=== PATIENT | female | born 1965 | race Caucasian/White ===

== ENCOUNTER 2018-04-30 10:11 | Emergency (ER) | payer MEDICAID ==
[2018-04-30] MEDS ORDERED: Sodium Chloride 0.9% 1,000 ML IV ONE (10:21)
[2018-04-30] MEDS ORDERED: HYDROmorphone 1 MG/ML Syringe IVPUSH ONE (10:21)
--- NOTE | 2018-04-30 10:23 | EDM.PDOC ---
ED HPI GENERAL MEDICAL PROBLEM - General Chief Complaint: Abdominal Pain Stated Complaint: AMB ABD PAIN Time Seen by Provider: 04/30/18 10:13 - History of Present Illness INITIAL COMMENTS - FREE TEXT/NARRATIVE: HISTORY AND PHYSICAL: History of present illness: The patient is a 53-year-old female with a known history of colon cancer with liver metastasis who has received chemotherapy 7 times every 2 weeks out in [place] on and is now here in town and has recently been seen in our oncology clinic last week. The patient is scheduled to start chemotherapy tomorrow and presents via EMS with uncontrolled upper abdominal pain. The patient tells me that back in [place] and she was on oral morphine at high doses and it was making her very drowsy and they switched her to OxyContin 30 mg twice a day and oxycodone for breakthrough pain and since she has relocated here her insurance is not covering those meds and she ran out of them a day and a half ago. She also tells me that the pain medicine was not helping her with the pain and the reason why she ran out so early is because she was taking more than 2 a day of the OxyContin because it was not controlling her pain. She did not discuss this with the oncology doctor last week when she was seen. She currently says she has felt very hot but has not documented fever at home and says she is concerned about infections. She has had a slight cough with clear mucus and has had urinary complaints of dysuria and frequency over the last 2 days. She has no flank pain and no lower abdominal or pelvic pain. She describes most of her pain as in the right upper quadrant and she is not having nausea or vomiting. The patient does not have a sore throat runny nose headache or back pain and no flank pain. The patient has a port. The patient says that she was unable to get a flu shot due to her cancer history. The patient had a CT scan of the chest abdomen and pelvis performed on April 24 which I reviewed. Please see below for those findings Review of systems: As per history of present illness and below otherwise all systems reviewed and negative. Past medical history: As per history of present illness and as reviewed below otherwise noncontributory. Surgical history: As per history of present illness and as reviewed below otherwise noncontributory. Social history: No reported history of drug or alcohol abuse. Family history: As per history of present illness and as reviewed below otherwise noncontributory. Physical exam: General: Well-developed well-nourished female who is nontoxic and very tearful and anxious on my evaluation. Vital signs are noted by me HEENT: Atraumatic, normocephalic, negative for conjunctival pallor or scleral icterus, mucous membranes moist, throat clear, neck supple, nontender, trachea midline. No cervical adenopathy or nuchal rigidity Lungs: Clear to auscultation, breath sounds equal bilaterally, chest nontender. Slight dry cough was heard in the ED but there is no wheezing stridor or worker breathing. Port is appreciated in the right upper chest wall Heart: S1S2, regular rate and rhythm no overt murmurs Abdomen: Soft, nondistended, with hypoactive bowel sounds. There is no rebound or guarding throughout the exam and there is only some mild right upper quadrant tenderness on deep palpation. On my exam the patient is less tender with distraction. There is some component of hepatomegaly but no splenomegaly is appreciated. There is also some mild tenderness suprapubically Negative for costovertebral tenderness. Pelvis: Stable nontender. Genitourinary: Deferred. Rectal: Deferred. Extremities: Atraumatic, negative for cords or calf pain. Neurovascular unremarkable. Full range of motion without defects or deficits Neuro: Awake, alert, oriented. Cranial nerves II through XII unremarkable. Cerebellum unremarkable. Motor and sensory unremarkable throughout. Exam nonfocal. Diagnostics: CBC CMP amylase lipase UA lactic acid INR influenza abdominal and chest x-rays CT scan of the chest abdomen and pelvis performed on April 24 as reviewed and it revealed 2 large right hepatic lobe masses the largest was 11 x 7 cm and the smaller was noted in the lower right hepatic lobe. There was not any bulky retroperitoneal adenopathy or ascites. There was mural thickening noted within the sigmoid colon and a few adjacent mildly prominent lymph nodes appreciated. The impression was that the mural wall thickening in the sigmoid was consistent with her primary malignancy and the hepatic masses or metastasis. There were no other acute findings. Therapeutics: Port access, IV fluids, Dilaudid Rocephin Percocet I did contact her oncology clinic should get the physician's notes from the patient's visit last week but they have not been transcribed yet and there is no physician available to access those and inform me of the care plan. financial services counselor was involved curbside on this case and says that the patient has had multiple narcotic prescriptions. According to what the patient is telling me the pain management treatment plan that she is on now is not adequate and she has had take more of her medication then she should be hence she ran out early. As the patient has chemotherapy scheduled tomorrow I told her that I could give her some Percocet to tide her over and then she could have a bigger discussion with Dr. Moser tomorrow about pain management. She is comfortable with this. I will also give her a dose of Rocephin here for her UTI and Levaquin for home. Impression: Abdominal pain with history of metastatic colon cancer, out of pain medication; UTI Definitive disposition and diagnosis as appropriate pending reevaluation and review of above. abdominal Pain Score (Numeric/FACES): 9 - Related Data Allergies Allergy/AdvReac Type Severity Reaction Status Date / Time Penicillins Allergy Hives Verified 04/30/18 10:15 phenobarbital Allergy Other Verified 04/30/18 10:15 phenytoin [From Dilantin] Allergy Hives Verified 04/30/18 10:15 Home Meds: Home Meds Docusate Sodium [Colace] 1 tab PO DAILY 04/30/18 [History] Morphine [Morphine 20 MG/ML Soln] 20 mg PO ASDIRECTED 04/30/18 [History] Ondansetron [Zofran ODT] 4 mg PO ASDIRECTED PRN 04/30/18 [History] Past Medical History HEENT History: Reports: None Cardiovascular History: Reports: None Respiratory History: Reports: None Gastrointestinal History: Reports: None Genitourinary History: Reports: None SOCK LINER History: Reports: None Musculoskeletal History: Reports: None Neurological History: Reports: Seizure Psychiatric History: Reports: None Endocrine/Metabolic History: Reports: None Hematologic History: Reports: None Immunologic History: Reports: None Oncologic (Cancer) History: Reports: Colon, Liver Dermatologic History: Reports: None - Infectious Disease History Infectious Disease History: Reports: Hepatitis C, Other (See Below) Other Infectious Disease History: reports taking interfuron and is cleared - Past Surgical History Head Surgeries/Procedures: Reports: None HEENT Surgical History: Reports: None Cardiovascular Surgical History: Reports: None Respiratory Surgical History: Reports: None GI Surgical History: Reports: None Female Surgical History: Reports: None Endocrine Surgical History: Reports: None Neurological Surgical History: Reports: None Musculoskeletal Surgical History: Reports: None Oncologic Surgical History: Reports: None Dermatological Surgical History: Reports: None Social & Family History - Family History Family Medical History: Noncontributory - Tobacco Use Smoking Status *Q: Former Smoker Used Tobacco, but Quit: Yes Month/Year Tobacco Last Used: 5 months - Caffeine Use Caffeine Use: Reports: None - Recreational Drug Use Recreational Drug Use: No ED ROS GENERAL - Review of Systems Review Of Systems: ROS reveals no pertinent complaints other than HPI. ED EXAM, GENERAL - Physical Exam Exam: See Below (See dictation) Course - Vital Signs Last Recorded V/S: Last Vital Signs Temp 35.7 C 04/30/18 10:16 Pulse 66 04/30/18 11:51 Resp 16 04/30/18 11:51 BP 125/91 H 04/30/18 11:51 Pulse Ox 100 04/30/18 11:51 - Orders/Labs/Meds Orders: Active Orders 24 hr Category Date Time Status CULTURE URINE [RM] Stat Lab 04/30/18 10:30 Received [email or web address] [Rocephin in Dextrose,Iso-Osm 1 GM/50 ML] 1 Med 04/30/18 12:13 Ordered gm Premix Bag 1 bag IV ONETIME Labs: Laboratory Tests 04/30/18 04/30/18 04/30/18 Range/Units 10:30 11:03 11:03 WBC 11.38 H (4.0-11.0) K/uL RBC 3.59 L (4.30-5.90) M/uL Hgb 9.6 L (12.0-16.0) g/dL Hct 30.1 L (36.0-46.0) % MCV 83.8 (80.0-98.0) fL MCH 26.7 L (27.0-32.0) pg MCHC 31.9 (31.0-37.0) g/dL RDW Std Deviation 51.5 (28.0-62.0) fl RDW Coeff of [place] 17 H (11.0-15.0) % Plt Count 499 H (150-400) K/uL MPV 8.70 (7.40-12.00) fL Neut % (Auto) 78.0 (48.0-80.0) % Lymph % (Auto) 13.4 L (16.0-40.0) % [place] % (Auto) 5.9 (0.0-15.0) % Eos % (Auto) 2.4 (0.0-7.0) % Baso % (Auto) 0.3 (0.0-1.5) % Neut # (Auto) 8.9 H (1.4-5.7) K/uL Lymph # (Auto) 1.5 (0.6-2.4) K/uL [place] # (Auto) 0.7 (0.0-0.8) K/uL Eos # (Auto) 0.3 (0.0-0.7) K/uL Baso # (Auto) 0.0 (0.0-0.1) K/uL Nucleated RBC % 0.0 /100WBC Nucleated RBCs # 0 K/uL INR Lactate (0.20-2.00) mmol/L Sodium 139 (136-145) mmol/L Potassium 4.6 (3.5-5.1) mmol/L Chloride 103 (98-107) mmol/L Carbon Dioxide 27.4 (21.0-32.0) mmol/L BUN 9 (7.0-18.0) mg/dL Creatinine 0.7 (0.6-1.0) mg/dL Est Cr Clr Drug Dosing 89.01 mL/min Estimated GFR (MDRD) > 60.0 ml/min Glucose 95 (74-106) mg/dL Calcium 9.4 (8.5-10.1) mg/dL Total Bilirubin 0.2 (0.2-1.0) mg/dL AST 24 (15-37) IU/L ALT 11 L (14-63) IU/L Alkaline Phosphatase 191 H (46-116) U/L Total Protein 7.6 (6.4-8.2) g/dL Albumin 2.6 L (3.4-5.0) g/dL Globulin 5.0 H (2.6-4.0) g/dL Albumin/Globulin Ratio 0.5 L (0.9-1.6) Amylase 23 L (25-115) U/L Lipase 80 (73-393) U/L Urine Color YELLOW Urine Appearance SLT CLOUDY Urine pH 6.0 (5.0-8.0) Ur Specific [place] 1.015 (1.001-1.035) Urine Protein NEGATIVE (NEGATIVE) mg/dL Urine Glucose (UA) NEGATIVE (NEGATIVE) mg/dL Urine Ketones NEGATIVE (NEGATIVE) mg/dL Urine Occult Blood NEGATIVE (NEGATIVE) Urine Nitrite NEGATIVE (NEGATIVE) Urine Bilirubin NEGATIVE (NEGATIVE) Urine Urobilinogen 0.2 (<2.0) EU/dL Ur Leukocyte Esterase MODERATE H (NEGATIVE) Urine RBC 1-2 (0-2/HPF) Urine WBC 20-30 (0-5/HPF) Ur Epithelial Cells MODERATE (NONE-FEW) Amorphous Sediment LIGHT (NEGATIVE) Urine Bacteria 2+ H (NEGATIVE) Urine Mucus LIGHT (NONE-MOD) 04/30/18 04/30/18 Range/Units 11:03 11:03 WBC (4.0-11.0) K/uL RBC (4.30-5.90) M/uL Hgb (12.0-16.0) g/dL Hct (36.0-46.0) % MCV (80.0-98.0) fL MCH (27.0-32.0) pg MCHC (31.0-37.0) g/dL RDW Std Deviation (28.0-62.0) fl RDW Coeff of [place] (11.0-15.0) % Plt Count (150-400) K/uL MPV (7.40-12.00) fL Neut % (Auto) (48.0-80.0) % Lymph % (Auto) (16.0-40.0) % [place] % (Auto) (0.0-15.0) % Eos % (Auto) (0.0-7.0) % Baso % (Auto) (0.0-1.5) % Neut # (Auto) (1.4-5.7) K/uL Lymph # (Auto) (0.6-2.4) K/uL [place] # (Auto) (0.0-0.8) K/uL Eos # (Auto) (0.0-0.7) K/uL Baso # (Auto) (0.0-0.1) K/uL Nucleated RBC % /100WBC Nucleated RBCs # K/uL INR 1.04 Lactate 0.8 (0.20-2.00) mmol/L Sodium (136-145) mmol/L Potassium (3.5-5.1) mmol/L Chloride (98-107) mmol/L Carbon Dioxide (21.0-32.0) mmol/L BUN (7.0-18.0) mg/dL Creatinine (0.6-1.0) mg/dL Est Cr Clr Drug Dosing mL/min Estimated GFR (MDRD) ml/min Glucose (74-106) mg/dL Calcium (8.5-10.1) mg/dL Total Bilirubin (0.2-1.0) mg/dL AST (15-37) IU/L ALT (14-63) IU/L Alkaline Phosphatase (46-116) U/L Total Protein (6.4-8.2) g/dL Albumin (3.4-5.0) g/dL Globulin (2.6-4.0) g/dL Albumin/Globulin Ratio (0.9-1.6) Amylase (25-115) U/L Lipase (73-393) U/L Urine Color Urine Appearance Urine pH (5.0-8.0) Ur Specific [place] (1.001-1.035) Urine Protein (NEGATIVE) mg/dL Urine Glucose (UA) (NEGATIVE) mg/dL Urine Ketones (NEGATIVE) mg/dL Urine Occult Blood (NEGATIVE) Urine Nitrite (NEGATIVE) Urine Bilirubin (NEGATIVE) Urine Urobilinogen (<2.0) EU/dL Ur Leukocyte Esterase (NEGATIVE) Urine RBC (0-2/HPF) Urine WBC (0-5/HPF) Ur Epithelial Cells (NONE-FEW) Amorphous Sediment (NEGATIVE) Urine Bacteria (NEGATIVE) Urine Mucus (NONE-MOD) Meds: Medications Discontinued Medications Generic Name Dose Route Start Last Admin Trade Name Freq PRN Reason Stop Dose Admin Hydromorphone HCl 1 mg 04/30/18 10:21 04/30/18 10:48 Dilaudid IVPUSH 04/30/18 10:22 1 mg ONETIME ONE Administration Sodium Chloride 1,000 mls @ 999 mls/hr 04/30/18 10:21 04/30/18 10:46 Normal Saline IV 04/30/18 11:21 999 mls/hr STAT ONE Administration Lorazepam 1 mg 04/30/18 11:36 04/30/18 11:48 Ativan IVPUSH 04/30/18 11:37 1 mg ONETIME ONE Administration Departure - Departure Time of Disposition: 12:15 Disposition: Home, Self-Care 01 Condition: Good Clinical Impression: Metastatic cancer Abdominal pain Qualifiers: Abdominal location: right upper quadrant Qualified Code(s): R10.11 - Right upper quadrant pain UTI (urinary tract infection) Qualifiers: Urinary tract infection type: site unspecified Hematuria presence: without hematuria Qualified Code(s): N39.0 - Urinary tract infection, site not specified - Discharge Information Forms: ED Department Discharge Additional Instructions: The following information is given to patients seen in the emergency department who are being discharged to home. This information is to outline your options for follow-up care. We provide all patients seen in our emergency department with a follow-up referral. The need for follow-up, as well as the timing and circumstances, are variable depending upon the specifics of your emergency department visit. If you don't have a primary care physician on staff, we will provide you with a referral. We always advise you to contact your personal physician following an emergency department visit to inform them of the circumstance of the visit and for follow-up with them and/or the need for any referrals to a consulting specialist. The emergency department will also refer you to a specialist when appropriate. This referral assures that you have the opportunity for followup care with a specialist. All of these measure are taken in an effort to provide you with optimal care, which includes your followup. Under all circumstances we always encourage you to contact your private physician who remains a resource for coordinating your care. When calling for followup care, please make the office aware that this follow-up is from your recent emergency room visit. If for any reason you are refused follow-up, please contact the emergency department at and ask to speak to the emergency department charge nurse. [facility] Primary care- [place] [address] Please keep your appointment tomorrow in the oncology clinic for your chemotherapy and please discuss with the physician there tomorrow pain management treatment plans for the future. I've given you some Percocet to tide her over for the next 24 hours. Please take antibiotics as directed until they' re finished. Return to ER as needed and as discussed. - My Orders Last 24 Hours: My Active Orders 04/30/18 10:30 CULTURE URINE [RM] Stat 04/30/18 12:13 cefTRIAXone [Rocephin in Dextrose,Iso-Osm 1 GM/50 ML] 1 gm Premix Bag 1 bag IV ONETIME - Assessment/Plan Last 24 Hours: My Active Orders 04/30/18 10:30 CULTURE URINE [RM] Stat 04/30/18 12:13 cefTRIAXone [Rocephin in Dextrose,Iso-Osm 1 GM/50 ML] 1 gm Premix Bag 1 bag IV ONETIME
[2018-04-30] MEDS ORDERED: LORazepam 2 MG/ML SDV IVPUSH ONE (11:36)
[2018-04-30 11:39] LABS: CHLORIDE,CL 103 mmol/L (98-107); SODIUM,NA 139 mmol/L (136-145)
--- NOTE | 2018-04-30 11:55 | CR ---
EXAMINATION: Abdominal series HISTORY: Pain COMPARISON: CT abdomen and pelvis dated 04/24/2017 TECHNIQUE: PA chest and AP and upright views of the abdomen FINDINGS: The lungs are clear, no focal consolidation. No pleural effusion or pneumothorax. Atelectasis is noted within the left lung base. Right-sided portacatheter is noted. Cardiomediastinal silhouette is normal. There is a nonobstructive bowel gas pattern. No organomegaly or abnormal calcifications projecting over the kidneys. Pelvic phleboliths are noted. Mild dextrocurvature of the lumbar spine. No suspicious osseous abnormality is identified. IMPRESSION: 1. Mild left basilar atelectasis. 2. Otherwise no acute findings within the abdomen or pelvis.
[2018-04-30] MEDS ORDERED: cefTRIAXone 1 GM in Premix Bag 1 BAG IV ONE (12:13)
== END 2018-04-30 13:30 | disposition home or self-care (01) ==
LOC: MW.ED 10:11
DX: N39.0 Urinary tract infection, site not specified (principal); C18.9 Malignant neoplasm of colon, unspecified; C78.7 Secondary malignant neoplasm of liver and intrahepatic bile duct; Z88.0 Allergy status to penicillin; Z88.8 Allergy status to other drugs, medicaments and biological substances; Z79.899 Other long term (current) drug therapy; Z87.891 Personal history of nicotine dependence
CPT/HCPCS: 36415; 74022; 80053; 81001; 82150; 83605; 83690; 85025; 85610; 87086; 87088; 87186; 87804; 96361; 96365; 96375; 99284; J0696; J1170; J2060; J7040; 99283

== ENCOUNTER 2018-05-17 08:45 | Emergency (ER) | payer MEDICAID ==
[2018-05-17] MEDS ORDERED: Sodium Chloride 0.9% 1,000 ML IV ONE (08:55)
[2018-05-17] MEDS ORDERED: HYDROmorphone 2 MG/ML SDV IVPUSH ONE (08:55)
--- NOTE | 2018-05-17 08:57 | EDM.PDOC ---
ED HPI GENERAL MEDICAL PROBLEM - General Stated Complaint: CANCER/PAIN Time Seen by Provider: 05/17/18 08:55 Source of Information: Reports: Patient, EMS - History of Present Illness INITIAL COMMENTS - FREE TEXT/NARRATIVE: HISTORY AND PHYSICAL: History of present illness: Patient arrives via EMS She is a cancer patient on chemotherapy last chemotherapy 1 month prior, she is out of pain medication or complaint is pain management Denies fever nausea vomiting chills sweats no chest pain shortness breath headache dizziness palpitation no bowel or urine symptoms [Apparently patient is undergoing some medication changes she has been on OxyContin, she has recent morphine ordered however could not afford this and fentanyl patches have been considered although currently she is out of all medication ] Review of systems: As per history of present illness and below otherwise all systems reviewed and negative. Past medical history: As per history of present illness and as reviewed below otherwise noncontributory. Surgical history: As per history of present illness and as reviewed below otherwise noncontributory. Social history: No reported history of drug or alcohol abuse. Family history: As per history of present illness and as reviewed below otherwise noncontributory. Physical exam: HEENT: Atraumatic, normocephalic, pupils reactive, negative for conjunctival pallor or scleral icterus, mucous membranes moist, throat clear, neck supple, nontender, trachea midline. Lungs: Clear to auscultation, breath sounds equal bilaterally, chest nontender. Heart: S1S2, regular, negative for clicks, rubs, or JVD. Abdomen: Soft, nondistended, nontender. Negative for masses or hepatosplenomegaly. Negative for costovertebral tenderness. Pelvis: Stable nontender. Genitourinary: Deferred. Rectal: Deferred. Extremities: Atraumatic, negative for cords or calf pain. Neurovascular unremarkable. Neuro: Awake, alert, oriented. Cranial nerves II through XII unremarkable. Cerebellum unremarkable. Motor and sensory unremarkable throughout. Exam nonfocal. Diagnostics: Lab on file from May 08 ] Therapeutics: [1 L normal saline bolus Dilaudid 1 mg IV] Ativan 1 mg IV I did discuss hospice care with the patient as she had questions, apparently she has a meeting for palliative care today She is feeling much betterAt current She is now hungry and has asked for a sandwich Patient is now for discharge she will be filling the prescription she has for her medication she has morphine and fentanyl patch prescriptions available to her via primary care Impression: pain Indication noncompliance Chronic history of baseline ] Definitive disposition and diagnosis as appropriate pending reevaluation and review of above. Ribs Pain Score (Numeric/FACES): 9 - Related Data Allergies Allergy/AdvReac Type Severity Reaction Status Date / Time Penicillins Allergy Hives Verified 05/17/18 09:55 phenobarbital Allergy Other Verified 05/17/18 09:55 phenytoin [From Dilantin] Allergy Hives Verified 05/17/18 09:55 Home Meds: Home Meds Docusate Sodium [Colace] 1 tab PO DAILY 04/30/18 [History] Morphine [Morphine 20 MG/ML Soln] 20 mg PO ASDIRECTED 04/30/18 [History] Ondansetron [Zofran ODT] 4 mg PO ASDIRECTED PRN 04/30/18 [History] Past Medical History HEENT History: Reports: None Cardiovascular History: Reports: None Respiratory History: Reports: None Gastrointestinal History: Reports: None Genitourinary History: Reports: None MONEY EXAMINER History: Reports: None Musculoskeletal History: Reports: None Neurological History: Reports: Seizure Psychiatric History: Reports: None Endocrine/Metabolic History: Reports: None Hematologic History: Reports: None Immunologic History: Reports: None Oncologic (Cancer) History: Reports: Colon, Liver Dermatologic History: Reports: None - Infectious Disease History Infectious Disease History: Reports: Hepatitis C, Other (See Below) Other Infectious Disease History: reports taking interfuron and is cleared - Past Surgical History Head Surgeries/Procedures: Reports: None HEENT Surgical History: Reports: None Cardiovascular Surgical History: Reports: None Respiratory Surgical History: Reports: None GI Surgical History: Reports: None Female Surgical History: Reports: None Endocrine Surgical History: Reports: None Neurological Surgical History: Reports: None Musculoskeletal Surgical History: Reports: None Oncologic Surgical History: Reports: None Dermatological Surgical History: Reports: None Social & Family History - Family History Family Medical History: Noncontributory - Caffeine Use Caffeine Use: Reports: None ED ROS GENERAL - Review of Systems Review Of Systems: See Below ED EXAM, GENERAL - Physical Exam Exam: See Below Course - Vital Signs Last Recorded V/S: Last Vital Signs Temp 98.0 F 05/17/18 09:56 Pulse 96 05/17/18 09:56 Resp 16 05/17/18 09:56 BP 140/105 H 05/17/18 09:56 Pulse Ox 98 05/17/18 09:56 - Orders/Labs/Meds Meds: Medications Discontinued Medications Generic Name Dose Route Start Last Admin Trade Name [place] PRN Reason Stop Dose Admin Hydromorphone HCl 1 mg 05/17/18 08:55 05/17/18 09:25 Dilaudid IVPUSH 05/17/18 08:56 Not Given ONETIME ONE Hydromorphone HCl 1 mg 05/17/18 09:03 05/17/18 09:25 Dilaudid IVPUSH 05/17/18 09:04 1 mg ONETIME ONE Administration Sodium Chloride 1,000 mls @ 999 mls/hr 05/17/18 08:55 05/17/18 09:25 Normal Saline IV 05/17/18 09:55 999 mls/hr STAT ONE Administration Lorazepam 1 mg 05/17/18 10:45 05/17/18 11:13 Ativan IVPUSH 05/17/18 10:46 1 mg ONETIME ONE Administration Departure - Departure Time of Disposition: 11:58 Disposition: Home, Self-Care 01 Condition: Good Clinical Impression: Metastatic cancer Abdominal pain Qualifiers: Abdominal location: right upper quadrant Qualified Code(s): R10.11 - Right upper quadrant pain - Discharge Information Additional Instructions: The following information is given to patients seen in the emergency department who are being discharged to home. This information is to outline your options for follow-up care. We provide all patients seen in our emergency department with a follow-up referral. The need for follow-up, as well as the timing and circumstances, are variable depending upon the specifics of your emergency department visit. If you don't have a primary care physician on staff, we will provide you with a referral. We always advise you to contact your personal physician following an emergency department visit to inform them of the circumstance of the visit and for follow-up with them and/or the need for any referrals to a consulting specialist. The emergency department will also refer you to a specialist when appropriate. This referral assures that you have the opportunity for follow-up care with a specialist. All of these measure are taken in an effort to provide you with optimal care, which includes your follow-up. Under all circumstances we always encourage you to contact your private physician who remains a resource for coordinating your care. When calling for follow-up care, please make the office aware that this follow-up is from your recent emergency room visit. If for any reason you are refused follow-up, please contact the [facility] emergency department at and asked to speak to the emergency department charge nurse.
[2018-05-17] MEDS ORDERED: HYDROmorphone 1 MG/ML Syringe IVPUSH ONE (09:03)
[2018-05-17] MEDS ORDERED: LORazepam 2 MG/ML SDV IVPUSH ONE (10:45)
[2018-05-17] MEDS ORDERED: Heparin Sodium 10 Units/ML 5 ML Syringe FLUSH STA (12:03)
[2018-05-17] MEDS ORDERED: HYDROmorphone 2 MG/ML SDV IVPUSH PRN (12:20)
[2018-05-17] MEDS ORDERED: HYDROmorphone 2 MG/ML Syringe IVPUSH ONE (12:33)
== END 2018-05-17 12:59 | disposition home or self-care (01) ==
LOC: MW.ED 08:45
DX: R10.11 Right upper quadrant pain (principal); C79.9 Secondary malignant neoplasm of unspecified site; Z91.19 Patient's noncompliance with other medical treatment and regimen; Z88.0 Allergy status to penicillin; Z88.8 Allergy status to other drugs, medicaments and biological substances; Z79.899 Other long term (current) drug therapy
CPT/HCPCS: 96361; 96374; 96375; 96376; 99284; J1170; J1642; J2060; J7040; 99282

== ENCOUNTER 2018-07-06 14:29 | Emergency (ER) | payer MEDICAID ==
[2018-07-06] MEDS ORDERED: Sodium Chloride 0.9% 1,000 ML IV SCH (14:45)
[2018-07-06] MEDS ORDERED: LORazepam 0.5 MG Tab PO ONE (15:41)
[2018-07-06 15:50] LABS: CHLORIDE,CL 94 mmol/L (98-107); SODIUM,NA 131 mmol/L (136-145)
--- NOTE | 2018-07-06 15:52 | CR ---
INDICATION: Pain. Short of breath. TECHNIQUE: PA and lateral views of the chest. COMPARISON: 04/30/2018. 02/08/2018. FINDINGS: Right-sided infusion port and catheter are again noted. The cardiac, mediastinal and hilar contours are stable and unremarkable. Normal pulmonary vasculature. Lungs are grossly clear. No pleural fluid or pneumothorax. No acute osseous abnormality is identified. IMPRESSION: No signs of acute thoracic disease. Dictated by Zackary Astudillo MD @ 07/06/2018 3:49:05 PM Dictated by: Zackary Astudillo MD @ 07/06/2018 15:49:30 (Electronically Signed)
[2018-07-06] MEDS ORDERED: Albuterol/Ipratropium 3.0-0.5 MG/3 ML Neb Soln NEB ONE (16:05)
--- NOTE | 2018-07-06 16:20 | EDM.PDOC ---
ED HPI GENERAL MEDICAL PROBLEM - General Chief Complaint: Respiratory Problem Stated Complaint: COUGH FEVER ALSO HAS STAGE 4 COL AND BERTHA CANCER Time Seen by Provider: 07/06/18 16:18 Source of Information: Reports: Patient - History of Present Illness INITIAL COMMENTS - FREE TEXT/NARRATIVE: HISTORY AND PHYSICAL: History of present illness: []Patient with stage IV colon cancer on chemotherapy presents with intermittent fever subjectively at home has taken Tylenol She has had multiple sick contacts with some children visiting her yesterday She complains of myalgias and cough subjective fever no nausea vomiting chills sweats no chest pain shortness breath headache dizziness or palpitation no bowel or urine symptoms Review of systems: As per history of present illness and below otherwise all systems reviewed and negative. Past medical history: As per history of present illness and as reviewed below otherwise noncontributory. Surgical history: As per history of present illness and as reviewed below otherwise noncontributory. Social history: No reported history of drug or alcohol abuse. Family history: As per history of present illness and as reviewed below otherwise noncontributory. Physical exam: HEENT: Atraumatic, normocephalic, pupils reactive, negative for conjunctival pallor or scleral icterus, mucous membranes moist, throat clear, neck supple, nontender, trachea midline. Lungs: Clear to auscultation, breath sounds equal bilaterally, chest nontender. Heart: S1S2, regular, negative for clicks, rubs, or JVD. Abdomen: Soft, nondistended, nontender. Negative for masses or hepatosplenomegaly. Negative for costovertebral tenderness. Pelvis: Stable nontender. Genitourinary: Deferred. Rectal: Deferred. Extremities: Atraumatic, negative for cords or calf pain. Neurovascular unremarkable. Neuro: Awake, alert, oriented. Cranial nerves II through XII unremarkable. Cerebellum unremarkable. Motor and sensory unremarkable throughout. Exam nonfocal. Diagnostics: [CBC CMP UA chest 1 view influenza ] Therapeutics: [Tamiflu Phenergan with codeine HFA ] Patient offered admission and declines strongly encouraged to return if symptoms persist or worsen Impression: [ influenza Chronic history of baseline ] Definitive disposition and diagnosis as appropriate pending reevaluation and review of above. headache Pain Score (Numeric/FACES): 9 - Related Data Allergies Allergy/AdvReac Type Severity Reaction Status Date / Time Penicillins Allergy Hives Verified 07/06/18 14:42 phenobarbital Allergy Other Verified 07/06/18 14:42 phenytoin [From Dilantin] Allergy Hives Verified 07/06/18 14:42 Home Meds: Home Meds Docusate Sodium [Colace] 1 tab PO DAILY 04/30/18 [History] Morphine [Morphine 20 MG/ML Soln] 20 mg PO ASDIRECTED 04/30/18 [History] Ondansetron [Zofran ODT] 4 mg PO ASDIRECTED PRN 04/30/18 [History] Past Medical History HEENT History: Reports: None Cardiovascular History: Reports: None Respiratory History: Reports: None Gastrointestinal History: Reports: None Genitourinary History: Reports: None [employer] History: Reports: None Musculoskeletal History: Reports: None Neurological History: Reports: Seizure Psychiatric History: Reports: None Endocrine/Metabolic History: Reports: None Hematologic History: Reports: None Immunologic History: Reports: None Oncologic (Cancer) History: Reports: Colon, Liver Dermatologic History: Reports: None - Infectious Disease History Infectious Disease History: Reports: None Other Infectious Disease History: reports taking interfuron and is cleared - Past Surgical History Head Surgeries/Procedures: Reports: None HEENT Surgical History: Reports: None Cardiovascular Surgical History: Reports: None Respiratory Surgical History: Reports: None GI Surgical History: Reports: None Female Surgical History: Reports: None Endocrine Surgical History: Reports: None Neurological Surgical History: Reports: None Musculoskeletal Surgical History: Reports: None Oncologic Surgical History: Reports: None Dermatological Surgical History: Reports: None Social & Family History - Family History Family Medical History: Noncontributory - Tobacco Use Smoking Status *Q: Former Smoker Used Tobacco, but Quit: Yes Month/Year Tobacco Last Used: 2018 - Caffeine Use Caffeine Use: Reports: None - Recreational Drug Use Recreational Drug Use: No ED ROS GENERAL - Review of Systems Review Of Systems: See Below ED EXAM, GENERAL - Physical Exam Exam: See Below Course - Vital Signs Last Recorded V/S: Last Vital Signs Temp 97.8 F 07/06/18 14:42 Pulse 103 H 07/06/18 14:42 Resp 20 07/06/18 14:42 BP 116/77 07/06/18 14:42 Pulse Ox 94 L 07/06/18 14:42 - Orders/Labs/Meds Orders: Active Orders 24 hr Category Date Time Status EKG Documentation Completion [RC] STAT Care 07/06/18 14:46 Active RT Aerosol Therapy [RC] ASDIRECTED Care 07/06/18 16:05 Active CULTURE BLOOD [BC] Stat Lab 07/06/18 14:51 Received CULTURE BLOOD [] Stat Lab 07/06/18 15:09 Received CULTURE STREP A CONFIRMATION [] Stat Lab 07/06/18 15:37 Results STREP SCRN A RAPID W CULT CONF [] Stat Lab 07/06/18 15:37 Results Sodium Chloride 0.9% [Normal Saline] 1,000 ml Med 07/06/18 14:45 Active IV STAT Blood Culture x2 Reflex Set [OM.PC] Stat Oth 07/06/18 14:45 Ordered Medication Orders Sodium Chloride (Normal Saline) 1,000 mls @ 125 mls/hr IV STAT KEVIN Last Admin: 07/06/18 15:03 Dose: 125 mls/hr Labs: Laboratory Tests 07/06/18 07/06/18 07/06/18 Range/Units 14:51 14:51 15:50 WBC 6.39 (4.0-11.0) K/uL RBC 4.08 L (4.30-5.90) M/uL Hgb 10.6 L (12.0-16.0) g/dL Hct 32.9 L (36.0-46.0) % MCV 80.6 (80.0-98.0) fL MCH 26.0 L (27.0-32.0) pg MCHC 32.2 (31.0-37.0) g/dL RDW Std Deviation 66.9 H (28.0-62.0) fl RDW Coeff of [place] 23 H (11.0-15.0) % Plt Count 282 (150-400) K/uL MPV 8.60 (7.40-12.00) fL Neut % (Auto) 87.9 H (48.0-80.0) % Lymph % (Auto) 7.0 L (16.0-40.0) % [place] % (Auto) 4.9 (0.0-15.0) % Eos % (Auto) 0.0 (0.0-7.0) % Baso % (Auto) 0.2 (0.0-1.5) % Neut # (Auto) 5.6 (1.4-5.7) K/uL Lymph # (Auto) 0.5 L (0.6-2.4) K/uL [place] # (Auto) 0.3 (0.0-0.8) K/uL Eos # (Auto) 0.0 (0.0-0.7) K/uL Baso # (Auto) 0.0 (0.0-0.1) K/uL Nucleated RBC % 0.0 /100WBC Nucleated RBCs # 0 K/uL Sodium 131 L (136-145) mmol/L Potassium 3.7 (3.5-5.1) mmol/L Chloride 94 L (98-107) mmol/L Carbon Dioxide 23.3 (21.0-32.0) mmol/L BUN 14 (7.0-18.0) mg/dL Creatinine 1.1 H (0.6-1.0) mg/dL Est Cr Clr Drug Dosing 56.64 mL/min Estimated GFR (MDRD) 52.4 ml/min Glucose 158 H (74-106) mg/dL Calcium 9.1 (8.5-10.1) mg/dL Total Bilirubin 0.3 (0.2-1.0) mg/dL AST 38 H (15-37) IU/L ALT 25 (14-63) IU/L Alkaline Phosphatase 151 H (46-116) U/L Troponin I < 0.050 (0.000-0.056) ng/mL Total Protein 7.4 (6.4-8.2) g/dL Albumin 3.3 L (3.4-5.0) g/dL Globulin 4.1 H (2.6-4.0) g/dL Albumin/Globulin Ratio 0.8 L (0.9-1.6) Lipase 46 L (73-393) U/L Urine Color YELLOW Urine Appearance CLEAR Urine pH 6.0 (5.0-8.0) Ur Specific [place] <= 1.005 (1.001-1.035) Urine Protein NEGATIVE (NEGATIVE) mg/dL Urine Glucose (UA) NEGATIVE (NEGATIVE) mg/dL Urine Ketones NEGATIVE (NEGATIVE) mg/dL Urine Occult Blood NEGATIVE (NEGATIVE) Urine Nitrite NEGATIVE (NEGATIVE) Urine Bilirubin NEGATIVE (NEGATIVE) Urine Urobilinogen 0.2 (<2.0) EU/dL Ur Leukocyte Esterase NEGATIVE (NEGATIVE) Meds: Medications Generic Name Dose Route Start Last Admin Trade Name Freq PRN Reason Stop Dose Admin Sodium Chloride 1,000 mls @ 125 mls/hr 07/06/18 14:45 07/06/18 15:03 Normal Saline IV 125 mls/hr STAT KEVIN Administration Discontinued Medications Generic Name Dose Route Start Last Admin Trade Name Freq PRN Reason Stop Dose Admin Albuterol/Ipratropium 3 ml 07/06/18 16:05 Duoneb 3.0-0.5 Mg/3 Ml NEB 07/06/18 16:06 ONETIME ONE Lorazepam 0.5 mg 07/06/18 15:41 07/06/18 15:53 Ativan PO 07/06/18 15:42 0.5 mg ONETIME ONE Administration Departure - Departure Time of Disposition: 16:20 Disposition: Home, Self-Care 01 Condition: Fair Clinical Impression: Influenza A - Discharge Information Referrals: PCP,Unknown [Primary Care Provider] - Additional Instructions: The following information is given to patients seen in the emergency department who are being discharged to home. This information is to outline your options for follow-up care. We provide all patients seen in our emergency department with a follow-up referral. The need for follow-up, as well as the timing and circumstances, are variable depending upon the specifics of your emergency department visit. If you don't have a primary care physician on staff, we will provide you with a referral. We always advise you to contact your personal physician following an emergency department visit to inform them of the circumstance of the visit and for follow-up with them and/or the need for any referrals to a consulting specialist. The emergency department will also refer you to a specialist when appropriate. This referral assures that you have the opportunity for follow-up care with a specialist. All of these measure are taken in an effort to provide you with optimal care, which includes your follow-up. Under all circumstances we always encourage you to contact your private physician who remains a resource for coordinating your care. When calling for follow-up care, please make the office aware that this follow-up is from your recent emergency room visit. If for any reason you are refused follow-up, please contact the [facility] emergency department at and asked to speak to the emergency department charge nurse. - My Orders Last 24 Hours: My Active Orders 07/06/18 14:45 Sodium Chloride 0.9% [Normal Saline] 1,000 ml IV STAT Blood Culture x2 Reflex Set [OM.PC] Stat 07/06/18 14:46 EKG Documentation Completion [RC] STAT 07/06/18 14:51 CULTURE BLOOD [BC] Stat 07/06/18 15:09 CULTURE BLOOD [BC] Stat 07/06/18 15:37 CULTURE STREP A CONFIRMATION [RM] Stat STREP SCRN A RAPID W CULT CONF [RM] Stat 07/06/18 16:05 RT Aerosol Therapy [RC] ASDIRECTED - Assessment/Plan Last 24 Hours: My Active Orders 07/06/18 14:45 Sodium Chloride 0.9% [Normal Saline] 1,000 ml IV STAT Blood Culture x2 Reflex Set [OM.PC] Stat 07/06/18 14:46 EKG Documentation Completion [RC] STAT 07/06/18 14:51 CULTURE BLOOD [BC] Stat 07/06/18 15:09 CULTURE BLOOD [BC] Stat 07/06/18 15:37 CULTURE STREP A CONFIRMATION [RM] Stat STREP SCRN A RAPID W CULT CONF [RM] Stat 07/06/18 16:05 RT Aerosol Therapy [RC] ASDIRECTED
== END 2018-07-06 16:40 | disposition home or self-care (01) ==
LOC: MW.ED 14:29
DX: J10.1 Influenza due to other identified influenza virus with other respiratory manifestations (principal); Z88.0 Allergy status to penicillin; Z87.891 Personal history of nicotine dependence
CPT/HCPCS: 36415; 71046; 80053; 81003; 83690; 84484; 85025; 87040; 87081; 87804; 87807; 87880; 93005; 94640; 96360; 99284; A9270; J1642; J7040; J7620-GY

== ENCOUNTER 2019-01-05 11:35 | Inpatient (IN) | payer MEDICAID ==
[2019-01-05] MEDS ORDERED: Sodium Chloride 0.9% 10 ML Syringe FLUSH PRN (11:59)
[2019-01-05] MEDS ORDERED: Sodium Chloride 0.9% 2.5 ML Syringe FLUSH PRN (11:59)
[2019-01-05] MEDS ORDERED: LORazepam 2 MG/ML SDV IVPUSH ONE (12:00)
--- NOTE | 2019-01-05 12:01 | EDM.PDOC ---
ED HPI GENERAL MEDICAL PROBLEM - General Chief Complaint: Abdominal Pain Stated Complaint: BLOODY STOOL Time Seen by Provider: 01/05/19 11:44 - History of Present Illness INITIAL COMMENTS - FREE TEXT/NARRATIVE: HISTORY AND PHYSICAL: History of present illness: The patient is a 53-year-old female who follows here in our oncology clinic and has stage IV colon cancer with increasing pulmonary and liver metastases and presents via EMS complaining of increasing abdominal pain over the last 1 week despite her home medication regimen and an episode of bleeding per rectum that occurred today. According to the computer her last CT scan was performed on December 07 was compared to one done on September 05 and indicated increasing in the number and size of her pulmonary metastasis and significant increase in her liver metastasis number and size as well as indication that there are intraperitoneal metastasis. The patient has undergone chemotherapy here and currently is being evaluated by our oncologist for a last ditch effort at a different chemotherapy and the patient says she underwent a IFC of one of the lesions in her liver yesterday at an outside clinic, the location of which she is unsure of, in order to see if the chemotherapy he wants to give her will work. The patient says the pain in her abdomen is not different than her prior pain but has just been accelerated over the last week and she has not talked to her primary care provider about it. She also says that she has increased distress with breathing when she lays flat and she was told by the doctor yesterday where she had her biopsy that she did have some fluid in her lungs as well as some fluid in her abdomen but it was not significant that he needed drainage. She has no chest pain no fevers no flank pain and no urinary issues. The patient says she had a hard bowel movement this morning and she felt like stool was stuck so she put her finger up her rectum and removed some stool and then caused bleeding per rectum. She is not using a pad or bleeding in her underwear currently. With her cancer therapy her last chemotherapy was 1 month ago and she has not had a Neupogen shot for the last one year. She has never had surgical resection of her primary cancer. Review of systems: As per history of present illness and below otherwise all systems reviewed and negative. Past medical history: As per history of present illness and as reviewed below otherwise noncontributory. Surgical history: As per history of present illness and as reviewed below otherwise noncontributory. Social history: No reported history of drug or alcohol abuse. Family history: As per history of present illness and as reviewed below otherwise noncontributory. Physical exam: General: Well-developed well-nourished ill-looking woman who is nontoxic and moves easily in the ED without distress. She is not breathless on my evaluation. HEENT: Atraumatic, normocephalic, pupils reactive, she does have some conjunctival pallor but no scleral icterus, mucous membranes moist, throat clear , neck supple, nontender, trachea midline. Lungs: Clear to auscultation, breath sounds equal bilaterally, chest nontender. There is some diminished breath sounds in the bases but no wheezing stridor work of breathing Heart: S1S2, regular, negative for clicks, rubs, or JVD. Abdomen: Soft, nondistended, abdomen is rotund with a slight fluid wave and there is some tympany on percussion and there is mild diffuse abdominal tenderness without localization. There is a small areas seen at her mid right abdomen that is a purplish dot that the patient says is the area that they did the biopsy from. There is no erythema or ecchymosis in this region of the abdominal wall. Negative for costovertebral tenderness. Pelvis: Stable nontender. Genitourinary: Deferred. Rectal: Tone is normal and there is some hard stool high in the vault and there is no blood masses or lesions appreciated on my digital exam. There is a small amount of pink tinged mucus but no kristine blood or clots are seen Extremities: Atraumatic, negative for cords or calf pain. Neurovascular unremarkable. Pedal edema or leg asymmetry Neuro: Awake, alert, oriented. Cranial nerves II through XII unremarkable. Cerebellum unremarkable. Motor and sensory unremarkable throughout. Exam nonfocal. Skin: No rashes or lesions or petechiae and the patient has an overall pallor appearance Diagnostics: CBC CMP INR lactic acid UA with reflex--urine culture was ordered cultures 2 chest x-ray CT scan of the abdomen and pelvis Therapeutics: Patient is concerned about port access because she thinks it is "kinked" so I will perform the chest x-ray and attempted to start a peripheral line, patient requests Ativan, patient has a patch in place. Levaquin, maintenance IV fluids Today's hemoglobin of 8.2 is lower than it usually runs which according to the computer is in the 10.2 range in all of her blood work in October and November. Her WBC count is also elevated 18.83 which is a bump upwards. 1355: Case was discussed with our hospitalist Dr. Castorena; she agrees for observation admission and antibiotics, Levaquin, for the pneumonia and she agrees with conservative watchfulness of the patient's history of passing blood per rectum and her lower hemoglobin. She is aware of her older labs and her baselines. Patient is agreeable with observation admission. Impression: Left lower lobe pneumonia, new anemia and leukocytosis, history of advanced colon cancer with metastasis Definitive disposition and diagnosis as appropriate pending reevaluation and review of above. Abdominal Pain Pain Score (Numeric/FACES): 7 - Related Data Allergies Allergy/AdvReac Type Severity Reaction Status Date / Time Penicillins Allergy Hives Verified 07/06/18 14:42 phenobarbital Allergy Other Verified 07/06/18 14:42 phenytoin [From Dilantin] Allergy Hives Verified 07/06/18 14:42 Home Meds: Home Meds Ondansetron [Zofran] 8 mg PO Q8H PRN 07/07/18 [History] Prochlorperazine Maleate [Compazine] 10 mg PO TID 07/07/18 [History] amLODIPine [Norvasc] 5 mg PO DAILY 07/07/18 [History] oxyCODONE 10 mg PO Q6H PRN 07/07/18 [History] Albuterol Sulfate [Proair Hfa] 2 puff IH Q4H PRN 01/05/19 [History] fentaNYL [Duragesic] 1 patch TD Q72H 01/05/19 [History] Past Medical History HEENT History: Reports: None Cardiovascular History: Reports: Hypertension Respiratory History: Reports: COPD Gastrointestinal History: Reports: None Genitourinary History: Reports: None EXECUTIVE ASSISTANT History: Reports: None Musculoskeletal History: Reports: None Neurological History: Reports: Seizure Psychiatric History: Reports: None Endocrine/Metabolic History: Reports: None Hematologic History: Reports: None Immunologic History: Reports: None Oncologic (Cancer) History: Reports: Colon, Liver Dermatologic History: Reports: None - Infectious Disease History Infectious Disease History: Reports: None Other Infectious Disease History: reports taking interfuron and is cleared - Past Surgical History Head Surgeries/Procedures: Reports: None HEENT Surgical History: Reports: None Cardiovascular Surgical History: Reports: None Respiratory Surgical History: Reports: None GI Surgical History: Reports: None Female Surgical History: Reports: None Endocrine Surgical History: Reports: None Neurological Surgical History: Reports: None Musculoskeletal Surgical History: Reports: None Oncologic Surgical History: Reports: None Dermatological Surgical History: Reports: None Social & Family History - Family History Family Medical History: Noncontributory - Tobacco Use Smoking Status *Q: Former Smoker Used Tobacco, but Quit: Yes Month/Year Tobacco Last Used: 2018 - Caffeine Use Caffeine Use: Reports: None - Recreational Drug Use Recreational Drug Use: No ED ROS GENERAL - Review of Systems Review Of Systems: ROS reveals no pertinent complaints other than HPI. ED EXAM, GENERAL - Physical Exam Exam: See Below (See dictation) Course - Vital Signs Last Recorded V/S: Last Vital Signs Temp 35.6 C 01/05/19 11:39 Pulse 99 01/05/19 13:22 Resp 16 01/05/19 13:22 BP 122/83 01/05/19 13:22 Pulse Ox 94 L 01/05/19 13:22 - Orders/Labs/Meds Orders: Active Orders 24 hr Category Date Time Status Patient Status [ADT] Stat ADT 01/05/19 14:06 Ordered Oxygen Therapy, ED [RC] ASDIRECTED Care 01/05/19 11:59 Active Pulse Oximetry [RC] ASDIRECTED Care 01/05/19 11:59 Active CULTURE BLOOD [BC] Stat Lab 01/05/19 13:55 Ordered CULTURE BLOOD [BC] Stat Lab 01/05/19 13:55 Ordered CULTURE URINE [RM] Stat Lab 01/05/19 13:15 Received Levofloxacin/Dextrose 5%-Water [Levaquin in D5W 750 MG/ Med 01/05/19 14:06 Ordered 150 ML] 750 mg Premix Bag 1 bag IV ONETIME Sodium Chloride 0.9% [Saline Flush] Med 01/05/19 11:59 Active 10 ml FLUSH ASDIRECTED PRN Sodium Chloride 0.9% [Saline Flush] Med 01/05/19 11:59 Active 2.5 ml FLUSH ASDIRECTED PRN Blood Culture x2 Reflex Set [OM.PC] Stat Oth 01/05/19 13:55 Ordered Saline Lock Insert [OM.PC] Stat Oth 01/05/19 11:59 Ordered Medication Orders Sodium Chloride (Saline Flush) 10 ml FLUSH ASDIRECTED PRN PRN Reason: Keep Vein Open Last Admin: 01/05/19 12:21 Dose: 10 ml Sodium Chloride (Saline Flush) 2.5 ml FLUSH ASDIRECTED PRN PRN Reason: Keep Vein Open Last Admin: 01/05/19 12:21 Dose: 2.5 ml Labs: Laboratory Tests 01/05/19 01/05/19 01/05/19 Range/Units 12:05 12:05 12:05 WBC 18.83 H (4.0-11.0) K/uL RBC 3.44 L (4.30-5.90) M/uL Hgb 8.2 L (12.0-16.0) g/dL Hct 26.2 L (36.0-46.0) % MCV 76.2 L (80.0-98.0) fL MCH 23.8 L (27.0-32.0) pg MCHC 31.3 (31.0-37.0) g/dL RDW Std Deviation 55.5 (28.0-62.0) fl RDW Coeff of [place] 20 H (11.0-15.0) % Plt Count 619 H (150-400) K/uL MPV 8.50 (7.40-12.00) fL Neut % (Auto) 81.9 H (48.0-80.0) % Lymph % (Auto) 8.1 L (16.0-40.0) % [place] % (Auto) 8.9 (0.0-15.0) % Eos % (Auto) 1.0 (0.0-7.0) % Baso % (Auto) 0.1 (0.0-1.5) % Neut # (Auto) 15.4 H (1.4-5.7) K/uL Lymph # (Auto) 1.5 (0.6-2.4) K/uL [place] # (Auto) 1.7 H (0.0-0.8) K/uL Eos # (Auto) 0.2 (0.0-0.7) K/uL Baso # (Auto) 0.0 (0.0-0.1) K/uL Nucleated RBC % 0.0 /100WBC Nucleated RBCs # 0 K/uL INR 1.10 Lactate (0.20-2.00) mmol/L Sodium 131 L (136-145) mmol/L Potassium 4.0 (3.5-5.1) mmol/L Chloride 94 L (98-107) mmol/L Carbon Dioxide 26.4 (21.0-32.0) mmol/L BUN 5 L (7.0-18.0) mg/dL Creatinine 0.6 (0.6-1.0) mg/dL Est Cr Clr Drug Dosing 99.29 mL/min Estimated GFR (MDRD) > 60.0 ml/min Glucose 94 (74-106) mg/dL Calcium 8.7 (8.5-10.1) mg/dL Total Bilirubin 0.3 (0.2-1.0) mg/dL AST 96 H (15-37) IU/L ALT 13 L (14-63) IU/L Alkaline Phosphatase 307 H (46-116) U/L Total Protein 7.7 (6.4-8.2) g/dL Albumin 2.2 L (3.4-5.0) g/dL Globulin 5.5 H (2.6-4.0) g/dL Albumin/Globulin Ratio 0.4 L (0.9-1.6) Urine Color Urine Appearance Urine pH (5.0-8.0) Ur Specific [place] (1.001-1.035) Urine Protein (NEGATIVE) mg/dL Urine Glucose (UA) (NEGATIVE) mg/dL Urine Ketones (NEGATIVE) mg/dL Urine Occult Blood (NEGATIVE) Urine Nitrite (NEGATIVE) Urine Bilirubin (NEGATIVE) Urine Urobilinogen (<2.0) EU/dL Ur Leukocyte Esterase (NEGATIVE) Urine RBC (0-2/HPF) Urine WBC (0-5/HPF) Ur Epithelial Cells (NONE-FEW) Urine Bacteria (NEGATIVE) 01/05/19 01/05/19 Range/Units 12:05 13:15 WBC (4.0-11.0) K/uL RBC (4.30-5.90) M/uL Hgb (12.0-16.0) g/dL Hct (36.0-46.0) % MCV (80.0-98.0) fL MCH (27.0-32.0) pg MCHC (31.0-37.0) g/dL RDW Std Deviation (28.0-62.0) fl RDW Coeff of [place] (11.0-15.0) % Plt Count (150-400) K/uL MPV (7.40-12.00) fL Neut % (Auto) (48.0-80.0) % Lymph % (Auto) (16.0-40.0) % [place] % (Auto) (0.0-15.0) % Eos % (Auto) (0.0-7.0) % Baso % (Auto) (0.0-1.5) % Neut # (Auto) (1.4-5.7) K/uL Lymph # (Auto) (0.6-2.4) K/uL [place] # (Auto) (0.0-0.8) K/uL Eos # (Auto) (0.0-0.7) K/uL Baso # (Auto) (0.0-0.1) K/uL Nucleated RBC % /100WBC Nucleated RBCs # K/uL INR Lactate 2.2 H (0.20-2.00) mmol/L Sodium (136-145) mmol/L Potassium (3.5-5.1) mmol/L Chloride (98-107) mmol/L Carbon Dioxide (21.0-32.0) mmol/L BUN (7.0-18.0) mg/dL Creatinine (0.6-1.0) mg/dL Est Cr Clr Drug Dosing mL/min Estimated GFR (MDRD) ml/min Glucose (74-106) mg/dL Calcium (8.5-10.1) mg/dL Total Bilirubin (0.2-1.0) mg/dL AST (15-37) IU/L ALT (14-63) IU/L Alkaline Phosphatase (46-116) U/L Total Protein (6.4-8.2) g/dL Albumin (3.4-5.0) g/dL Globulin (2.6-4.0) g/dL Albumin/Globulin Ratio (0.9-1.6) Urine Color YELLOW Urine Appearance CLEAR Urine pH 7.0 (5.0-8.0) Ur Specific [place] 1.010 (1.001-1.035) Urine Protein NEGATIVE (NEGATIVE) mg/dL Urine Glucose (UA) NEGATIVE (NEGATIVE) mg/dL Urine Ketones NEGATIVE (NEGATIVE) mg/dL Urine Occult Blood NEGATIVE (NEGATIVE) Urine Nitrite NEGATIVE (NEGATIVE) Urine Bilirubin NEGATIVE (NEGATIVE) Urine Urobilinogen 1.0 (<2.0) EU/dL Ur Leukocyte Esterase SMALL H (NEGATIVE) Urine RBC 0-2 (0-2/HPF) Urine WBC 3-5 (0-5/HPF) Ur Epithelial Cells RARE (NONE-FEW) Urine Bacteria RARE (NEGATIVE) Meds: Medications Generic Name Dose Route Start Last Admin Trade Name Freq PRN Reason Stop Dose Admin Sodium Chloride 10 ml 01/05/19 11:59 01/05/19 12:21 Saline Flush FLUSH 10 ml ASDIRECTED PRN Administration Keep Vein Open Sodium Chloride 2.5 ml 01/05/19 11:59 01/05/19 12:21 Saline Flush FLUSH 2.5 ml ASDIRECTED PRN Administration Keep Vein Open Discontinued Medications Generic Name Dose Route Start Last Admin Trade Name Freq PRN Reason Stop Dose Admin Iopamidol 70 ml 01/05/19 13:11 01/05/19 13:12 Isovue Multipack-370 (76%) IVPUSH 01/05/19 13:12 70 ml ONETIME STA Administration Lorazepam 1 mg 01/05/19 12:00 01/05/19 12:18 Ativan IVPUSH 01/05/19 12:01 1 mg ONETIME ONE Administration Departure - Departure Time of Disposition: 14:09 Disposition: Refer to Observation Condition: Fair Clinical Impression: Pneumonia Qualifiers: Pneumonia type: due to unspecified organism Laterality: left Lung location: lower lobe of lung Qualified Code(s): J18.1 - Lobar pneumonia, unspecified organism Anemia Qualifiers: Anemia type: unspecified type Qualified Code(s): D64.9 - Anemia, unspecified - Discharge Information Referrals: PCP,Unobtain [Primary Care Provider] - Forms: ED Department Discharge - My Orders Last 24 Hours: My Active Orders 01/05/19 11:59 Oxygen Therapy, ED [RC] ASDIRECTED Pulse Oximetry [RC] ASDIRECTED Sodium Chloride 0.9% [Saline Flush] 10 ml FLUSH ASDIRECTED PRN Sodium Chloride 0.9% [Saline Flush] 2.5 ml FLUSH ASDIRECTED PRN Saline Lock Insert [OM.PC] Stat 01/05/19 13:15 CULTURE URINE [RM] Stat 01/05/19 13:55 CULTURE BLOOD [BC] Stat CULTURE BLOOD [BC] Stat Blood Culture x2 Reflex Set [OM.PC] Stat 01/05/19 14:06 Patient Status [ADT] Stat Levofloxacin/Dextrose 5%-Water [Levaquin in D5W 750 MG/150 ML] 750 mg Premix Bag 1 bag IV ONETIME - Assessment/Plan Last 24 Hours: My Active Orders 01/05/19 11:59 Oxygen Therapy, ED [RC] ASDIRECTED Pulse Oximetry [RC] ASDIRECTED Sodium Chloride 0.9% [Saline Flush] 10 ml FLUSH ASDIRECTED PRN Sodium Chloride 0.9% [Saline Flush] 2.5 ml FLUSH ASDIRECTED PRN Saline Lock Insert [OM.PC] Stat 01/05/19 13:15 CULTURE URINE [RM] Stat 01/05/19 13:55 CULTURE BLOOD [BC] Stat CULTURE BLOOD [BC] Stat Blood Culture x2 Reflex Set [OM.PC] Stat 01/05/19 14:06 Patient Status [ADT] Stat Levofloxacin/Dextrose 5%-Water [Levaquin in D5W 750 MG/150 ML] 750 mg Premix Bag 1 bag IV ONETIME
[2019-01-05 12:41] LABS: BLOOD UREA NITROGEN,BUN 5 mg/dL (7.0-18.0); CARBON DIOXIDE,CO2 26.4 mmol/L (21.0-32.0); CHLORIDE,CL 94 mmol/L (98-107); GLUCOSE RANDOM 94 mg/dL (74-106); SODIUM,NA 131 mmol/L (136-145)
[2019-01-05] MEDS ORDERED: Iopamidol 755 MG/ML 500 ML Multipack Bottle IVPUSH STA (13:11)
--- NOTE | 2019-01-05 13:20 | CR ---
INDICATION: Pain, shortness of breath. Colon cancer with known metastasis TECHNIQUE: Chest 1 view. COMPARISON: 07/12/2018 FINDINGS: Cardiovascular and mediastinum: Heart size and vasculature are normal in caliber and appearance. Mediastinum is within normal limits. Right-sided [id number] tip in the proximal SVC. Lungs and pleural space: Elevation right hemidiaphragm. Lungs are clear. No sign of infiltrate or mass. No sign of pleural effusion. No pneumothorax. Bones and soft tissues: No significant findings. IMPRESSION: Unremarkable chest. Dictated by Willie Kearney MD @ Jan 05 2019 1:19PM Signed by Dr. Willie Kearney @ Jan 05 2019 1:19PM
--- NOTE | 2019-01-05 13:48 | CT ---
HISTORY: Increasing abdominal pain. Colon cancer with metastatic disease. COMPARISON: 12/07/2018. TECHNIQUE: Axial images were obtained through the abdomen and pelvis following 70 cc of Isovue-370 intravenous contrast. FINDINGS: There are nodules in the lower lungs. Left lower lobe nodule today measures 7 mm previously 5 mm. Ground-glass opacities have developed in the left lower lobe may represent pneumonia including aspiration. There are multiple masses in the right lobe of the liver similar to the previous study. The spleen is normal in size. The pancreas, gallbladder, and adrenal glands and kidneys are within normal. There is a carcinomatosis with multiple soft tissue nodules in the abdomen and pelvis. For example in the left pelvis image 110 measures 1.8 cm has developed since the previous study. No evidence for bowel obstruction. There is a large amount of stool present. Bowel wall thickening involving the cecum which may represent primary tumor. Degenerative changes in the lower lumbar spine. No definite bony metastasis. IMPRESSION: 1. Pulmonary nodules, slightly increased in size consistent with metastatic disease. 2. Indeterminate ground-glass opacities in left lower lobe, infectious/inflammatory versus metastatic. 3. Extensive metastatic disease involving the right lobe of the liver appears similar to the prior study. 4. Carcinomatosis within the abdomen pelvis has progressed. No evidence for bowel obstruction. Large amount of stool present. 5. Wall thickening involving the cecum may represent primary tumor. Please note that all CT scans at this facility use dose modulation, iterative reconstruction, and/or weight-based dosing when appropriate to reduce radiation dose to as low as reasonably achievable. Dictated by Felicia Ortiz MD @ Jan 05 2019 1:35PM Signed by Dr. Felicia Ortiz @ Jan 05 2019 1:46PM
[2019-01-05] MEDS ORDERED: Levofloxacin/Dextrose 5%-Water 750 MG in Premix Bag 1 BAG IV ONE (14:06)
[2019-01-05] MEDS ORDERED: Sodium Chloride 0.9% 1,000 ML IV SCH (14:15)
[2019-01-05] MEDS ORDERED: Polyethylene Glycol 3350 Powder 17 GM Packet PO PRN (15:04)
[2019-01-05] MEDS ORDERED: Albuterol/Ipratropium 3.0-0.5 MG/3 ML Neb Soln NEB PRN (15:04)
--- NOTE | 2019-01-05 15:58 | PCM.HP.2 ---
H&P History of Present Illness - General Date of Service: 01/05/19 Admit Problem/Dx: Admission Diagnosis/Problem Admission Diagnosis/Problem Pneumonia Source of Information: Patient History Limitations: Reports: No Limitations - History of Present Illness Initial Comments - Free Text/Narative: The patient is a 53-year-old female with PMH of stage Iv Colon Ca who follows here in our oncology clinic who presents via EMS complaining of increasing abdominal pain over the last 1 week despite taking her home medication regimen. Patient also states that she has been constipated and while trying to manually remover her stool with finger, she had an episode of bleeding. 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 The patient has undergone chemotherapy here for last 1 year . Her last chemo was 1 month back. Patient states that her chemo was stopped as it was working and currently is being evaluated by our oncologist to try a different chemotherapy Patient states that she underwent liver biopsy yesterday at a clinic in [facility] to check if new chemo will work. Patient states that she has been experiencing fevers for last few days along with increasing shortness of breath and some cough. Patient has recently quit smoking as well. Patient denied chest pain, active vomiting, palpitations, dizziness, fall, trauma and urinary issues. Patient had elevated WBC count and Abdominal CT was concerning for an Left lung infiltrate. Patient is being admitted for management of HCAP. Last Vital Signs in ER Temp 35.6 C 01/05/19 11:39 Pulse 99 01/05/19 13:22 Resp 16 01/05/19 13:22 BP 122/83 01/05/19 13:22 Pulse Ox 94 L 01/05/19 13:22 Onset of Symptoms: Reports: Gradual Duration of Symptoms: Reports: Week(s): Location: Reports: Abdomen Quality: Reports: Ache, Throbbing Severity: Moderate Abdominal Pain Pain Score (Numeric/FACES): 7 - Related Data Allergies/Adverse Reactions: Allergies Allergy/AdvReac Type Severity Reaction Status Date / Time Penicillins Allergy Hives Verified 01/05/19 16:04 phenobarbital Allergy Other Verified 01/05/19 16:04 phenytoin [From Dilantin] Allergy Hives Verified 01/05/19 16:04 Home Medications: Home Meds Ondansetron [Zofran] 8 mg PO Q8H PRN 07/07/18 [History] Prochlorperazine Maleate [Compazine] 10 mg PO TID 07/07/18 [History] amLODIPine [Norvasc] 5 mg PO DAILY 07/07/18 [History] oxyCODONE 10 mg PO Q6H PRN 07/07/18 [History] Albuterol Sulfate [Proair Hfa] 2 puff IH Q4H PRN 01/05/19 [History] fentaNYL [Duragesic] 1 patch TD Q72H 01/05/19 [History] Past Medical History HEENT History: Reports: None Cardiovascular History: Reports: Hypertension Respiratory History: Reports: COPD Gastrointestinal History: Reports: None Genitourinary History: Reports: None LABORATORY TESTER History: Reports: None Musculoskeletal History: Reports: None Neurological History: Reports: Seizure Psychiatric History: Reports: None Endocrine/Metabolic History: Reports: None Hematologic History: Reports: None Immunologic History: Reports: None Oncologic (Cancer) History: Reports: Colon, Liver Dermatologic History: Reports: None - Infectious Disease History Infectious Disease History: Reports: None Other Infectious Disease History: reports taking interfuron and is cleared - Past Surgical History Head Surgeries/Procedures: Reports: None HEENT Surgical History: Reports: None Cardiovascular Surgical History: Reports: None Respiratory Surgical History: Reports: None GI Surgical History: Reports: None Female Surgical History: Reports: None Endocrine Surgical History: Reports: None Neurological Surgical History: Reports: None Musculoskeletal Surgical History: Reports: None Oncologic Surgical History: Reports: None Dermatological Surgical History: Reports: None Social & Family History - Family History Family Medical History: Noncontributory - Tobacco Use Smoking Status *Q: Former Smoker Used Tobacco, but Quit: Yes Month/Year Tobacco Last Used: 2019 - Caffeine Use Caffeine Use: Reports: None - Recreational Drug Use Recreational Drug Use: No H&P Review of Systems - Review of Systems: Review Of Systems: See Below General: Reports: Fever, Chills, Malaise, Weakness, Fatigue HEENT: Reports: Rhinitis. Denies: Dysphasia, Ear Pain, Headaches, Hearing Changes Pulmonary: Reports: Shortness of Breath, Pleuritic Chest Pain, Cough, Sputum. Denies: Wheezing Cardiovascular: Reports: Chest Pain, Dyspnea on Exertion, Orthopnea. Denies: Palpitations, Syncope Gastrointestinal: Reports: Abdominal Pain, Bloody Stool, Constipation, Decreased Appetite Genitourinary: Denies: Frequency, Burning Musculoskeletal: Denies: Neck Pain, Shoulder Pain Skin: Denies: Cyanosis, Jaundice Psychiatric: Denies: Confusion, Depression Neurological: Denies: Confusion, Dizziness, Pre-Existing Deficit Exam - Exam Exam: See Below - Vital Signs Vital Signs: Last Vital Signs Temp 35.6 C 01/05/19 11:39 Pulse 102 H 01/05/19 15:11 Resp 16 01/05/19 15:11 BP 128/83 01/05/19 15:11 Pulse Ox 99 01/05/19 15:11 Weight: 125 lb - Exam Quality Assessment: Supplemental Oxygen General: Alert, Oriented, Cooperative, Moderate Distress HEENT: Conjunctiva Clear, Rhinitis. No: Scleral Icterus Neck: Supple, Trachea Midline Lungs: Clear to Auscultation, Decreased Breath Sounds Cardiovascular: Regular Rate, Regular Rhythm GI/Abdominal Exam: Distended, Tender, Hepatomegaly Extremities: Normal Inspection, Normal Range of Motion Peripheral Pulses: 3+: Dorsalis Pedis (L), Dorsalis Pedis (R) Skin: Warm, Dry Neuro Extensive - Mental Status: Alert, Oriented x3 - Patient Data Lab Results Last 24 hrs: Laboratory Results - last 24 hr 01/05/19 01/05/19 01/05/19 Range/Units 12:05 12:05 12:05 WBC 18.83 H (4.0-11.0) K/uL RBC 3.44 L (4.30-5.90) M/uL Hgb 8.2 L (12.0-16.0) g/dL Hct 26.2 L (36.0-46.0) % MCV 76.2 L (80.0-98.0) fL MCH 23.8 L (27.0-32.0) pg MCHC 31.3 (31.0-37.0) g/dL RDW Std Deviation 55.5 (28.0-62.0) fl RDW Coeff of Clemente 20 H (11.0-15.0) % Plt Count 619 H (150-400) K/uL MPV 8.50 (7.40-12.00) fL Neut % (Auto) 81.9 H (48.0-80.0) % Lymph % (Auto) 8.1 L (16.0-40.0) % [place] % (Auto) 8.9 (0.0-15.0) % Eos % (Auto) 1.0 (0.0-7.0) % Baso % (Auto) 0.1 (0.0-1.5) % Neut # (Auto) 15.4 H (1.4-5.7) K/uL Lymph # (Auto) 1.5 (0.6-2.4) K/uL [place] # (Auto) 1.7 H (0.0-0.8) K/uL Eos # (Auto) 0.2 (0.0-0.7) K/uL Baso # (Auto) 0.0 (0.0-0.1) K/uL Nucleated RBC % 0.0 /100WBC Nucleated RBCs # 0 K/uL INR 1.10 Lactate (0.20-2.00) mmol/L Sodium 131 L (136-145) mmol/L Potassium 4.0 (3.5-5.1) mmol/L Chloride 94 L (98-107) mmol/L Carbon Dioxide 26.4 (21.0-32.0) mmol/L BUN 5 L (7.0-18.0) mg/dL Creatinine 0.6 (0.6-1.0) mg/dL Est Cr Clr Drug Dosing 99.29 mL/min Estimated GFR (MDRD) > 60.0 ml/min Glucose 94 (74-106) mg/dL Calcium 8.7 (8.5-10.1) mg/dL Total Bilirubin 0.3 (0.2-1.0) mg/dL AST 96 H (15-37) IU/L ALT 13 L (14-63) IU/L Alkaline Phosphatase 307 H (46-116) U/L Total Protein 7.7 (6.4-8.2) g/dL Albumin 2.2 L (3.4-5.0) g/dL Globulin 5.5 H (2.6-4.0) g/dL Albumin/Globulin Ratio 0.4 L (0.9-1.6) Urine Color Urine Appearance Urine pH (5.0-8.0) Ur Specific Richards (1.001-1.035) Urine Protein (NEGATIVE) mg/dL Urine Glucose (UA) (NEGATIVE) mg/dL Urine Ketones (NEGATIVE) mg/dL Urine Occult Blood (NEGATIVE) Urine Nitrite (NEGATIVE) Urine Bilirubin (NEGATIVE) Urine Urobilinogen (<2.0) EU/dL Ur Leukocyte Esterase (NEGATIVE) Urine RBC (0-2/HPF) Urine WBC (0-5/HPF) Ur Epithelial Cells (NONE-FEW) Urine Bacteria (NEGATIVE) 01/05/19 01/05/19 Range/Units 12:05 13:15 WBC (4.0-11.0) K/uL RBC (4.30-5.90) M/uL Hgb (12.0-16.0) g/dL Hct (36.0-46.0) % MCV (80.0-98.0) fL MCH (27.0-32.0) pg MCHC (31.0-37.0) g/dL RDW Std Deviation (28.0-62.0) fl RDW Coeff of Clement[place] (11.0-15.0) % Plt Count (150-400) K/uL MPV (7.40-12.00) fL Neut % (Auto) (48.0-80.0) % Lymph % (Auto) (16.0-40.0) % [place] % (Auto) (0.0-15.0) % Eos % (Auto) (0.0-7.0) % Baso % (Auto) (0.0-1.5) % Neut # (Auto) (1.4-5.7) K/uL Lymph # (Auto) (0.6-2.4) K/uL [place] # (Auto) (0.0-0.8) K/uL Eos # (Auto) (0.0-0.7) K/uL Baso # (Auto) (0.0-0.1) K/uL Nucleated RBC % /100WBC Nucleated RBCs # K/uL INR Lactate 2.2 H (0.20-2.00) mmol/L Sodium (136-145) mmol/L Potassium (3.5-5.1) mmol/L Chloride (98-107) mmol/L Carbon Dioxide (21.0-32.0) mmol/L BUN (7.0-18.0) mg/dL Creatinine (0.6-1.0) mg/dL Est Cr Clr Drug Dosing mL/min Estimated GFR (MDRD) ml/min Glucose (74-106) mg/dL Calcium (8.5-10.1) mg/dL Total Bilirubin (0.2-1.0) mg/dL AST (15-37) IU/L ALT (14-63) IU/L Alkaline Phosphatase (46-116) U/L Total Protein (6.4-8.2) g/dL Albumin (3.4-5.0) g/dL Globulin (2.6-4.0) g/dL Albumin/Globulin Ratio (0.9-1.6) Urine Color YELLOW Urine Appearance CLEAR Urine pH 7.0 (5.0-8.0) Ur Specific Richards 1.010 (1.001-1.035) Urine Protein NEGATIVE (NEGATIVE) mg/dL Urine Glucose (UA) NEGATIVE (NEGATIVE) mg/dL Urine Ketones NEGATIVE (NEGATIVE) mg/dL Urine Occult Blood NEGATIVE (NEGATIVE) Urine Nitrite NEGATIVE (NEGATIVE) Urine Bilirubin NEGATIVE (NEGATIVE) Urine Urobilinogen 1.0 (<2.0) EU/dL Ur Leukocyte Esterase SMALL H (NEGATIVE) Urine RBC 0-2 (0-2/HPF) Urine WBC 3-5 (0-5/HPF) Ur Epithelial Cells RARE (NONE-FEW) Urine Bacteria RARE (NEGATIVE) Result Diagrams: 01/05/19 12:05 01/05/19 12:05 Fernando Results Last 24 hrs: Microbiology 01/05/19 14:50 Anaerobic Blood Culture - Final Blood - Venous *Q Meaningful Use (ADM) - VTE Risk Assess *Q Each Risk Factor Represents 1 Point: Age 41 - 59 years Total Score 1 Point Risk Factors: 1 Each Risk Factor Represents 2 Points: Malignancy (present or previous) Total Score 2 Point Risk Factors: 2 - Problem List (1) Pneumonia SNOMED Code(s): 301296588 ICD Code: J18.9 - PNEUMONIA, UNSPECIFIED ORGANISM Status: Acute Current Visit: Yes Qualifiers: Pneumonia type: due to unspecified organism Laterality: left Lung location: lower lobe of lung Qualified Code(s): J18.1 - Lobar pneumonia, unspecified organism (2) Anemia SNOMED Code(s): 968865579 ICD Code: D64.9 - ANEMIA, UNSPECIFIED Status: Acute Current Visit: Yes Qualifiers: Anemia type: unspecified type Qualified Code(s): D64.9 - Anemia, unspecified (3) Abdominal pain SNOMED Code(s): 84856951 ICD Code: R10.9 - UNSPECIFIED ABDOMINAL PAIN Status: Acute Current Visit : No Qualifiers: Abdominal location: right upper quadrant Qualified Code(s): R10.11 - Right upper quadrant pain (4) Metastatic cancer SNOMED Code(s): 632251836 ICD Code: C79.9 - SECONDARY MALIGNANT NEOPLASM OF UNSPECIFIED SITE Status: Acute Current Visit: No (5) Severe sepsis SNOMED Code(s): 60191779 ICD Code: A41.9 - SEPSIS, UNSPECIFIED ORGANISM; R65.20 - SEVERE SEPSIS WITHOUT SEPTIC SHOCK Status: Acute Current Visit: Yes Problem List Initiated/Reviewed/Updated: Yes Orders Last 24hrs: Active Orders 24 hr Category Date Time Status Patient Status [ADT] Stat ADT 01/05/19 14:06 Active Bedrest Bathroom Privileges [RC] ASDIRECTED Care 01/05/19 15:04 Active Oxygen Therapy [RC] PRN Care 01/05/19 15:04 Active Oxygen Therapy, ED [RC] ASDIRECTED Care 01/05/19 11:59 Active Pulse Oximetry [RC] ASDIRECTED Care 01/05/19 11:59 Active RT Aerosol Therapy [RC] ASDIRECTED Care 01/05/19 15:09 Active VTE/DVT Education [RC] PER UNIT ROUTINE Care 01/05/19 15:04 Active Vital Signs [RC] Q4H Care 01/05/19 15:04 Active Clear Liquid Diet [DIET] Diet 01/05/19 Dinner Active CULTURE BLOOD [BC] Stat Lab 01/05/19 14:50 Results CULTURE BLOOD [BC] Stat Lab 01/05/19 14:55 Received CULTURE SPUTUM + SMEAR [RM] Stat Lab 01/05/19 15:04 Ordered CULTURE URINE [RM] Stat Lab 01/05/19 13:15 Received Albuterol/Ipratropium [DuoNeb 3.0-0.5 MG/3 ML] Med 01/05/19 15:04 Active 3 ml NEB Q4HRRT PRN Docusate Sodium [Colace] Med 01/05/19 15:04 Active 100 mg PO BID PRN Levofloxacin/Dextrose 5%-Water [Levaquin in D5W 750 MG/ Med 01/06/19 15:15 Active 150 ML] 750 mg Premix Bag 1 bag IV Q24H Morphine Med 01/05/19 15:04 Active 1 mg IVPUSH Q6H PRN Pantoprazole [ProTONIX IV] 40 mg Med 01/05/19 21:00 Active Sodium Chloride 0.9% [Normal Saline] 10 ml IV Q12H Polyethylene Glycol 3350 [MiraLAX] Med 01/05/19 15:04 Active 17 gm PO DAILY PRN Sodium Chloride 0.9% [Normal Saline] 1,000 ml Med 01/05/19 14:15 Active IV ASDIRECTED Sodium Chloride 0.9% [Normal Saline] 1,000 ml Med 01/05/19 15:30 Active IV Q8H Sodium Chloride 0.9% [Saline Flush] Med 01/05/19 11:59 Active 10 ml FLUSH ASDIRECTED PRN Sodium Chloride 0.9% [Saline Flush] Med 01/05/19 11:59 Active 2.5 ml FLUSH ASDIRECTED PRN Blood Culture x2 Reflex Set [OM.PC] Stat Oth 01/05/19 13:55 Ordered Saline Lock Insert [OM.PC] Stat Oth 01/05/19 11:59 Ordered Resuscitation Status Routine Resus Stat 01/05/19 15:04 Ordered Medication Orders Albuterol/Ipratropium (Duoneb 3.0-0.5 Mg/3 Ml) 3 ml NEB Q4HRRT PRN PRN Reason: Shortness Of Breath/wheezing Docusate Sodium (Colace) 100 mg PO BID PRN PRN Reason: Constipation Sodium Chloride (Normal Saline) 1,000 mls @ 100 mls/hr IV ASDIRECTED KEVIN Last Admin: 01/05/19 15:00 Dose: 100 mls/hr Levofloxacin/Dextrose 750 mg/ (Premix) 150 mls @ 100 mls/hr IV Q24H KEVIN Pantoprazole Sodium 40 mg/ (Sodium Chloride) 10 mls @ 200 mls/hr IV Q12H KEVIN Sodium Chloride (Normal Saline) 1,000 mls @ 125 mls/hr IV Q8H KEVIN Morphine Sulfate (Morphine) 1 mg IVPUSH Q6H PRN PRN Reason: Pain (severe 7-10) Stop: 01/06/19 15:07 Polyethylene Glycol (Miralax) 17 gm PO DAILY PRN PRN Reason: Constipation Sodium Chloride (Saline Flush) 10 ml FLUSH ASDIRECTED PRN PRN Reason: Keep Vein Open Last Admin: 01/05/19 12:21 Dose: 10 ml Sodium Chloride (Saline Flush) 2.5 ml FLUSH ASDIRECTED PRN PRN Reason: Keep Vein Open Last Admin: 01/05/19 12:21 Dose: 2.5 ml Assessment/Plan Comment:: Sepsis: Patient comes in with c/o abdominal pain, fever, chills, cough CT abdomen showed progression of mets, and an infiltrate in her LLL Patient received IV Levaquin in ER Patient is in severe sepsis given high WBC, tachycardia, and elevated lactate Will start IVF, needs 1600 per sepsis protocol, will give 1000 ml and reassess volume status and give additional 600 ml Switch to board spectrum vancomycin and Zosyn given immunocompromised status f/u Vancomycin trough start Morphine for pain Monitor renal function closely cont monitor vitals closely Anemia/Rectal bleed: No active GI bleed, hold off on transfusion Will check Iron studies IV PPI constipation: start bowel regimen
[2019-01-05] MEDS: Morphine 10 MG/ML Syringe IVPUSH PRN ×2 (16:36→22:32)
[2019-01-05] MEDS: Sodium Chloride 0.9% 1,000 ML IV SCH (16:38)
[2019-01-05] MEDS ORDERED: Sodium Chloride 0.9% 1,000 ML IV ONE (18:30)
[2019-01-05] MEDS ORDERED: Piperacillin/Tazobactam 3.375 GM in Sodium Chloride 0.9% 50 ML IV SCH (18:45)
[2019-01-05] MEDS ORDERED: Vancomycin 1 GM AdvVial ONE (19:06)
[2019-01-05] MEDS ORDERED: Sodium Chloride 0.9% 0 ML ONE (19:07)
[2019-01-05] MEDS ORDERED: Sodium Chloride 0.9% 250 ML ONE (19:17)
[2019-01-05] MEDS: Pantoprazole 40 MG in Sodium Chloride 0.9% 10 ML IV SCH (20:16)
[2019-01-05] MEDS ORDERED: Pantoprazole 40 MG Vial IV SCH (21:00)
[2019-01-06] MEDS ORDERED: LORazepam 0.5 MG Tab PO PRN
[2019-01-06] MEDS: Sodium Chloride 0.9% 1,000 ML IV SCH ×2 (01:22→08:31)
[2019-01-06] MEDS: Morphine 10 MG/ML Syringe IVPUSH PRN ×2 (04:33→10:19)
[2019-01-06] MEDS: Docusate Sodium 100 MG Cap PO PRN (04:35)
[2019-01-06] MEDS ORDERED: Simethicone 80 MG Tab.Chew PO ONE (05:40)
[2019-01-06 06:34] LABS: BLOOD UREA NITROGEN,BUN 4 mg/dL (7.0-18.0); CHLORIDE,CL 97 mmol/L (98-107); GLUCOSE RANDOM 93 mg/dL (74-106); POTASSIUM,K 3.4 mmol/L (3.5-5.1); SODIUM,NA 133 mmol/L (136-145)
[2019-01-06] MEDS ORDERED: Sodium Chloride 0.9% 250 ML ONE (08:20)
[2019-01-06] MEDS ORDERED: Vancomycin 1 GM AdvVial ONE (08:20)
[2019-01-06] MEDS: Pantoprazole 40 MG in Sodium Chloride 0.9% 10 ML IV SCH ×2 (10:14→21:40)
--- NOTE | 2019-01-06 11:25 | PCM.PN ---
- General Info Date of Service: 01/06/19 Admission Dx/Problem (Free Text): Admission Diagnosis/Problem Admission Diagnosis/Problem Pneumonia Subjective Update: Patient seen and examined at bedside. Lethargic, dozing off while speaking to me. States she is in a lot of pain although was sleeping comfortably when i saw her. Goals of care were discussed again, patient states will think about comfort measures. - Review of Systems General: Reports: Weakness, Fatigue, Malaise HEENT: Denies: Sinus Congestion, Sore Throat Pulmonary: Reports: Shortness of Breath, Cough Cardiovascular: Denies: Chest Pain, Palpitations, Dyspnea on Exertion Gastrointestinal: Reports: Abdominal Pain, Constipation, Decreased Appetite Musculoskeletal: Denies: Neck Pain, Shoulder Pain - Patient Data Vitals - Most Recent: Last Vital Signs Temp 36.8 C 01/06/19 07:30 Pulse 118 H 01/06/19 07:30 Resp 24 H 01/06/19 07:30 BP 149/102 H 01/06/19 07:30 Pulse Ox 93 L 01/06/19 07:30 Weight - Most Recent: 56.699 kg I&O - Last 24 Hours: Intake & Output 01/05/19 01/06/19 01/06/19 22:59 06:59 14:59 Intake Total 470 2000 310 Output Total 100 3400 Balance 370 -1400 310 Lab Results Last 24 Hours: Laboratory Results - last 24 hr 01/05/19 01/05/19 01/05/19 Range/Units 12:05 12:05 12:05 WBC 18.83 H (4.0-11.0) K/uL RBC 3.44 L (4.30-5.90) M/uL Hgb 8.2 L (12.0-16.0) g/dL Hct 26.2 L (36.0-46.0) % MCV 76.2 L (80.0-98.0) fL MCH 23.8 L (27.0-32.0) pg MCHC 31.3 (31.0-37.0) g/dL RDW Std Deviation 55.5 (28.0-62.0) fl RDW Coeff of [place] 20 H (11.0-15.0) % Plt Count 619 H (150-400) K/uL MPV 8.50 (7.40-12.00) fL Neut % (Auto) 81.9 H (48.0-80.0) % Lymph % (Auto) 8.1 L (16.0-40.0) % [place] % (Auto) 8.9 (0.0-15.0) % Eos % (Auto) 1.0 (0.0-7.0) % Baso % (Auto) 0.1 (0.0-1.5) % Neut # (Auto) 15.4 H (1.4-5.7) K/uL Lymph # (Auto) 1.5 (0.6-2.4) K/uL [place] # (Auto) 1.7 H (0.0-0.8) K/uL Eos # (Auto) 0.2 (0.0-0.7) K/uL Baso # (Auto) 0.0 (0.0-0.1) K/uL Nucleated RBC % 0.0 /100WBC Nucleated RBCs # 0 K/uL INR 1.10 Lactate (0.20-2.00) mmol/L Sodium 131 L (136-145) mmol/L Potassium 4.0 (3.5-5.1) mmol/L Chloride 94 L (98-107) mmol/L Carbon Dioxide 26.4 (21.0-32.0) mmol/L BUN 5 L (7.0-18.0) mg/dL Creatinine 0.6 (0.6-1.0) mg/dL Est Cr Clr Drug Dosing 99.29 mL/min Estimated GFR (MDRD) > 60.0 ml/min Glucose 94 (74-106) mg/dL Calcium 8.7 (8.5-10.1) mg/dL Phosphorus (2.6-4.7) mg/dL Magnesium (1.8-2.4) mg/dL Iron (50-175) ug/dL TIBC (250-450) ug/dL % Saturation (20-55) % Ferritin (8-252) ng/mL Total Bilirubin 0.3 (0.2-1.0) mg/dL AST 96 H (15-37) IU/L ALT 13 L (14-63) IU/L Alkaline Phosphatase 307 H (46-116) U/L Total Protein 7.7 (6.4-8.2) g/dL Albumin 2.2 L (3.4-5.0) g/dL Globulin 5.5 H (2.6-4.0) g/dL Albumin/Globulin Ratio 0.4 L (0.9-1.6) Urine Color Urine Appearance Urine pH (5.0-8.0) Ur Specific [place] (1.001-1.035) Urine Protein (NEGATIVE) mg/dL Urine Glucose (UA) (NEGATIVE) mg/dL Urine Ketones (NEGATIVE) mg/dL Urine Occult Blood (NEGATIVE) Urine Nitrite (NEGATIVE) Urine Bilirubin (NEGATIVE) Urine Urobilinogen (<2.0) EU/dL Ur Leukocyte Esterase (NEGATIVE) Urine RBC (0-2/HPF) Urine WBC (0-5/HPF) Ur Epithelial Cells (NONE-FEW) Urine Bacteria (NEGATIVE) Random Vancomycin ug/mL Blood Type Antibody Screen 01/05/19 01/05/19 01/05/19 Range/Units 12:05 13:15 17:50 WBC (4.0-11.0) K/uL RBC (4.30-5.90) M/uL Hgb (12.0-16.0) g/dL Hct (36.0-46.0) % MCV (80.0-98.0) fL MCH (27.0-32.0) pg MCHC (31.0-37.0) g/dL RDW Std Deviation (28.0-62.0) fl RDW Coeff of [place] (11.0-15.0) % Plt Count (150-400) K/uL MPV (7.40-12.00) fL Neut % (Auto) (48.0-80.0) % Lymph % (Auto) (16.0-40.0) % [place] % (Auto) (0.0-15.0) % Eos % (Auto) (0.0-7.0) % Baso % (Auto) (0.0-1.5) % Neut # (Auto) (1.4-5.7) K/uL Lymph # (Auto) (0.6-2.4) K/uL [place] # (Auto) (0.0-0.8) K/uL Eos # (Auto) (0.0-0.7) K/uL Baso # (Auto) (0.0-0.1) K/uL Nucleated RBC % /100WBC Nucleated RBCs # K/uL INR Lactate 2.2 H 3.2 H (0.20-2.00) mmol/L Sodium (136-145) mmol/L Potassium (3.5-5.1) mmol/L Chloride (98-107) mmol/L Carbon Dioxide (21.0-32.0) mmol/L BUN (7.0-18.0) mg/dL Creatinine (0.6-1.0) mg/dL Est Cr Clr Drug Dosing mL/min Estimated GFR (MDRD) ml/min Glucose (74-106) mg/dL Calcium (8.5-10.1) mg/dL Phosphorus (2.6-4.7) mg/dL Magnesium (1.8-2.4) mg/dL Iron (50-175) ug/dL TIBC (250-450) ug/dL % Saturation (20-55) % Ferritin (8-252) ng/mL Total Bilirubin (0.2-1.0) mg/dL AST (15-37) IU/L ALT (14-63) IU/L Alkaline Phosphatase (46-116) U/L Total Protein (6.4-8.2) g/dL Albumin (3.4-5.0) g/dL Globulin (2.6-4.0) g/dL Albumin/Globulin Ratio (0.9-1.6) Urine Color YELLOW Urine Appearance CLEAR Urine pH 7.0 (5.0-8.0) Ur Specific [place] 1.010 (1.001-1.035) Urine Protein NEGATIVE (NEGATIVE) mg/dL Urine Glucose (UA) NEGATIVE (NEGATIVE) mg/dL Urine Ketones NEGATIVE (NEGATIVE) mg/dL Urine Occult Blood NEGATIVE (NEGATIVE) Urine Nitrite NEGATIVE (NEGATIVE) Urine Bilirubin NEGATIVE (NEGATIVE) Urine Urobilinogen 1.0 (<2.0) EU/dL Ur Leukocyte Esterase SMALL H (NEGATIVE) Urine RBC 0-2 (0-2/HPF) Urine WBC 3-5 (0-5/HPF) Ur Epithelial Cells RARE (NONE-FEW) Urine Bacteria RARE (NEGATIVE) Random Vancomycin ug/mL Blood Type Antibody Screen 01/05/19 01/06/19 01/06/19 Range/Units 19:45 00:23 05:50 WBC (4.0-11.0) K/uL RBC (4.30-5.90) M/uL Hgb (12.0-16.0) g/dL Hct (36.0-46.0) % MCV (80.0-98.0) fL MCH (27.0-32.0) pg MCHC (31.0-37.0) g/dL RDW Std Deviation (28.0-62.0) fl RDW Coeff of [place] (11.0-15.0) % Plt Count (150-400) K/uL MPV (7.40-12.00) fL Neut % (Auto) (48.0-80.0) % Lymph % (Auto) (16.0-40.0) % [place] % (Auto) (0.0-15.0) % Eos % (Auto) (0.0-7.0) % Baso % (Auto) (0.0-1.5) % Neut # (Auto) (1.4-5.7) K/uL Lymph # (Auto) (0.6-2.4) K/uL [place] # (Auto) (0.0-0.8) K/uL Eos # (Auto) (0.0-0.7) K/uL Baso # (Auto) (0.0-0.1) K/uL Nucleated RBC % /100WBC Nucleated RBCs # K/uL INR Lactate 1.5 (0.20-2.00) mmol/L Sodium 133 L (136-145) mmol/L Potassium 3.4 L (3.5-5.1) mmol/L Chloride 97 L (98-107) mmol/L Carbon Dioxide 25.0 (21.0-32.0) mmol/L BUN 4 L (7.0-18.0) mg/dL Creatinine 0.5 L (0.6-1.0) mg/dL Est Cr Clr Drug Dosing 119.15 mL/min Estimated GFR (MDRD) > 60.0 ml/min Glucose 93 (74-106) mg/dL Calcium 8.7 (8.5-10.1) mg/dL Phosphorus 2.5 L (2.6-4.7) mg/dL Magnesium 1.8 (1.8-2.4) mg/dL Iron (50-175) ug/dL TIBC (250-450) ug/dL % Saturation (20-55) % Ferritin (8-252) ng/mL Total Bilirubin 0.8 (0.2-1.0) mg/dL AST 94 H (15-37) IU/L ALT 13 L (14-63) IU/L Alkaline Phosphatase 264 H (46-116) U/L Total Protein 7.5 (6.4-8.2) g/dL Albumin 2.2 L (3.4-5.0) g/dL Globulin 5.3 H (2.6-4.0) g/dL Albumin/Globulin Ratio 0.4 L (0.9-1.6) Urine Color Urine Appearance Urine pH (5.0-8.0) Ur Specific [place] (1.001-1.035) Urine Protein (NEGATIVE) mg/dL Urine Glucose (UA) (NEGATIVE) mg/dL Urine Ketones (NEGATIVE) mg/dL Urine Occult Blood (NEGATIVE) Urine Nitrite (NEGATIVE) Urine Bilirubin (NEGATIVE) Urine Urobilinogen (<2.0) EU/dL Ur Leukocyte Esterase (NEGATIVE) Urine RBC (0-2/HPF) Urine WBC (0-5/HPF) Ur Epithelial Cells (NONE-FEW) Urine Bacteria (NEGATIVE) Random Vancomycin 4.2 ug/mL Blood Type A POSITIVE Antibody Screen NEGATIVE 01/06/19 01/06/19 Range/Units 05:50 05:50 WBC 17.21 H (4.0-11.0) K/uL RBC 3.43 L (4.30-5.90) M/uL Hgb 8.1 L (12.0-16.0) g/dL Hct 26.0 L (36.0-46.0) % MCV 75.8 L (80.0-98.0) fL MCH 23.6 L (27.0-32.0) pg MCHC 31.2 (31.0-37.0) g/dL RDW Std Deviation 55.0 (28.0-62.0) fl RDW Coeff of [place] 20 H (11.0-15.0) % Plt Count 611 H (150-400) K/uL MPV 8.30 (7.40-12.00) fL Neut % (Auto) 84.4 H (48.0-80.0) % Lymph % (Auto) 6.0 L (16.0-40.0) % [place] % (Auto) 9.2 (0.0-15.0) % Eos % (Auto) 0.3 (0.0-7.0) % Baso % (Auto) 0.1 (0.0-1.5) % Neut # (Auto) 14.5 H (1.4-5.7) K/uL Lymph # (Auto) 1.0 (0.6-2.4) K/uL [place] # (Auto) 1.6 H (0.0-0.8) K/uL Eos # (Auto) 0.1 (0.0-0.7) K/uL Baso # (Auto) 0.0 (0.0-0.1) K/uL Nucleated RBC % 0.0 /100WBC Nucleated RBCs # 0 K/uL INR Lactate (0.20-2.00) mmol/L Sodium (136-145) mmol/L Potassium (3.5-5.1) mmol/L Chloride (98-107) mmol/L Carbon Dioxide (21.0-32.0) mmol/L BUN (7.0-18.0) mg/dL Creatinine (0.6-1.0) mg/dL Est Cr Clr Drug Dosing mL/min Estimated GFR (MDRD) ml/min Glucose (74-106) mg/dL Calcium (8.5-10.1) mg/dL Phosphorus (2.6-4.7) mg/dL Magnesium (1.8-2.4) mg/dL Iron 17 L (50-175) ug/dL TIBC 147 L (250-450) ug/dL % Saturation 11.56 L (20-55) % Ferritin 496 H (8-252) ng/mL Total Bilirubin (0.2-1.0) mg/dL AST (15-37) IU/L ALT (14-63) IU/L Alkaline Phosphatase (46-116) U/L Total Protein (6.4-8.2) g/dL Albumin (3.4-5.0) g/dL Globulin (2.6-4.0) g/dL Albumin/Globulin Ratio (0.9-1.6) Urine Color Urine Appearance Urine pH (5.0-8.0) Ur Specific [place] (1.001-1.035) Urine Protein (NEGATIVE) mg/dL Urine Glucose (UA) (NEGATIVE) mg/dL Urine Ketones (NEGATIVE) mg/dL Urine Occult Blood (NEGATIVE) Urine Nitrite (NEGATIVE) Urine Bilirubin (NEGATIVE) Urine Urobilinogen (<2.0) EU/dL Ur Leukocyte Esterase (NEGATIVE) Urine RBC (0-2/HPF) Urine WBC (0-5/HPF) Ur Epithelial Cells (NONE-FEW) Urine Bacteria (NEGATIVE) Random Vancomycin ug/mL Blood Type Antibody Screen Fernando Results Last 24 Hours: Microbiology 01/05/19 18:30 Gram Stain - Preliminary Sputum - Expectorated 01/05/19 14:50 Anaerobic Blood Culture - Final Blood - Venous Med Orders - Current: Current Medications Albuterol/Ipratropium (Duoneb 3.0-0.5 Mg/3 Ml) 3 ml NEB Q4HRRT PRN PRN Reason: Shortness Of Breath/wheezing Docusate Sodium (Colace) 100 mg PO BID PRN PRN Reason: Constipation Last Admin: 01/06/19 04:35 Dose: 100 mg Pantoprazole Sodium 40 mg/ (Sodium Chloride) 10 mls @ 200 mls/hr IV Q12H [facility] Last Admin: 01/06/19 10:14 Dose: 200 mls/hr Sodium Chloride (Normal Saline) 1,000 mls @ 125 mls/hr IV Q8H [facility] Last Admin: 01/06/19 08:31 Dose: Not Given Aztreonam 1 gm/ Sodium (Chloride) 50 mls @ 100 mls/hr IV Q12HR [facility] Last Admin: 01/06/19 10:13 Dose: 100 mls/hr Vancomycin HCl 1 gm/ Sodium (Chloride) 250 mls @ 166 mls/hr IV Q12H [facility] Lorazepam (Ativan) 0.5 mg PO ONETIME PRN PRN Reason: Anxiety Last Admin: 01/06/19 08:41 Dose: 0.5 mg Morphine Sulfate (Morphine) 1 mg IVPUSH Q6H PRN PRN Reason: Pain (severe 7-10) Stop: 01/06/19 15:07 Last Admin: 01/06/19 10:19 Dose: 1 mg Polyethylene Glycol (Miralax) 17 gm PO DAILY PRN PRN Reason: Constipation Sodium Chloride (Saline Flush) 10 ml FLUSH ASDIRECTED PRN PRN Reason: Keep Vein Open Last Admin: 01/05/19 12:21 Dose: 10 ml Sodium Chloride (Saline Flush) 2.5 ml FLUSH ASDIRECTED PRN PRN Reason: Keep Vein Open Last Admin: 01/05/19 12:21 Dose: 2.5 ml Vancomycin HCl (Pharmacy To Dose - Vancomycin) 1 dose .XX ASDIRECTED KEVIN Discontinued Medications Levofloxacin/Dextrose 750 mg/ (Premix) 150 mls @ 100 mls/hr IV ONETIME ONE Stop: 01/05/19 15:35 Last Admin: 01/05/19 15:03 Dose: 100 mls/hr Sodium Chloride (Normal Saline) 1,000 mls @ 100 mls/hr IV ASDIRECTED KEVIN Last Admin: 01/05/19 15:00 Dose: 100 mls/hr Levofloxacin/Dextrose 750 mg/ (Premix) 150 mls @ 100 mls/hr IV Q24H KEVIN Sodium Chloride (Normal Saline) 1,000 mls @ 1,000 mls/hr IV .Bolus ONE Stop: 01/05/19 19:29 Last Admin: 01/05/19 18:43 Dose: 1,000 mls/hr Piperacillin Sod/Tazobactam (Sod 3.375 gm/ Sodium Chloride) 50 mls @ 100 mls/ hr IV Q8H [facility] Last Admin: 01/05/19 19:53 Dose: Not Given Vancomycin HCl 1 gm/ Sodium (Chloride) 250 mls @ 166 mls/hr IV Q12H [facility] Last Admin: 01/06/19 09:31 Dose: Not Given Sodium Chloride (Normal Saline (Advbag)) Confirm Administered Dose 250 mls @ as directed .ROUTE .STK-MED ONE Stop: 01/05/19 19:08 Last Admin: 01/05/19 19:24 Dose: 166 mls/hr Sodium Chloride (Normal Saline (Advbag)) Confirm Administered Dose 250 mls @ as directed .ROUTE .STK-MED ONE Stop: 01/05/19 19:18 Last Admin: 01/05/19 19:25 Dose: Not Given Vancomycin HCl 1 gm/ Sodium (Chloride) 250 mls @ 166 mls/hr IV Q12H [facility] Last Admin: 01/06/19 08:29 Dose: Not Given Sodium Chloride (Normal Saline (Advbag)) Confirm Administered Dose 250 mls @ as directed .ROUTE .STK-MED ONE Stop: 01/06/19 08:21 Last Admin: 01/06/19 08:28 Dose: 166 mls/hr Iopamidol (Isovue Multipack-370 (76%)) 70 ml IVPUSH ONETIME STA Stop: 01/05/19 13:12 Last Admin: 01/05/19 13:12 Dose: 70 ml Lorazepam (Ativan) 1 mg IVPUSH ONETIME ONE Stop: 01/05/19 12:01 Last Admin: 01/05/19 12:18 Dose: 1 mg Simethicone (Simethicone) 80 mg PO ONETIME ONE Stop: 01/06/19 05:41 Last Admin: 01/06/19 05:55 Dose: 80 mg Vancomycin HCl (Vancocin) Confirm Administered Dose 1 gm .ROUTE .STK-MED ONE Stop: 01/05/19 19:07 Last Admin: 01/05/19 19:23 Dose: 1 gm Vancomycin HCl (Vancocin) Confirm Administered Dose 1 gm .ROUTE .STK-MED ONE Stop: 01/06/19 08:21 Last Admin: 01/06/19 08:27 Dose: 1 gm - Exam General: Moderate Distress, Sedated, Lethargic HEENT: Pupils Equal Neck: Supple Lungs: Decreased Breath Sounds, Rales Cardiovascular: Regular Rate, Regular Rhythm GI/Abdominal Exam: Distended, Tender Extremities: Normal Inspection, Normal Range of Motion Peripheral Pulses: 3+: Posterior Tibial (R), Dorsalis Pedis (L) - Problem List & Annotations (1) Pneumonia SNOMED Code(s): 699908384 Code(s): J18.9 - PNEUMONIA, UNSPECIFIED ORGANISM Status: Acute Current Visit: Yes Qualifiers: Pneumonia type: due to unspecified organism Laterality: left Lung location: lower lobe of lung Qualified Code(s): J18.1 - Lobar pneumonia, unspecified organism (2) Anemia SNOMED Code(s): 016369051 Code(s): D64.9 - ANEMIA, UNSPECIFIED Status: Acute Current Visit: Yes Qualifiers: Anemia type: unspecified type Qualified Code(s): D64.9 - Anemia, unspecified (3) Abdominal pain SNOMED Code(s): 84942434 Code(s): R10.9 - UNSPECIFIED ABDOMINAL PAIN Status: Acute Current Visit: No Qualifiers: Abdominal location: right upper quadrant Qualified Code(s): R10.11 - Right upper quadrant pain (4) Metastatic cancer SNOMED Code(s): 637417193 Code(s): C79.9 - SECONDARY MALIGNANT NEOPLASM OF UNSPECIFIED SITE Status: Acute Current Visit: No (5) Severe sepsis SNOMED Code(s): 68627422 Code(s): A41.9 - SEPSIS, UNSPECIFIED ORGANISM; R65.20 - SEVERE SEPSIS WITHOUT SEPTIC SHOCK Status: Acute Current Visit: Yes - Problem List Review Problem List Initiated/Reviewed/Updated: Yes - My Orders Last 24 Hours: My Active Orders 01/05/19 15:04 Bedrest Bathroom Privileges [RC] ASDIRECTED Oxygen Therapy [RC] PRN VTE/DVT Education [RC] PER UNIT ROUTINE Vital Signs [RC] Q4H Albuterol/Ipratropium [DuoNeb 3.0-0.5 MG/3 ML] 3 ml NEB Q4HRRT PRN Docusate Sodium [Colace] 100 mg PO BID PRN Morphine 1 mg IVPUSH Q6H PRN Polyethylene Glycol 3350 [MiraLAX] 17 gm PO DAILY PRN Resuscitation Status Routine 01/05/19 15:09 RT Aerosol Therapy [RC] ASDIRECTED 01/05/19 15:30 Sodium Chloride 0.9% [Normal Saline] 1,000 ml IV Q8H 01/05/19 18:30 CULTURE SPUTUM + SMEAR [RM] Stat 01/05/19 21:00 Aztreonam [Azactam] 1 gm Sodium Chloride 0.9% [Normal Saline] 50 ml IV Q12HR Pantoprazole [ProTONIX IV] 40 mg Sodium Chloride 0.9% [Normal Saline] 10 ml IV Q12H 01/06/19 00:00 LORazepam [Ativan] 0.5 mg PO ONETIME PRN 01/06/19 20:15 Vancomycin [Vancocin] 1 gm Sodium Chloride 0.9% [Normal Saline (AdvBag)] 250 ml IV Q12H 01/06/19 Lunch Mechanical Soft Diet [DIET] 01/07/19 07:00 VANCOMYCIN TROUGH [CHEM] Routine - Plan Plan:: Severe Sepsis sec to PNA: Patient comes in with c/o abdominal pain, fever, chills, cough CT abdomen showed progression of mets, and an infiltrate in her LLL cont Vancomycin and Aztreonam f/u on Blood cultures cont Morphine for pain Monitor renal function closely cont monitor vitals closely Anemia/Rectal bleed: No active GI bleed, hold off on transfusion cont IV PPI constipation: improving with bowel regimen Goals of care were discussed in details, since patient want more aggressive pain control but still wants to be full code. Explained to her about comfort care patient said she will consider.
[2019-01-06] MEDS ORDERED: Levofloxacin/Dextrose 5%-Water 750 MG in Premix Bag 1 BAG IV SCH (15:15)
[2019-01-06] MEDS: HYDROmorphone 1 MG/ML Syringe IVPUSH PRN ×2 (16:52→22:47)
[2019-01-06] MEDS: Simethicone 80 MG Tab.Chew PO PRN (20:52)
[2019-01-06] MEDS ORDERED: Iron Sucrose Complex 100 MG/5 ML SDV IVPUSH ONE (21:12)
[2019-01-06] MEDS: Nicotine 21 MG/24 Hr Patch TRDERM SCH (22:46)
[2019-01-06] MEDS: Heparin Sodium 5,000 Units/ML Vial SUBCUT SCH (23:50)
[2019-01-07] MEDS: Simethicone 80 MG Tab.Chew PO PRN ×4 (02:39→23:21)
[2019-01-07] MEDS: HYDROmorphone 1 MG/ML Syringe IVPUSH PRN ×4 (04:54→23:24)
[2019-01-07] MEDS: Docusate Sodium 100 MG Cap PO PRN (04:55)
[2019-01-07 07:46] LABS: BLOOD UREA NITROGEN,BUN 4 mg/dL (7.0-18.0); CARBON DIOXIDE,CO2 26.4 mmol/L (21.0-32.0); CHLORIDE,CL 96 mmol/L (98-107); GLUCOSE RANDOM 93 mg/dL (74-106); POTASSIUM,K 3.3 mmol/L (3.5-5.1); SODIUM,NA 132 mmol/L (136-145)
[2019-01-07] MEDS: Heparin Sodium 5,000 Units/ML Vial SUBCUT SCH (08:12)
[2019-01-07] MEDS: Pantoprazole 40 MG in Sodium Chloride 0.9% 10 ML IV SCH ×2 (08:30→20:21)
[2019-01-07] MEDS: Nicotine 21 MG/24 Hr Patch TRDERM SCH (08:34)
[2019-01-07] MEDS ORDERED: Potassium Phosphates 15 MMOLE in Sodium Chloride 0.9% 250 ML IV ONE (08:51)
[2019-01-07] MEDS ORDERED: Magnesium Oxide 400 MG Tab PO ONE (08:52)
--- NOTE | 2019-01-07 09:57 | PCM.PN ---
- General Info Date of Service: 01/07/19 Admission Dx/Problem (Free Text): Admission Diagnosis/Problem Admission Diagnosis/Problem Pneumonia Subjective Update: Patient seen and examined at bedside. Lethargic, c/o weakness, nausea, and abdominal pain - Review of Systems General: Reports: Weakness, Fatigue, Malaise Pulmonary: Reports: Shortness of Breath, Cough Cardiovascular: Reports: Dyspnea on Exertion Gastrointestinal: Reports: Abdominal Pain, Decreased Appetite, Nausea, Vomiting Genitourinary: Denies: Dysuria, Frequency, Burning Musculoskeletal: Reports: Back Pain Skin: Denies: Cyanosis, Jaundice - Patient Data Vitals - Most Recent: Last Vital Signs Temp 36.4 C 01/07/19 03:00 Pulse 100 01/07/19 03:00 Resp 20 01/07/19 03:00 BP 129/88 01/07/19 03:00 Pulse Ox 96 01/07/19 03:00 Weight - Most Recent: 56.699 kg I&O - Last 24 Hours: Intake & Output 01/06/19 01/07/19 01/07/19 22:59 06:59 14:59 Intake Total 920 500 Output Total 1700 1350 Balance -780 -850 Lab Results Last 24 Hours: Laboratory Results - last 24 hr 01/07/19 01/07/19 01/07/19 Range/Units 07:18 07:18 07:18 WBC 14.67 H (4.0-11.0) K/uL RBC 3.35 L (4.30-5.90) M/uL Hgb 7.8 L (12.0-16.0) g/dL Hct 25.5 L (36.0-46.0) % MCV 76.1 L (80.0-98.0) fL MCH 23.3 L (27.0-32.0) pg MCHC 30.6 L (31.0-37.0) g/dL RDW Std Deviation 55.2 (28.0-62.0) fl RDW Coeff of [place] 20 H (11.0-15.0) % Plt Count 546 H (150-400) K/uL MPV 8.20 (7.40-12.00) fL Neut % (Auto) 77.0 (48.0-80.0) % Lymph % (Auto) 8.7 L (16.0-40.0) % [place] % (Auto) 12.3 (0.0-15.0) % Eos % (Auto) 1.9 (0.0-7.0) % Baso % (Auto) 0.1 (0.0-1.5) % Neut # (Auto) 11.3 H (1.4-5.7) K/uL Lymph # (Auto) 1.3 (0.6-2.4) K/uL [place] # (Auto) 1.8 H (0.0-0.8) K/uL Eos # (Auto) 0.3 (0.0-0.7) K/uL Baso # (Auto) 0.0 (0.0-0.1) K/uL Nucleated RBC % 0.0 /100WBC Nucleated RBCs # 0 K/uL Sodium 132 L (136-145) mmol/L Potassium 3.3 L (3.5-5.1) mmol/L Chloride 96 L (98-107) mmol/L Carbon Dioxide 26.4 (21.0-32.0) mmol/L BUN 4 L (7.0-18.0) mg/dL Creatinine 0.6 (0.6-1.0) mg/dL Est Cr Clr Drug Dosing 99.29 mL/min Estimated GFR (MDRD) > 60.0 ml/min Glucose 93 (74-106) mg/dL Calcium 8.4 L (8.5-10.1) mg/dL Phosphorus 2.3 L (2.6-4.7) mg/dL Magnesium 1.8 (1.8-2.4) mg/dL Vancomycin Trough 5.5 (5.0-10.0) ug/mL Fernando Results Last 24 Hours: Microbiology 01/05/19 18:30 Gram Stain - Preliminary Sputum - Expectorated 01/05/19 13:15 Urine Culture - Final Urine, Voided Escherichia Coli 01/05/19 14:55 Aerobic Blood Culture - Preliminary Blood - Venous - Lab Draw NO GROWTH AFTER 1 DAY Anaerobic Blood Culture - Preliminary NO GROWTH AFTER 1 DAY 01/05/19 14:50 Aerobic Blood Culture - Preliminary Blood - Venous NO GROWTH AFTER 1 DAY Anaerobic Blood Culture - Final Med Orders - Current: Current Medications Albuterol/Ipratropium (Duoneb 3.0-0.5 Mg/3 Ml) 3 ml NEB Q4HRRT PRN PRN Reason: Shortness Of Breath/wheezing Docusate Sodium (Colace) 100 mg PO BID PRN PRN Reason: Constipation Last Admin: 01/07/19 04:55 Dose: 100 mg Heparin Sodium (Porcine) (Heparin Sodium) 5,000 units SUBCUT Q8H [facility] Last Admin: 01/07/19 08:12 Dose: 5,000 units Hydromorphone HCl (Dilaudid) 0.5 mg IVPUSH Q6H PRN PRN Reason: Pain (severe 7-10) Last Admin: 01/07/19 04:54 Dose: 0.5 mg Pantoprazole Sodium 40 mg/ (Sodium Chloride) 10 mls @ 200 mls/hr IV Q12H [facility]IN Last Admin: 01/07/19 08:30 Dose: 200 mls/hr Aztreonam 1 gm/ Sodium (Chloride) 50 mls @ 100 mls/hr IV Q12HR [facility] [place] Last Admin: 01/07/19 08:14 Dose: 100 mls/hr Vancomycin HCl 1 gm/ Sodium (Chloride) 250 mls @ 166 mls/hr IV Q8H [facility] [place] Iron Sucrose (Venofer) 100 mg IVPUSH ONETIME ONE Stop: 01/06/19 21:13 Lorazepam (Ativan) 0.5 mg PO ONETIME PRN PRN Reason: Anxiety Last Admin: 01/06/19 08:41 Dose: 0.5 mg Nicotine (Habitrol) 21 mg TRDERM DAILY [facility] [place] Last Admin: 01/07/19 08:34 Dose: 21 mg Polyethylene Glycol (Miralax) 17 gm PO DAILY PRN PRN Reason: Constipation Last Admin: 01/07/19 04:55 Dose: 17 gm Simethicone (Simethicone) 80 mg PO Q6H PRN PRN Reason: Gas Last Admin: 01/07/19 09:25 Dose: 80 mg Sodium Chloride (Saline Flush) 10 ml FLUSH ASDIRECTED PRN PRN Reason: Keep Vein Open Last Admin: 01/05/19 12:21 Dose: 10 ml Sodium Chloride (Saline Flush) 2.5 ml FLUSH ASDIRECTED PRN PRN Reason: Keep Vein Open Last Admin: 01/05/19 12:21 Dose: 2.5 ml Vancomycin HCl (Pharmacy To Dose - Vancomycin) 1 dose .XX ASDIRECTED [facility] [place] Discontinued Medications Levofloxacin/Dextrose 750 mg/ (Premix) 150 mls @ 100 mls/hr IV ONETIME ONE Stop: 01/05/19 15:35 Last Admin: 01/05/19 15:03 Dose: 100 mls/hr Sodium Chloride (Normal Saline) 1,000 mls @ 100 mls/hr IV ASDIRECTED [facility] [place] Last Admin: 01/05/19 15:00 Dose: 100 mls/hr Levofloxacin/Dextrose 750 mg/ (Premix) 150 mls @ 100 mls/hr IV Q24H [facility] Sodium Chloride (Normal Saline) 1,000 mls @ 125 mls/hr IV Q8H [facility] [place] Last Admin: 01/06/19 08:31 Dose: Not Given Sodium Chloride (Normal Saline) 1,000 mls @ 1,000 mls/hr IV .Bolus ONE Stop: 01/05/19 19:29 Last Admin: 01/05/19 18:43 Dose: 1,000 mls/hr Piperacillin Sod/Tazobactam (Sod 3.375 gm/ Sodium Chloride) 50 mls @ 100 mls/ hr IV Q8H [facility] [place] Last Admin: 01/05/19 19:53 Dose: Not Given Vancomycin HCl 1 gm/ Sodium (Chloride) 250 mls @ 166 mls/hr IV Q12H [facility] [place] Last Admin: 01/06/19 09:31 Dose: Not Given Sodium Chloride (Normal Saline (Advbag)) Confirm Administered Dose 250 mls @ as directed .ROUTE .STK-MED ONE Stop: 01/05/19 19:08 Last Admin: 01/05/19 19:24 Dose: 166 mls/hr Sodium Chloride (Normal Saline (Advbag)) Confirm Administered Dose 250 mls @ as directed .ROUTE .STK-MED ONE Stop: 01/05/19 19:18 Last Admin: 01/05/19 19:25 Dose: Not Given Vancomycin HCl 1 gm/ Sodium (Chloride) 250 mls @ 166 mls/hr IV Q12H [facility] [place] Last Admin: 01/06/19 08:29 Dose: Not Given Sodium Chloride (Normal Saline (Advbag)) Confirm Administered Dose 250 mls @ as directed .ROUTE .STK-MED ONE Stop: 01/06/19 08:21 Last Admin: 01/06/19 08:28 Dose: 166 mls/hr Vancomycin HCl 1 gm/ Sodium (Chloride) 250 mls @ 166 mls/hr IV Q12H [facility] Last Admin: 01/06/19 19:46 Dose: 166 mls/hr Potassium Phosphate 15 mmole/ (Sodium Chloride) 255 mls @ 63.75 mls/hr IV NOW ONE Stop: 01/07/19 08:52 Iopamidol (Isovue Multipack-370 (76%)) 70 ml IVPUSH ONETIME STA Stop: 01/05/19 13:12 Last Admin: 01/05/19 13:12 Dose: 70 ml Lorazepam (Ativan) 1 mg IVPUSH ONETIME ONE Stop: 01/05/19 12:01 Last Admin: 01/05/19 12:18 Dose: 1 mg Magnesium Oxide (Magnesium Oxide) 800 mg PO ONETIME ONE Stop: 01/07/19 08:53 Morphine Sulfate (Morphine) 1 mg IVPUSH Q6H PRN PRN Reason: Pain (severe 7-10) Stop: 01/06/19 15:07 Last Admin: 01/06/19 10:19 Dose: 1 mg Simethicone (Simethicone) 80 mg PO ONETIME ONE Stop: 01/06/19 05:41 Last Admin: 01/06/19 05:55 Dose: 80 mg Vancomycin HCl (Vancocin) Confirm Administered Dose 1 gm .ROUTE .STK-MED ONE Stop: 01/05/19 19:07 Last Admin: 01/05/19 19:23 Dose: 1 gm Vancomycin HCl (Vancocin) Confirm Administered Dose 1 gm .ROUTE .STK-MED ONE Stop: 01/06/19 08:21 Last Admin: 01/06/19 08:27 Dose: 1 gm - Exam Quality Assessment: Supplemental Oxygen General: Alert, Oriented, Cooperative, Mild Distress Neck: Supple, Trachea Midline Lungs: Decreased Breath Sounds Cardiovascular: Regular Rate, Regular Rhythm GI/Abdominal Exam: Normal Bowel Sounds, Distended, Tender Extremities: Normal Inspection, Normal Range of Motion Peripheral Pulses: 3+: Dorsalis Pedis (L), Dorsalis Pedis (R) - Problem List & Annotations (1) Pneumonia SNOMED Code(s): 135659860 Code(s): J18.9 - PNEUMONIA, UNSPECIFIED ORGANISM Status: Acute Current Visit: Yes Qualifiers: Pneumonia type: due to unspecified organism Laterality: left Lung location: lower lobe of lung Qualified Code(s): J18.1 - Lobar pneumonia, unspecified organism (2) Anemia SNOMED Code(s): 871668056 Code(s): D64.9 - ANEMIA, UNSPECIFIED Status: Acute Current Visit: Yes Qualifiers: Anemia type: unspecified type Qualified Code(s): D64.9 - Anemia, unspecified (3) Abdominal pain SNOMED Code(s): 49070120 Code(s): R10.9 - UNSPECIFIED ABDOMINAL PAIN Status: Acute Current Visit: No Qualifiers: Abdominal location: right upper quadrant Qualified Code(s): R10.11 - Right upper quadrant pain (4) Metastatic cancer SNOMED Code(s): 883403959 Code(s): C79.9 - SECONDARY MALIGNANT NEOPLASM OF UNSPECIFIED SITE Status: Acute Current Visit: No (5) Severe sepsis SNOMED Code(s): 00572726 Code(s): A41.9 - SEPSIS, UNSPECIFIED ORGANISM; R65.20 - SEVERE SEPSIS WITHOUT SEPTIC SHOCK Status: Acute Current Visit: Yes Annotation/Comment: : sec to HCAP - Problem List Review Problem List Initiated/Reviewed/Updated: Yes - My Orders Last 24 Hours: My Active Orders 01/06/19 16:32 HYDROmorphone [Dilaudid] 0.5 mg IVPUSH Q6H PRN 01/06/19 20:08 Transfer Patient (Change bed) [ADT] Routine 01/06/19 20:11 Simethicone 80 mg PO Q6H PRN 01/06/19 20:46 CULTURE MRSA [RM] Routine 01/06/19 21:12 Iron Sucrose Complex [Venofer] 100 mg IVPUSH ONETIME ONE 01/06/19 22:30 Nicotine [Habitrol] 21 mg TRDERM DAILY 01/06/19 Lunch Mechanical Soft Diet [DIET] 01/07/19 00:00 Heparin Sodium 5,000 units SUBCUT Q8H 01/07/19 07:15 Consult to Hospice [CONS] Routine 01/07/19 08:45 Vancomycin [Vancocin] 1 gm Sodium Chloride 0.9% [Normal Saline (AdvBag)] 250 ml IV Q8H - Plan Plan:: Severe Sepsis sec to HCAP: suspected gram negative infection on initial presentation.: Patient comes in with c/o abdominal pain, fever, chills, cough CT abdomen showed progression of mets, and an infiltrate in her LLL was started on Vancomycin and Aztreonam, deescalate based on cultures f/u on Blood cultures, so far negative Resp cultures noted cont Dilaudid for pain Monitor renal function closely cont monitor vitals closely Anemia/Rectal bleed: Hb dropped today, likely due blood draws No active GI bleed, PO PPI Will transfuse 1 unit PRBC Constipation: improving with bowel regimen Goals of care were discussed in details, since patient want more aggressive pain control but still wants to be full code. Explained to her about comfort care patient said she will consider.
--- NOTE | 2019-01-07 10:10 | PCM.SN ---
- Free Text/Narrative Note: I spoke to patient in detail for about 30 min about her Goals of care, she is well aware of her prognosis but still wants to try the new chemotherpay that is being offered by her oncologist. She states she would like to talk to hospice and get some more information. Patient states that is her last hope and if that doesn't work she will consider hospice
[2019-01-07] MEDS ORDERED: Iron Sucrose Complex 100 MG in Sodium Chloride 0.9% 100 ML IV SCH (12:00)
[2019-01-07] MEDS: Ondansetron 4 MG/2 ML SDV IVPUSH PRN ×2 (12:07→23:21)
[2019-01-07] MEDS ORDERED: fentaNYL 25 MCG/HR Transdermal Patch TRDERM SCH (12:30)
[2019-01-08] MEDS: Simethicone 80 MG Tab.Chew PO PRN (06:37)
[2019-01-08] MEDS: HYDROmorphone 1 MG/ML Syringe IVPUSH PRN (06:38)
--- NOTE | 2019-01-08 08:29 | PCM.DCSUM1 ---
Discharge Summary - Discharge Data Discharge Date: 01/08/19 Discharge Disposition: Home, Self-Care 01 Condition: Stable - Referral to Home Health Primary Care Physician: PCP Unobtainable - Patient Summary/Data Consults: Consultations 01/07/19 07:15 Consult to Hospice [CONS] Routine Hospital Course: 53 year old female with past medical history of stage 4 colon cancer who was admitted for pneumonia. She presented with abdominal pain and shortness of breath. CT scan of the abdomen showed significant increase in her liver metastasis and left lung infiltrate. She was treated with broad spectrum antibiotics due to concern for possible gram negative ralph respiratory infection. She did have improvement in her symptoms and today she is requesting discharge home. She was discharged home with Levaquin for seven more days with home health palliative care. - Patient Instructions Diet: Regular Diet as Tolerated - Discharge Plan Prescriptions/Med Rec: Levofloxacin [Levaquin] 500 mg PO DAILY #7 tablet Home Medications: Home Meds Ondansetron [Zofran] 8 mg PO Q8H PRN 07/07/18 [History] Prochlorperazine Maleate [Compazine] 10 mg PO TID 07/07/18 [History] amLODIPine [Norvasc] 5 mg PO DAILY 07/07/18 [History] oxyCODONE 10 mg PO Q6H PRN 07/07/18 [History] Albuterol Sulfate [Proair Hfa] 2 puff IH Q4H PRN 01/05/19 [History] fentaNYL [Duragesic] 1 patch TD Q72H 01/05/19 [History] Levofloxacin [Levaquin] 500 mg PO DAILY #7 tablet 01/08/19 [Rx] Referrals: Isrrael Watkins MD [Physician] - 01/16/19 9:45 am - Discharge Summary/Plan Comment DC Time >30 min.: No - Patient Data Vitals - Most Recent: Last Vital Signs Temp 36.3 C 01/08/19 07:27 Pulse 106 H 01/08/19 07:27 Resp 16 01/08/19 07:27 BP 126/84 01/08/19 07:27 Pulse Ox 97 01/08/19 07:27 Weight - Most Recent: 56.699 kg I&O - Last 24 hours: Intake & Output 01/07/19 01/08/19 01/08/19 22:59 06:59 14:59 Intake Total 995 1450 Output Total 5397 5640 Balance -1080 -200 Lab Results - Last 24 hrs: Laboratory Results - last 24 hr 01/05/19 01/07/19 Range/Units 19:45 19:03 Hgb 9.7 L (12.0-16.0) g/dL Hct 30.5 L (36.0-46.0) % Blood Type A POSITIVE Antibody Screen NEGATIVE Crossmatch See Detail NAZIA Results - Last 24 hrs: Microbiology 01/05/19 14:55 Aerobic Blood Culture - Preliminary Blood - Venous - Lab Draw NO GROWTH AFTER 2 DAYS Anaerobic Blood Culture - Preliminary NO GROWTH AFTER 2 DAYS 01/05/19 14:50 Aerobic Blood Culture - Preliminary Blood - Venous NO GROWTH AFTER 2 DAYS Anaerobic Blood Culture - Final 01/05/19 18:30 Gram Stain - Final Sputum - Expectorated Sputum Culture - Final Normal Respiratory Charlene YEAST 01/05/19 13:15 Urine Culture - Final Urine, Voided Escherichia Coli Med Orders - Current: Current Medications Albuterol/Ipratropium (Duoneb 3.0-0.5 Mg/3 Ml) 3 ml NEB Q4HRRT PRN PRN Reason: Shortness Of Breath/wheezing Docusate Sodium (Colace) 100 mg PO BID PRN PRN Reason: Constipation Last Admin: 01/07/19 04:55 Dose: 100 mg Fentanyl (Duragesic) 25 mcg TRDERM Q72H [facility] Last Admin: 01/07/19 12:42 Dose: 25 mcg Hydromorphone HCl (Dilaudid) 0.5 mg IVPUSH Q6H PRN PRN Reason: Pain (severe 7-10) Last Admin: 01/08/19 06:38 Dose: 0.5 mg Pantoprazole Sodium 40 mg/ (Sodium Chloride) 10 mls @ 200 mls/hr IV Q12H [facility] Last Admin: 01/07/19 20:21 Dose: 200 mls/hr Lorazepam (Ativan) 0.5 mg PO ONETIME PRN PRN Reason: Anxiety Last Admin: 01/06/19 08:41 Dose: 0.5 mg Nicotine (Habitrol) 21 mg TRDERM DAILY [facility] Last Admin: 01/07/19 08:34 Dose: 21 mg Ondansetron HCl (Zofran) 4 mg IVPUSH Q6H PRN PRN Reason: Nausea/Vomiting Last Admin: 01/07/19 23:21 Dose: 4 mg Polyethylene Glycol (Miralax) 17 gm PO DAILY PRN PRN Reason: Constipation Last Admin: 01/07/19 04:55 Dose: 17 gm Simethicone (Simethicone) 80 mg PO Q6H PRN PRN Reason: Gas Last Admin: 01/08/19 06:37 Dose: 80 mg Sodium Chloride (Saline Flush) 10 ml FLUSH ASDIRECTED PRN PRN Reason: Keep Vein Open Last Admin: 01/05/19 12:21 Dose: 10 ml Sodium Chloride (Saline Flush) 2.5 ml FLUSH ASDIRECTED PRN PRN Reason: Keep Vein Open Last Admin: 01/05/19 12:21 Dose: 2.5 ml Vancomycin HCl (Pharmacy To Dose - Vancomycin) 1 dose .XX ASDIRECTED [facility]EVIN Discontinued Medications Heparin Sodium (Porcine) (Heparin Sodium) 5,000 units SUBCUT Q8H [facility] Last Admin: 01/07/19 08:12 Dose: 5,000 units Levofloxacin/Dextrose 750 mg/ (Premix) 150 mls @ 100 mls/hr IV ONETIME ONE Stop: 01/05/19 15:35 Last Admin: 01/05/19 15:03 Dose: 100 mls/hr Sodium Chloride (Normal Saline) 1,000 mls @ 100 mls/hr IV ASDIRECTED [facility] Last Admin: 01/05/19 15:00 Dose: 100 mls/hr Levofloxacin/Dextrose 750 mg/ (Premix) 150 mls @ 100 mls/hr IV Q24H [facility] Sodium Chloride (Normal Saline) 1,000 mls @ 125 mls/hr IV Q8H [facility] Last Admin: 01/06/19 08:31 Dose: Not Given Sodium Chloride (Normal Saline) 1,000 mls @ 1,000 mls/hr IV .Bolus ONE Stop: 01/05/19 19:29 Last Admin: 01/05/19 18:43 Dose: 1,000 mls/hr Piperacillin Sod/Tazobactam (Sod 3.375 gm/ Sodium Chloride) 50 mls @ 100 mls/ hr IV Q8H [facility] Last Admin: 01/05/19 19:53 Dose: Not Given Vancomycin HCl 1 gm/ Sodium (Chloride) 250 mls @ 166 mls/hr IV Q12H [facility] Last Admin: 01/06/19 09:31 Dose: Not Given Sodium Chloride (Normal Saline (Advbag)) Confirm Administered Dose 250 mls @ as directed .ROUTE .STK-MED ONE Stop: 01/05/19 19:08 Last Admin: 01/05/19 19:24 Dose: 166 mls/hr Sodium Chloride (Normal Saline (Advbag)) Confirm Administered Dose 250 mls @ as directed .ROUTE .STK-MED ONE Stop: 01/05/19 19:18 Last Admin: 01/05/19 19:25 Dose: Not Given Aztreonam 1 gm/ Sodium (Chloride) 50 mls @ 100 mls/hr IV Q12HR [facility] Last Admin: 01/07/19 08:14 Dose: 100 mls/hr Vancomycin HCl 1 gm/ Sodium (Chloride) 250 mls @ 166 mls/hr IV Q12H [facility] Last Admin: 01/06/19 08:29 Dose: Not Given Sodium Chloride (Normal Saline (Advbag)) Confirm Administered Dose 250 mls @ as directed .ROUTE .STK-MED ONE Stop: 01/06/19 08:21 Last Admin: 01/06/19 08:28 Dose: 166 mls/hr Vancomycin HCl 1 gm/ Sodium (Chloride) 250 mls @ 166 mls/hr IV Q12H [facility] Last Admin: 01/07/19 10:06 Dose: Not Given Vancomycin HCl 1 gm/ Sodium (Chloride) 250 mls @ 166 mls/hr IV Q8H [facility] Last Admin: 01/07/19 17:35 Dose: 166 mls/hr Potassium Phosphate 15 mmole/ (Sodium Chloride) 255 mls @ 63.75 mls/hr IV NOW ONE Stop: 01/07/19 08:52 Last Admin: 01/07/19 11:51 Dose: 63.75 mls/hr Iron Sucrose 100 mg/ Sodium (Chloride) 105 mls @ 420 mls/hr IV ONETIME KEVIN Stop: 01/07/19 12:14 Iopamidol (Isovue Multipack-370 (76%)) 70 ml IVPUSH ONETIME STA Stop: 01/05/19 13:12 Last Admin: 01/05/19 13:12 Dose: 70 ml Lorazepam (Ativan) 1 mg IVPUSH ONETIME ONE Stop: 01/05/19 12:01 Last Admin: 01/05/19 12:18 Dose: 1 mg Magnesium Oxide (Magnesium Oxide) 800 mg PO ONETIME ONE Stop: 01/07/19 08:53 Last Admin: 01/07/19 10:03 Dose: 800 mg Morphine Sulfate (Morphine) 1 mg IVPUSH Q6H PRN PRN Reason: Pain (severe 7-10) Stop: 01/06/19 15:07 Last Admin: 01/06/19 10:19 Dose: 1 mg Simethicone (Simethicone) 80 mg PO ONETIME ONE Stop: 01/06/19 05:41 Last Admin: 01/06/19 05:55 Dose: 80 mg Vancomycin HCl (Vancocin) Confirm Administered Dose 1 gm .ROUTE .STK-MED ONE Stop: 01/05/19 19:07 Last Admin: 01/05/19 19:23 Dose: 1 gm Vancomycin HCl (Vancocin) Confirm Administered Dose 1 gm .ROUTE .STK-MED ONE Stop: 01/06/19 08:21 Last Admin: 01/06/19 08:27 Dose: 1 gm
[2019-01-08] MEDS: Nicotine 21 MG/24 Hr Patch TRDERM SCH (09:06)
[2019-01-08] MEDS: Pantoprazole 40 MG in Sodium Chloride 0.9% 10 ML IV SCH (09:07)
== END 2019-01-08 10:00 | disposition home or self-care (01) | DRG 871 ==
LOC: MW.ED 11:35 → MW.MS 14:34 → OBSVTOIN 01-06 20:08 → MW.MS 01-06 21:22
PROVIDERS: ADMIT Student in an Organized Health Care Education/Training Program; ATTEND Student in an Organized Health Care Education/Training Program
DX: A41.9 Sepsis, unspecified organism (principal); J18.1 Lobar pneumonia, unspecified organism; J44.0 Chronic obstructive pulmonary disease with (acute) lower respiratory infection; R10.9 Unspecified abdominal pain; R06.02 Shortness of breath; C18.9 Malignant neoplasm of colon, unspecified; C78.00 Secondary malignant neoplasm of unspecified lung; C78.7 Secondary malignant neoplasm of liver and intrahepatic bile duct; J44.9 Chronic obstructive pulmonary disease, unspecified; R65.20 Severe sepsis without septic shock; D64.9 Anemia, unspecified; Z92.21 Personal history of antineoplastic chemotherapy; I10 Essential (primary) hypertension; Z88.0 Allergy status to penicillin; Z88.8 Allergy status to other drugs, medicaments and biological substances; Z79.899 Other long term (current) drug therapy; Z87.891 Personal history of nicotine dependence; Z85.038 Personal history of other malignant neoplasm of large intestine
CPT/HCPCS: 36415 ×2; 71045; 74177; 80053 ×2; 80202; 81001; 82728; 83550; 83605 ×3; 83735; 84100; 85025 ×2; 85610; 86850; 86900; 86901; 86920; 86921; 86922; 87040 ×2; 87070; 87086; 87088; 87186; 87205; 96365; 96375; 99285; A9270 ×3; C9113 ×2; J1170; J1956; J2060; J2270 ×4; J3370 ×3; J3490 ×2; J7040 ×3; J7050 ×8; Q9967; 36430; 80048; 85014; 85018; 96367; 96376; G0378; J1642; J1644; J2405; P9016

== ENCOUNTER 2019-01-15 12:53 | Inpatient (IN) | payer MEDICAID ==
--- NOTE | 2019-01-15 12:55 | EDM.PDOC ---
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 Past medical history: As per history of present illness and as reviewed below otherwise noncontributory. Surgical history: As per history of present illness and as reviewed below otherwise noncontributory. Social history: No reported history of drug or alcohol abuse. Family history: As per history of present illness and as reviewed below otherwise noncontributory. Physical exam: HEENT: Atraumatic, normocephalic, pupils reactive, negative for conjunctival pallor or scleral icterus, mucous membranes moist, throat clear, neck supple, nontender, trachea midline. Lungs: Clear to auscultation, breath sounds equal bilaterally, chest nontender. Heart: S1S2, regular, negative for clicks, rubs, or JVD. Abdomen: Soft, nondistended, nontender. Negative for masses or hepatosplenomegaly. Negative for costovertebral tenderness. Pelvis: Stable nontender. Genitourinary: Deferred. Rectal: Deferred. Extremities: Atraumatic, negative for cords or calf pain. Neurovascular unremarkable. Neuro: Awake, alert, oriented. Cranial nerves II through XII unremarkable. Cerebellum unremarkable. Motor and sensory unremarkable throughout. Exam nonfocal. Diagnostics: [cBC CMP] lipase UA Abdomen flat and upright CT abdomen pelvis on file from January 05 Therapeutics: [Jethro saline ] Impression: [Abdominal pain Colon cancer with metastases to the liver and lung] Definitive disposition and diagnosis as appropriate pending reevaluation and review of above. abdomen Pain Score (Numeric/FACES): 9 - Related Data Allergies Allergy/AdvReac Type Severity Reaction Status Date / Time Penicillins Allergy Hives Verified 01/15/19 12:54 phenobarbital Allergy Other Verified 01/15/19 12:54 phenytoin [From Dilantin] Allergy Hives Verified 01/15/19 12:54 Home Meds: Home Meds Ondansetron [Zofran] 8 mg PO Q8H PRN 07/07/18 [History] Prochlorperazine Maleate [Compazine] 10 mg PO TID 07/07/18 [History] amLODIPine [Norvasc] 5 mg PO DAILY 07/07/18 [History] oxyCODONE 10 mg PO Q6H PRN 07/07/18 [History] Albuterol Sulfate [Proair Hfa] 2 puff IH Q4H PRN 01/05/19 [History] fentaNYL [Duragesic] 1 patch TD Q72H 01/05/19 [History] Levofloxacin [Levaquin] 500 mg PO DAILY #7 tablet 01/08/19 [Rx] Past Medical History HEENT History: Reports: None Cardiovascular History: Reports: Hypertension Respiratory History: Reports: COPD Gastrointestinal History: Reports: None Genitourinary History: Reports: None 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: Reports: 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 Musculoskeletal History: Reports: None Neurological History: Reports: Seizure Psychiatric History: Reports: None Endocrine/Metabolic History: Reports: None Hematologic History: Reports: None Immunologic History: Reports: None Oncologic (Cancer) History: Reports: Colon, Liver Dermatologic History: Reports: None - Infectious Disease History Infectious Disease History: Reports: None Other Infectious Disease History: reports taking interfuron and is cleared - Past Surgical History Head Surgeries/Procedures: Reports: None HEENT Surgical History: Reports: None Cardiovascular Surgical History: Reports: None Respiratory Surgical History: Reports: None GI Surgical History: Reports: None Female Surgical History: Reports: None Endocrine Surgical History: Reports: None Neurological Surgical History: Reports: None Musculoskeletal Surgical History: Reports: None Oncologic Surgical History: Reports: None Dermatological Surgical History: Reports: None Social & Family History - Family History Family Medical History: Noncontributory : Reports: Other (See Below) Other Family History: patient states mother has urostomy bag. Neurological: Reports: Migraines, Seizure Psychiatric: Reports: Bipolar, Depression Oncologic: Reports: Lung - Caffeine Use Caffeine Use: Reports: None ED ROS GENERAL - Review of Systems Review Of Systems: See Below ED EXAM, GENERAL - Physical Exam Exam: See Below Course - Vital Signs Last Recorded V/S: Last Vital Signs Temp 95.5 F 01/15/19 12:54 Pulse 94 01/15/19 12:54 Resp 18 01/15/19 12:54 BP 139/80 01/15/19 12:54 Pulse Ox 95 01/15/19 12:54 - Orders/Labs/Meds Orders: Active Orders 24 hr Category Date Time Status EKG Documentation Completion [RC] STAT Care 01/15/19 12:57 Active Labs: Laboratory Tests 01/15/19 01/15/19 01/15/19 Range/Units 12:58 13:32 13:32 WBC 16.72 H (4.0-11.0) K/uL RBC 3.60 L (4.30-5.90) M/uL Hgb 8.6 L (12.0-16.0) g/dL Hct 27.8 L (36.0-46.0) % MCV 77.2 L (80.0-98.0) fL MCH 23.9 L (27.0-32.0) pg MCHC 30.9 L (31.0-37.0) g/dL RDW Std Deviation 58.1 (28.0-62.0) fl RDW Coeff of [place] 21 H (11.0-15.0) % Plt Count 510 H (150-400) K/uL MPV 8.40 (7.40-12.00) fL Neut % (Auto) 77.2 (48.0-80.0) % Lymph % (Auto) 9.6 L (16.0-40.0) % [place] % (Auto) 12.4 (0.0-15.0) % Eos % (Auto) 0.7 (0.0-7.0) % Baso % (Auto) 0.1 (0.0-1.5) % Neut # (Auto) 12.9 H (1.4-5.7) K/uL Lymph # (Auto) 1.6 (0.6-2.4) K/uL [place] # (Auto) 2.1 H (0.0-0.8) K/uL Eos # (Auto) 0.1 (0.0-0.7) K/uL Baso # (Auto) 0.0 (0.0-0.1) K/uL Nucleated RBC % 0.0 /100WBC Nucleated RBCs # 0 K/uL INR 1.22 Sodium (136-145) mmol/L Potassium (3.5-5.1) mmol/L Chloride (98-107) mmol/L Carbon Dioxide (21.0-32.0) mmol/L BUN (7.0-18.0) mg/dL Creatinine (0.6-1.0) mg/dL Est Cr Clr Drug Dosing mL/min Estimated GFR (MDRD) ml/min Glucose (74-106) mg/dL Calcium (8.5-10.1) mg/dL Total Bilirubin (0.2-1.0) mg/dL AST (15-37) IU/L ALT (14-63) IU/L Alkaline Phosphatase (46-116) U/L Troponin I (0.000-0.056) ng/mL Total Protein (6.4-8.2) g/dL Albumin (3.4-5.0) g/dL Globulin (2.6-4.0) g/dL Albumin/Globulin Ratio (0.9-1.6) Lipase (73-393) U/L Urine Color YELLOW Urine Appearance CLEAR Urine pH 6.0 (5.0-8.0) Ur Specific [place] 1.025 (1.001-1.035) Urine Protein NEGATIVE (NEGATIVE) mg/dL Urine Glucose (UA) NEGATIVE (NEGATIVE) mg/dL Urine Ketones NEGATIVE (NEGATIVE) mg/dL Urine Occult Blood NEGATIVE (NEGATIVE) Urine Nitrite NEGATIVE (NEGATIVE) Urine Bilirubin NEGATIVE (NEGATIVE) Urine Urobilinogen 2.0 H (<2.0) EU/dL Ur Leukocyte Esterase NEGATIVE (NEGATIVE) 01/15/19 Range/Units 13:32 WBC (4.0-11.0) K/uL RBC (4.30-5.90) M/uL Hgb (12.0-16.0) g/dL Hct (36.0-46.0) % MCV (80.0-98.0) fL MCH (27.0-32.0) pg MCHC (31.0-37.0) g/dL RDW Std Deviation (28.0-62.0) fl RDW Coeff of [place] (11.0-15.0) % Plt Count (150-400) K/uL MPV (7.40-12.00) fL Neut % (Auto) (48.0-80.0) % Lymph % (Auto) (16.0-40.0) % [place] % (Auto) (0.0-15.0) % Eos % (Auto) (0.0-7.0) % Baso % (Auto) (0.0-1.5) % Neut # (Auto) (1.4-5.7) K/uL Lymph # (Auto) (0.6-2.4) K/uL [place] # (Auto) (0.0-0.8) K/uL Eos # (Auto) (0.0-0.7) K/uL Baso # (Auto) (0.0-0.1) K/uL Nucleated RBC % /100WBC Nucleated RBCs # K/uL INR Sodium 132 L (136-145) mmol/L Potassium 4.0 (3.5-5.1) mmol/L Chloride 95 L (98-107) mmol/L Carbon Dioxide 31.0 (21.0-32.0) mmol/L BUN 9 (7.0-18.0) mg/dL Creatinine 0.7 (0.6-1.0) mg/dL Est Cr Clr Drug Dosing 87.15 mL/min Estimated GFR (MDRD) > 60.0 ml/min Glucose 106 (74-106) mg/dL Calcium 9.0 (8.5-10.1) mg/dL Total Bilirubin 0.4 (0.2-1.0) mg/dL AST 120 H (15-37) IU/L ALT 11 L (14-63) IU/L Alkaline Phosphatase 233 H (46-116) U/L Troponin I < 0.050 (0.000-0.056) ng/mL Total Protein 7.3 (6.4-8.2) g/dL Albumin 2.1 L (3.4-5.0) g/dL Globulin 5.2 H (2.6-4.0) g/dL Albumin/Globulin Ratio 0.4 L (0.9-1.6) Lipase 29 L (73-393) U/L Urine Color Urine Appearance Urine pH (5.0-8.0) Ur Specific [place] (1.001-1.035) Urine Protein (NEGATIVE) mg/dL Urine Glucose (UA) (NEGATIVE) mg/dL Urine Ketones (NEGATIVE) mg/dL Urine Occult Blood (NEGATIVE) Urine Nitrite (NEGATIVE) Urine Bilirubin (NEGATIVE) Urine Urobilinogen (<2.0) EU/dL Ur Leukocyte Esterase (NEGATIVE) Meds: Medications Discontinued Medications Generic Name Dose Route Start Last Admin Trade Name Freq PRN Reason Stop Dose Admin Hydromorphone HCl 1 mg 01/15/19 13:42 01/15/19 13:54 Dilaudid IVPUSH 01/15/19 13:43 1 mg ONETIME ONE Administration Departure - Departure Time of Disposition: 14:50 Disposition: Refer to Observation Condition: Poor Clinical Impression: Metastatic cancer Abdominal pain Qualifiers: Abdominal location: right upper quadrant Qualified Code(s): R10.11 - Right upper quadrant pain - Discharge Information Forms: ED Department Discharge - My Orders Last 24 Hours: My Active Orders 01/15/19 12:57 EKG Documentation Completion [RC] STAT - Assessment/Plan Last 24 Hours: My Active Orders 01/15/19 12:57 EKG Documentation Completion [RC] STAT
[2019-01-15] MEDS ORDERED: HYDROmorphone 1 MG/ML Syringe IVPUSH ONE (13:42)
--- NOTE | 2019-01-15 13:56 | CR ---
Abdomen: Supine and upright views of the abdomen were obtained. Comparison: No prior abdominal x-ray, previous CT abdomen and pelvis exam of 03/14. Liver is enlarged. Bowel gas pattern is normal. Calcifications are seen within the pelvis. Scoliosis and degenerative change is scattered within the spine. Impression: 1. Hepatomegaly. 2. Other findings believed to be incidental. 2. Nothing acute is otherwise seen. Diagnostic code #3 MTDD
[2019-01-15 14:23] LABS: BLOOD UREA NITROGEN,BUN 9 mg/dL (7.0-18.0); CHLORIDE,CL 95 mmol/L (98-107); GLUCOSE RANDOM 106 mg/dL (74-106); LIPASE 29 U/L (73-393); SODIUM,NA 132 mmol/L (136-145)
[2019-01-15] MEDS ORDERED: Sodium Chloride 0.9% 1,000 ML IV SCH (15:00)
--- NOTE | 2019-01-15 15:20 | PCM.HP.2 ---
H&P History of Present Illness - General Date of Service: 01/15/19 Admit Problem/Dx: Admission Diagnosis/Problem Admission Diagnosis/Problem Abdominal pain Source of Information: Patient, Old Records History Limitations: Reports: No Limitations - History of Present Illness Initial Comments - Free Text/Narative: This 53 year old female with pmh of stage IV metastatic colon cancer with mets to lung, liver and peritoneum presented to the ED with complaints of abdominal pain. Her and her report the Oxycodone is not helping her pain. She denies chest pain or SOB at home. No urinary complaints. Complains of constipation, no BM in the last 2 days. Reports increased pain to lower back. She did take Miralax today to help with constipation. She denies fevers, chills , sore throat or sinus congestion. She recently had liver biopsy to explore further treatment with Oncology so decision yet has been made regarding when this would be starting. Int he ED leukocytosis noted at 16,720, hgb 8.6, platelets 510, Na 132, Cl 95, BUN 9 and Cr 0.7. Abdominal Xray reveals hepatomegaly. UA negative. Previous imaging obtained 1 week ago revealed increasing pulmonary nodules as well as progression in carcinomatosis. abdomen Pain Score (Numeric/FACES): 9 - Related Data Allergies/Adverse Reactions: Allergies Allergy/AdvReac Type Severity Reaction Status Date / Time Penicillins Allergy Hives Verified 01/15/19 16:35 phenobarbital Allergy Other Verified 01/15/19 16:35 phenytoin [From Dilantin] Allergy Hives Verified 01/15/19 16:35 Home Medications: Home Meds Ondansetron [Zofran] 8 mg PO Q8H PRN 07/07/18 [History] Prochlorperazine Maleate [Compazine] 10 mg PO TID 07/07/18 [History] amLODIPine [Norvasc] 5 mg PO DAILY 07/07/18 [History] oxyCODONE 10 mg PO Q6H PRN 07/07/18 [History] Albuterol Sulfate [Proair Hfa] 2 puff IH Q4H PRN 01/05/19 [History] fentaNYL [Duragesic] 1 patch TD Q72H 01/05/19 [History] Levofloxacin [Levaquin] 500 mg PO DAILY #7 tablet 01/08/19 [Rx] Past Medical History HEENT History: Reports: None Cardiovascular History: Reports: Hypertension Respiratory History: Reports: COPD Gastrointestinal History: Reports: None Genitourinary History: Reports: None 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: Reports: 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 Musculoskeletal History: Reports: None Other Musculoskeletal History: chronic abdominal pain Neurological History: Reports: Seizure Psychiatric History: Reports: None Endocrine/Metabolic History: Reports: None Hematologic History: Reports: None Immunologic History: Reports: None Oncologic (Cancer) History: Reports: Colon, Liver Dermatologic History: Reports: None - Infectious Disease History Infectious Disease History: Reports: None Other Infectious Disease History: reports taking interfuron and is cleared - Past Surgical History Head Surgeries/Procedures: Reports: None HEENT Surgical History: Reports: None Cardiovascular Surgical History: Reports: None Respiratory Surgical History: Reports: None GI Surgical History: Reports: None Female Surgical History: Reports: None Endocrine Surgical History: Reports: None Neurological Surgical History: Reports: None Musculoskeletal Surgical History: Reports: None Oncologic Surgical History: Reports: None Dermatological Surgical History: Reports: None Social & Family History - Family History Family Medical History: Noncontributory : Reports: Other (See Below) Other Family History: patient states mother has urostomy bag. Neurological: Reports: Migraines, Seizure Psychiatric: Reports: Bipolar, Depression Oncologic: Reports: Lung - Tobacco Use Smoking Status *Q: Never Smoker Second Hand Smoke Exposure: No - Caffeine Use Caffeine Use: Reports: None - Recreational Drug Use Recreational Drug Use: No H&P Review of Systems - Review of Systems: Review Of Systems: See Below General: Reports: Malaise, Weakness, Fatigue. Denies: Fever, Chills HEENT: Reports: No Symptoms. Denies: Ear Pain, Headaches, Sinus Congestion, Sore Throat, Vertigo, Visual Changes Pulmonary: Reports: No Symptoms. Denies: Shortness of Breath, Pleuritic Chest Pain, Cough, Sputum, Hemoptysis Cardiovascular: Reports: No Symptoms. Denies: Chest Pain, Edema Gastrointestinal: Reports: Abdominal Pain, Constipation, Decreased Appetite. Denies: Black Stool, Bloody Stool, Nausea, Vomiting Genitourinary: Reports: No Symptoms. Denies: Dysuria, Frequency, Burning Musculoskeletal: Reports: No Symptoms. Denies: Neck Pain Skin: Reports: No Symptoms Psychiatric: Reports: No Symptoms Neurological: Reports: No Symptoms Hematologic/Lymphatic: Reports: No Symptoms Immunologic: Reports: No Symptoms Exam - Exam Exam: See Below - Vital Signs Vital Signs: Last Vital Signs Temp 97.1 F 01/15/19 14:55 Pulse 93 01/15/19 14:55 Resp 18 01/15/19 12:54 BP 114/69 01/15/19 14:55 Pulse Ox 96 01/15/19 14:55 Weight: 58.06 kg - Exam General: Alert, Oriented, Other (pale/ cachectic) HEENT: No: Mucosa Moist & [place] (dry) Neck: Supple, Trachea Midline Lungs: Clear to Auscultation, Normal Respiratory Effort GI/Abdominal Exam: Soft, Distended, Tender, Hepatomegaly. No: Normal Bowel Sounds Extremities: Normal Inspection, Normal Range of Motion, Non-Tender, No Pedal Edema Skin: Warm, Dry Neuro Extensive - Mental Status: Alert. No: Oriented x3 (intermittent drowsiness) Neuro Extensive - Motor, Sensory, Reflexes: CN II-XII Intact Psychiatric: Alert, Normal Affect, Normal Mood - Patient Data Lab Results Last 24 hrs: Laboratory Results - last 24 hr 01/15/19 01/15/19 01/15/19 Range/Units 12:58 13:32 13:32 WBC 16.72 H (4.0-11.0) K/uL RBC 3.60 L (4.30-5.90) M/uL Hgb 8.6 L (12.0-16.0) g/dL Hct 27.8 L (36.0-46.0) % MCV 77.2 L (80.0-98.0) fL MCH 23.9 L (27.0-32.0) pg MCHC 30.9 L (31.0-37.0) g/dL RDW Std Deviation 58.1 (28.0-62.0) fl RDW Coeff of [place] 21 H (11.0-15.0) % Plt Count 510 H (150-400) K/uL MPV 8.40 (7.40-12.00) fL Neut % (Auto) 77.2 (48.0-80.0) % Lymph % (Auto) 9.6 L (16.0-40.0) % [place] % (Auto) 12.4 (0.0-15.0) % Eos % (Auto) 0.7 (0.0-7.0) % Baso % (Auto) 0.1 (0.0-1.5) % Neut # (Auto) 12.9 H (1.4-5.7) K/uL Lymph # (Auto) 1.6 (0.6-2.4) K/uL [place] # (Auto) 2.1 H (0.0-0.8) K/uL Eos # (Auto) 0.1 (0.0-0.7) K/uL Baso # (Auto) 0.0 (0.0-0.1) K/uL Nucleated RBC % 0.0 /100WBC Nucleated RBCs # 0 K/uL INR 1.22 Sodium (136-145) mmol/L Potassium (3.5-5.1) mmol/L Chloride (98-107) mmol/L Carbon Dioxide (21.0-32.0) mmol/L BUN (7.0-18.0) mg/dL Creatinine (0.6-1.0) mg/dL Est Cr Clr Drug Dosing mL/min Estimated GFR (MDRD) ml/min Glucose (74-106) mg/dL Calcium (8.5-10.1) mg/dL Total Bilirubin (0.2-1.0) mg/dL AST (15-37) IU/L ALT (14-63) IU/L Alkaline Phosphatase (46-116) U/L Troponin I (0.000-0.056) ng/mL Total Protein (6.4-8.2) g/dL Albumin (3.4-5.0) g/dL Globulin (2.6-4.0) g/dL Albumin/Globulin Ratio (0.9-1.6) Lipase (73-393) U/L Urine Color YELLOW Urine Appearance CLEAR Urine pH 6.0 (5.0-8.0) Ur Specific [place] 1.025 (1.001-1.035) Urine Protein NEGATIVE (NEGATIVE) mg/dL Urine Glucose (UA) NEGATIVE (NEGATIVE) mg/dL Urine Ketones NEGATIVE (NEGATIVE) mg/dL Urine Occult Blood NEGATIVE (NEGATIVE) Urine Nitrite NEGATIVE (NEGATIVE) Urine Bilirubin NEGATIVE (NEGATIVE) Urine Urobilinogen 2.0 H (<2.0) EU/dL Ur Leukocyte Esterase NEGATIVE (NEGATIVE) 01/15/19 Range/Units 13:32 WBC (4.0-11.0) K/uL RBC (4.30-5.90) M/uL Hgb (12.0-16.0) g/dL Hct (36.0-46.0) % MCV (80.0-98.0) fL MCH (27.0-32.0) pg MCHC (31.0-37.0) g/dL RDW Std Deviation (28.0-62.0) fl RDW Coeff of [place] (11.0-15.0) % Plt Count (150-400) K/uL MPV (7.40-12.00) fL Neut % (Auto) (48.0-80.0) % Lymph % (Auto) (16.0-40.0) % [place] % (Auto) (0.0-15.0) % Eos % (Auto) (0.0-7.0) % Baso % (Auto) (0.0-1.5) % Neut # (Auto) (1.4-5.7) K/uL Lymph # (Auto) (0.6-2.4) K/uL [place] # (Auto) (0.0-0.8) K/uL Eos # (Auto) (0.0-0.7) K/uL Baso # (Auto) (0.0-0.1) K/uL Nucleated RBC % /100WBC Nucleated RBCs # K/uL INR Sodium 132 L (136-145) mmol/L Potassium 4.0 (3.5-5.1) mmol/L Chloride 95 L (98-107) mmol/L Carbon Dioxide 31.0 (21.0-32.0) mmol/L BUN 9 (7.0-18.0) mg/dL Creatinine 0.7 (0.6-1.0) mg/dL Est Cr Clr Drug Dosing 87.15 mL/min Estimated GFR (MDRD) > 60.0 ml/min Glucose 106 (74-106) mg/dL Calcium 9.0 (8.5-10.1) mg/dL Total Bilirubin 0.4 (0.2-1.0) mg/dL AST 120 H (15-37) IU/L ALT 11 L (14-63) IU/L Alkaline Phosphatase 233 H (46-116) U/L Troponin I < 0.050 (0.000-0.056) ng/mL Total Protein 7.3 (6.4-8.2) g/dL Albumin 2.1 L (3.4-5.0) g/dL Globulin 5.2 H (2.6-4.0) g/dL Albumin/Globulin Ratio 0.4 L (0.9-1.6) Lipase 29 L (73-393) U/L Urine Color Urine Appearance Urine pH (5.0-8.0) Ur Specific [place] (1.001-1.035) Urine Protein (NEGATIVE) mg/dL Urine Glucose (UA) (NEGATIVE) mg/dL Urine Ketones (NEGATIVE) mg/dL Urine Occult Blood (NEGATIVE) Urine Nitrite (NEGATIVE) Urine Bilirubin (NEGATIVE) Urine Urobilinogen (<2.0) EU/dL Ur Leukocyte Esterase (NEGATIVE) Result Diagrams: 01/15/19 13:32 01/15/19 13:32 - Problem List (1) AMS (altered mental status) SNOMED Code(s): 816924213 ICD Code: R41.82 - ALTERED MENTAL STATUS, UNSPECIFIED Status: Acute Current Visit: Yes (2) Leukocytosis SNOMED Code(s): 835120697, 814961852 ICD Code: D72.829 - ELEVATED WHITE BLOOD CELL COUNT, UNSPECIFIED Status: Acute Current Visit: Yes (3) Colon cancer metastasized to liver SNOMED Code(s): 696252048, 184879733 ICD Code: C18.9 - MALIGNANT NEOPLASM OF COLON, UNSPECIFIED; C78.7 - SECONDARY MALIG NEOPLASM OF LIVER AND INTRAHEPATIC BILE DUCT Status: Acute Current Visit: Yes (4) Abdominal pain SNOMED Code(s): 98607205 ICD Code: R10.9 - UNSPECIFIED ABDOMINAL PAIN Status: Acute Current Visit : Yes Qualifiers: Abdominal location: right upper quadrant Qualified Code(s): R10.11 - Right upper quadrant pain (5) Metastatic cancer SNOMED Code(s): 550718074 ICD Code: C79.9 - SECONDARY MALIGNANT NEOPLASM OF UNSPECIFIED SITE Status: Acute Current Visit: Yes Problem List Initiated/Reviewed/Updated: Yes Orders Last 24hrs: Active Orders 24 hr Category Date Time Status Admission Status [Patient Status] [ADT] Stat ADT 01/15/19 14:50 Active EKG Documentation Completion [RC] STAT Care 01/15/19 12:57 Active Sodium Chloride 0.9% [Normal Saline] 1,000 ml Med 01/15/19 15:00 Active IV STAT Medication Orders Sodium Chloride (Normal Saline) 1,000 mls @ 125 mls/hr IV STAT KEVIN Last Admin: 01/15/19 15:07 Dose: 125 mls/hr Assessment/Plan Comment:: This 53 year old female with metastatic colon cancer presented with uncontrolled abdominal pain and leukocytosis 1. Leukocytosis: will obtained BC and lactic acid. Continue IVFs for now. Will start Levaquin 750 mg IV while ruling out infection. UA negative. CXR pending. 2. Metastatic colon cancer: Obtain head CT to evaluate some confusion per . Increase pain medication, increase Fentanyl to 125 mcg patch as well as increase breakthrough Oxycodone 20 mg every 4 hours PRN pain. VTE prophylaxis: Heparin We did discuss code status at length, patient and currently express wanting FULL CODE given description of poor prognosis with stage IV colon cancer. - Mortality Measure Prognosis:: Poor
[2019-01-15] MEDS ORDERED: Albuterol/Ipratropium 3.0-0.5 MG/3 ML Neb Soln NEB PRN (15:50)
[2019-01-15] MEDS ORDERED: Bisacodyl 10 MG Supp RECTAL PRN (15:50)
[2019-01-15] MEDS ORDERED: Pantoprazole 40 MG Vial IV SCH (16:00)
[2019-01-15] MEDS ORDERED: fentaNYL 100 MCG/HR Transdermal Patch TRDERM SCH (16:00)
[2019-01-15] MEDS ORDERED: cefTRIAXone 1 GM Vial IVPUSH SCH (16:30)
--- NOTE | 2019-01-15 16:55 | CR ---
Chest: AP portable view of the chest is obtained. Comparison: Prior chest x-ray of 01/05/19. New nodule is identified within the left mid to lower lung. This nodule measures approximately 1 cm. Second nodule is seen within the right mid to upper lung measuring 6-7 mm. Second nodule is also suggested within the right upper lung measuring 6 mm. Lungs otherwise are clear. Right-sided infusion catheter is seen. Heart size and mediastinum are normal. Bony structures are grossly intact. Impression: 1. Nodules within the chest suspicious for metastatic disease. This is an interval change from prior chest x-ray. 2. Stable infusion catheter. 3. Nothing acute is otherwise seen. Diagnostic code #9 MTDD
[2019-01-15] MEDS ORDERED: fentaNYL 25 MCG/HR Transdermal Patch TRDERM SCH (17:00)
[2019-01-15] MEDS: Pantoprazole 40 MG in Sodium Chloride 0.9% 10 ML IV SCH (17:42)
[2019-01-15] MEDS: Heparin Sodium 5,000 Units/ML Vial SUBCUT SCH (17:44)
[2019-01-15] MEDS: Levofloxacin/Dextrose 5%-Water 750 MG in Premix Bag 1 BAG IV SCH (17:53)
[2019-01-15] MEDS ORDERED: FLU Vacc QS2019-20(6MOS+)/PF 60 MCG/0.5 ML SYRINGE IM ONE (18:30)
[2019-01-15] MEDS: Ondansetron 4 MG/2 ML SDV IVPUSH PRN (19:44)
[2019-01-15] MEDS: HYDROmorphone 1 MG/ML Syringe IVPUSH PRN ×2 (19:44→23:55)
--- NOTE | 2019-01-15 20:08 | CT ---
INDICATION: Confusion, colon cancer, dizziness TECHNIQUE: CT head without contrast. COMPARISON: None FINDINGS: CSF spaces: Within normal limits for age. Brain parenchyma: The padilla-white differentiation is normal. No sign of mass, hemorrhage, or midline shift. Skull base and calvarium: The visualized paranasal sinuses and mastoid air cells demonstrate no acute or significant findings. The visualized orbits are grossly unremarkable. No skull fractures. IMPRESSION: Unremarkable noncontrast head CT. Dictated by Willie Kearney MD @ 01/15/2019 8:05:12 PM Please note that all CT scans at this facility use dose modulation, iterative reconstruction, and/or weight-based dosing when appropriate to reduce radiation dose to as low as reasonably achievable. Dictated by: Willie Kearney MD @ 01/15/2019 20:05:16 (Electronically Signed)
[2019-01-15] MEDS: Docusate Sodium 100 MG Cap PO SCH (21:10)
[2019-01-15] MEDS: oxyCODONE 5 MG Tab PO PRN (21:10)
[2019-01-15] MEDS: Prochlorperazine 10 MG Tab PO SCH (21:10)
[2019-01-15] MEDS: Sodium Chloride 0.9% 1,000 ML IV SCH ×2 (23:54→23:55)
[2019-01-16] MEDS: oxyCODONE 5 MG Tab PO PRN ×4 (01:58→22:52)
[2019-01-16 04:44] LABS: BLOOD UREA NITROGEN,BUN 7 mg/dL (7.0-18.0); CARBON DIOXIDE,CO2 29.2 mmol/L (21.0-32.0); CHLORIDE,CL 96 mmol/L (98-107); GLUCOSE RANDOM 88 mg/dL (74-106); POTASSIUM,K 3.8 mmol/L (3.5-5.1); SODIUM,NA 132 mmol/L (136-145)
[2019-01-16] MEDS: Heparin Sodium 5,000 Units/ML Vial SUBCUT SCH ×2 (05:34→17:35)
[2019-01-16] MEDS: Prochlorperazine 10 MG Tab PO SCH ×3 (05:34→21:08)
[2019-01-16] MEDS: Sodium Chloride 0.9% 1,000 ML IV SCH ×2 (07:46→17:22)
--- NOTE | 2019-01-16 08:32 | PCM.PN ---
- General Info Date of Service: 01/16/19 Admission Dx/Problem (Free Text): Admission Diagnosis/Problem Admission Diagnosis/Problem Abdominal pain Subjective Update: Continues to have abdominal pain and continues to be very sleepy. at bedside. Only complains of abdominal pain Functional Status: Reports: Tolerating Diet, Ambulating, Urinating. Denies: Pain Controlled - Review of Systems General: Reports: Weakness, Fatigue HEENT: Reports: No Symptoms. Denies: Headaches, Visual Changes Pulmonary: Reports: No Symptoms. Denies: Shortness of Breath Cardiovascular: Reports: No Symptoms. Denies: Chest Pain Gastrointestinal: Reports: Abdominal Pain, Nausea Genitourinary: Reports: No Symptoms. Denies: Dysuria, Frequency, Burning Neurological: Reports: Confusion Psychiatric: Reports: No Symptoms - Patient Data Vitals - Most Recent: Last Vital Signs Temp 97.7 F 01/16/19 04:00 Pulse 95 01/16/19 04:00 Resp 14 01/16/19 04:00 BP 115/72 01/16/19 04:00 Pulse Ox 92 L 01/16/19 04:00 Weight - Most Recent: 58.06 kg I&O - Last 24 Hours: Intake & Output 01/15/19 01/16/19 01/16/19 22:59 06:59 14:59 Intake Total 2601 Output Total 250 Balance 2351 Lab Results Last 24 Hours: Laboratory Results - last 24 hr 01/15/19 01/15/19 01/15/19 Range/Units 12:58 13:32 13:32 WBC 16.72 H (4.0-11.0) K/uL RBC 3.60 L (4.30-5.90) M/uL Hgb 8.6 L (12.0-16.0) g/dL Hct 27.8 L (36.0-46.0) % MCV 77.2 L (80.0-98.0) fL MCH 23.9 L (27.0-32.0) pg MCHC 30.9 L (31.0-37.0) g/dL RDW Std Deviation 58.1 (28.0-62.0) fl RDW Coeff of Clement[place] 21 H (11.0-15.0) % Plt Count 510 H (150-400) K/uL MPV 8.40 (7.40-12.00) fL Neut % (Auto) 77.2 (48.0-80.0) % Lymph % (Auto) 9.6 L (16.0-40.0) % [place] % (Auto) 12.4 (0.0-15.0) % Eos % (Auto) 0.7 (0.0-7.0) % Baso % (Auto) 0.1 (0.0-1.5) % Neut # (Auto) 12.9 H (1.4-5.7) K/uL Lymph # (Auto) 1.6 (0.6-2.4) K/uL [place] # (Auto) 2.1 H (0.0-0.8) K/uL Eos # (Auto) 0.1 (0.0-0.7) K/uL Baso # (Auto) 0.0 (0.0-0.1) K/uL Nucleated RBC % 0.0 /100WBC Nucleated RBCs # 0 K/uL INR 1.22 Lactate (0.20-2.00) mmol/L Sodium (136-145) mmol/L Potassium (3.5-5.1) mmol/L Chloride (98-107) mmol/L Carbon Dioxide (21.0-32.0) mmol/L BUN (7.0-18.0) mg/dL Creatinine (0.6-1.0) mg/dL Est Cr Clr Drug Dosing mL/min Estimated GFR (MDRD) ml/min Glucose (74-106) mg/dL Calcium (8.5-10.1) mg/dL Total Bilirubin (0.2-1.0) mg/dL AST (15-37) IU/L ALT (14-63) IU/L Alkaline Phosphatase (46-116) U/L Troponin I (0.000-0.056) ng/mL Total Protein (6.4-8.2) g/dL Albumin (3.4-5.0) g/dL Globulin (2.6-4.0) g/dL Albumin/Globulin Ratio (0.9-1.6) Lipase (73-393) U/L Urine Color YELLOW Urine Appearance CLEAR Urine pH 6.0 (5.0-8.0) Ur Specific [place] 1.025 (1.001-1.035) Urine Protein NEGATIVE (NEGATIVE) mg/dL Urine Glucose (UA) NEGATIVE (NEGATIVE) mg/dL Urine Ketones NEGATIVE (NEGATIVE) mg/dL Urine Occult Blood NEGATIVE (NEGATIVE) Urine Nitrite NEGATIVE (NEGATIVE) Urine Bilirubin NEGATIVE (NEGATIVE) Urine Urobilinogen 2.0 H (<2.0) EU/dL Ur Leukocyte Esterase NEGATIVE (NEGATIVE) 01/15/19 01/15/19 01/15/19 Range/Units 13:32 17:30 22:50 WBC (4.0-11.0) K/uL RBC (4.30-5.90) M/uL Hgb (12.0-16.0) g/dL Hct (36.0-46.0) % MCV (80.0-98.0) fL MCH (27.0-32.0) pg MCHC (31.0-37.0) g/dL RDW Std Deviation (28.0-62.0) fl RDW Coeff of Clement[place] (11.0-15.0) % Plt Count (150-400) K/uL MPV (7.40-12.00) fL Neut % (Auto) (48.0-80.0) % Lymph % (Auto) (16.0-40.0) % [place] % (Auto) (0.0-15.0) % Eos % (Auto) (0.0-7.0) % Baso % (Auto) (0.0-1.5) % Neut # (Auto) (1.4-5.7) K/uL Lymph # (Auto) (0.6-2.4) K/uL [place] # (Auto) (0.0-0.8) K/uL Eos # (Auto) (0.0-0.7) K/uL Baso # (Auto) (0.0-0.1) K/uL Nucleated RBC % /100WBC Nucleated RBCs # K/uL INR Lactate 3.1 H 1.9 (0.20-2.00) mmol/L Sodium 132 L (136-145) mmol/L Potassium 4.0 (3.5-5.1) mmol/L Chloride 95 L (98-107) mmol/L Carbon Dioxide 31.0 (21.0-32.0) mmol/L BUN 9 (7.0-18.0) mg/dL Creatinine 0.7 (0.6-1.0) mg/dL Est Cr Clr Drug Dosing 87.15 mL/min Estimated GFR (MDRD) > 60.0 ml/min Glucose 106 (74-106) mg/dL Calcium 9.0 (8.5-10.1) mg/dL Total Bilirubin 0.4 (0.2-1.0) mg/dL AST 120 H (15-37) IU/L ALT 11 L (14-63) IU/L Alkaline Phosphatase 233 H (46-116) U/L Troponin I < 0.050 (0.000-0.056) ng/mL Total Protein 7.3 (6.4-8.2) g/dL Albumin 2.1 L (3.4-5.0) g/dL Globulin 5.2 H (2.6-4.0) g/dL Albumin/Globulin Ratio 0.4 L (0.9-1.6) Lipase 29 L (73-393) U/L Urine Color Urine Appearance Urine pH (5.0-8.0) Ur Specific [place] (1.001-1.035) Urine Protein (NEGATIVE) mg/dL Urine Glucose (UA) (NEGATIVE) mg/dL Urine Ketones (NEGATIVE) mg/dL Urine Occult Blood (NEGATIVE) Urine Nitrite (NEGATIVE) Urine Bilirubin (NEGATIVE) Urine Urobilinogen (<2.0) EU/dL Ur Leukocyte Esterase (NEGATIVE) 01/16/19 01/16/19 Range/Units 04:13 04:13 WBC 14.91 H (4.0-11.0) K/uL RBC 3.30 L (4.30-5.90) M/uL Hgb 7.8 L (12.0-16.0) g/dL Hct 25.4 L (36.0-46.0) % MCV 77.0 L (80.0-98.0) fL MCH 23.6 L (27.0-32.0) pg MCHC 30.7 L (31.0-37.0) g/dL RDW Std Deviation 57.6 (28.0-62.0) fl RDW Coeff of [place] 20 H (11.0-15.0) % Plt Count 446 H (150-400) K/uL MPV 8.20 (7.40-12.00) fL Neut % (Auto) 74.6 (48.0-80.0) % Lymph % (Auto) 11.6 L (16.0-40.0) % [place] % (Auto) 12.8 (0.0-15.0) % Eos % (Auto) 0.9 (0.0-7.0) % Baso % (Auto) 0.1 (0.0-1.5) % Neut # (Auto) 11.1 H (1.4-5.7) K/uL Lymph # (Auto) 1.7 (0.6-2.4) K/uL [place] # (Auto) 1.9 H (0.0-0.8) K/uL Eos # (Auto) 0.1 (0.0-0.7) K/uL Baso # (Auto) 0.0 (0.0-0.1) K/uL Nucleated RBC % 0.0 /100WBC Nucleated RBCs # 0 K/uL INR Lactate (0.20-2.00) mmol/L Sodium 132 L (136-145) mmol/L Potassium 3.8 (3.5-5.1) mmol/L Chloride 96 L (98-107) mmol/L Carbon Dioxide 29.2 (21.0-32.0) mmol/L BUN 7 (7.0-18.0) mg/dL Creatinine 0.5 L (0.6-1.0) mg/dL Est Cr Clr Drug Dosing 122.01 mL/min Estimated GFR (MDRD) > 60.0 ml/min Glucose 88 (74-106) mg/dL Calcium 8.4 L (8.5-10.1) mg/dL Total Bilirubin (0.2-1.0) mg/dL AST (15-37) IU/L ALT (14-63) IU/L Alkaline Phosphatase (46-116) U/L Troponin I (0.000-0.056) ng/mL Total Protein (6.4-8.2) g/dL Albumin (3.4-5.0) g/dL Globulin (2.6-4.0) g/dL Albumin/Globulin Ratio (0.9-1.6) Lipase (73-393) U/L Urine Color Urine Appearance Urine pH (5.0-8.0) Ur Specific [place] (1.001-1.035) Urine Protein (NEGATIVE) mg/dL Urine Glucose (UA) (NEGATIVE) mg/dL Urine Ketones (NEGATIVE) mg/dL Urine Occult Blood (NEGATIVE) Urine Nitrite (NEGATIVE) Urine Bilirubin (NEGATIVE) Urine Urobilinogen (<2.0) EU/dL Ur Leukocyte Esterase (NEGATIVE) Fernando Results Last 24 Hours: Microbiology 01/15/19 16:57 Anaerobic Blood Culture - Final Blood - Venous Med Orders - Current: Current Medications Albuterol/Ipratropium (Duoneb 3.0-0.5 Mg/3 Ml) 3 ml NEB Q4HRRT PRN PRN Reason: Shortness Of Breath/wheezing Bisacodyl (Dulcolax) 10 mg RECTAL DAILY PRN PRN Reason: Constipation Last Admin: 01/15/19 17:54 Dose: 10 mg Docusate Sodium (Colace) 100 mg PO BID [facility] Last Admin: 01/15/19 21:10 Dose: 100 mg Fentanyl (Duragesic) 100 mcg TRDERM Q72H [facility] Last Admin: 01/15/19 17:36 Dose: 100 mcg Fentanyl (Duragesic) 25 mcg TRDERM Q72H [facility] Last Admin: 01/15/19 17:37 Dose: 25 mcg Heparin Sodium (Porcine) (Heparin Sodium) 5,000 units SUBCUT Q12H [facility] Last Admin: 01/16/19 05:34 Dose: 5,000 units Hydromorphone HCl (Dilaudid) 1 mg IVPUSH Q4H PRN PRN Reason: Breakthrough Pain Last Admin: 01/15/19 23:55 Dose: 1 mg Pantoprazole Sodium 40 mg/ (Sodium Chloride) 10 mls @ 300 mls/hr IV Q24H [facility] Last Admin: 01/15/19 17:42 Dose: 300 mls/hr Levofloxacin/Dextrose 750 mg/ (Premix) 150 mls @ 100 mls/hr IV Q24H [facility] Last Admin: 01/15/19 17:53 Dose: 100 mls/hr Sodium Chloride (Normal Saline) 1,000 mls @ 125 mls/hr IV Q8H [facility] Last Admin: 01/16/19 07:46 Dose: 125 mls/hr Ondansetron HCl (Zofran) 4 mg IVPUSH Q4H PRN PRN Reason: Nausea Last Admin: 01/15/19 19:44 Dose: 4 mg Oxycodone HCl (Oxycodone) 20 mg PO Q4H PRN PRN Reason: Pain (moderate 4-6) Last Admin: 01/16/19 01:58 Dose: 20 mg Prochlorperazine Maleate (Compazine) 10 mg PO TID [facility] Last Admin: 01/16/19 05:34 Dose: 10 mg Discontinued Medications Ceftriaxone Sodium (Rocephin) 1 gm IVPUSH Q24H [facility] Hydromorphone HCl (Dilaudid) 1 mg IVPUSH ONETIME ONE Stop: 01/15/19 13:43 Last Admin: 01/15/19 13:54 Dose: 1 mg Sodium Chloride (Normal Saline) 1,000 mls @ 125 mls/hr IV STAT [facility] Last Admin: 01/15/19 15:07 Dose: 125 mls/hr Influenza Virus Vaccine (Pharmacy To Dose - Influenza Vaccine) 1 each IM ONETIME ONE Stop: 01/15/19 18:19 Influenza Virus Vaccine (Fluzone Quad Syringe) 60 mcg IM .ONCE ONE Stop: 01/15/19 18:31 Pantoprazole Sodium (Protonix Iv) 40 mg IV Q24H [facility] Last Admin: 01/15/19 17:49 Dose: Not Given - Exam General: Alert, Oriented, Cooperative, No Acute Distress, Other (pallor and cachectic in appearance. Often falling asleep during discussion.) Lungs: Clear to Auscultation, Normal Respiratory Effort Cardiovascular: Regular Rate, Regular Rhythm GI/Abdominal Exam: Distended, Tender, Hepatomegaly Extremities: Normal Inspection, Normal Range of Motion, Non-Tender Neurological: No New Focal Deficit Psy/Mental Status: Alert - Problem List & Annotations (1) AMS (altered mental status) SNOMED Code(s): 550341442 Code(s): R41.82 - ALTERED MENTAL STATUS, UNSPECIFIED Status: Acute Current Visit: Yes (2) Leukocytosis SNOMED Code(s): 050287105, 588844249 Code(s): D72.829 - ELEVATED WHITE BLOOD CELL COUNT, UNSPECIFIED Status: Acute Current Visit: Yes (3) Colon cancer metastasized to liver SNOMED Code(s): 104312468, 069918534 Code(s): C18.9 - MALIGNANT NEOPLASM OF COLON, UNSPECIFIED; C78.7 - SECONDARY MALIG NEOPLASM OF LIVER AND INTRAHEPATIC BILE DUCT Status: Acute Current Visit: Yes (4) Abdominal pain SNOMED Code(s): 65649532 Code(s): R10.9 - UNSPECIFIED ABDOMINAL PAIN Status: Acute Current Visit: Yes Qualifiers: Abdominal location: right upper quadrant Qualified Code(s): R10.11 - Right upper quadrant pain (5) Metastatic cancer SNOMED Code(s): 596612489 Code(s): C79.9 - SECONDARY MALIGNANT NEOPLASM OF UNSPECIFIED SITE Status: Acute Current Visit: Yes - Problem List Review Problem List Initiated/Reviewed/Updated: Yes - My Orders Last 24 Hours: My Active Orders 01/15/19 15:50 Oxygen Therapy [RC] PRN Up With Assistance [RC] ASDIRECTED VTE/DVT Education [RC] PER UNIT ROUTINE Vital Signs [RC] Q4H Albuterol/Ipratropium [DuoNeb 3.0-0.5 MG/3 ML] 3 ml NEB Q4HRRT PRN Bisacodyl [Dulcolax] 10 mg RECTAL DAILY PRN Ondansetron [Zofran] 4 mg IVPUSH Q4H PRN oxyCODONE 20 mg PO Q4H PRN Resuscitation Status Routine 01/15/19 15:52 RT Aerosol Therapy [RC] ASDIRECTED 01/15/19 15:56 HYDROmorphone [Dilaudid] 1 mg IVPUSH Q4H PRN 01/15/19 16:00 fentaNYL [Duragesic] 100 mcg TRDERM Q72H 01/15/19 16:30 Pantoprazole [ProTONIX IV] 40 mg Sodium Chloride 0.9% [Normal Saline] 10 ml IV Q24H 01/15/19 16:45 Sodium Chloride 0.9% [Normal Saline] 1,000 ml IV Q8H 01/15/19 17:00 Heparin Sodium 5,000 units SUBCUT Q12H fentaNYL [Duragesic] 25 mcg TRDERM Q72H 01/15/19 21:00 Docusate Sodium [Colace] 100 mg PO BID 01/15/19 22:00 Prochlorperazine [Compazine] 10 mg PO TID 01/15/19 Dinner Regular Diet [DIET] 01/17/19 05:11 BASIC METABOLIC PANEL,BMP [CHEM] AM CBC WITH AUTO DIFF [HEME] AM 01/18/19 05:11 BASIC METABOLIC PANEL,BMP [CHEM] AM CBC WITH AUTO DIFF [HEME] AM - Plan Plan:: This 53 year old female with metastatic colon cancer presented with uncontrolled abdominal pain and leukocytosis 1. Leukocytosis: Improving. Continue Levaquin 750 mg IV, no obvious source of infection noted. Will continue for now, could be secondary to advancing cancer. 2. Metastatic colon cancer: Head CT negative. Increase Fentanyl to 125 mcg patch and Oxycodone 20 mg every 4 hours PRN pain. Added Dilaudid for pain control as well. Hospice consult VTE prophylaxis: Heparin Dr Quevedo and I had extensive conversation with Saad and her Vadim regarding prognosis and recommendations for code status change and focusing more on comfort versus treatment. It was decided to change code status to DNR/ DNI and they would be willing to speak with Hospice regarding further care at home or at a SNF.
[2019-01-16] MEDS: Docusate Sodium 100 MG Cap PO SCH ×2 (09:25→21:08)
[2019-01-16] MEDS ORDERED: Ketorolac 30 MG/ML SDV IVPUSH PRN (10:54)
[2019-01-16] MEDS: Levofloxacin/Dextrose 5%-Water 750 MG in Premix Bag 1 BAG IV SCH (15:38)
[2019-01-16] MEDS: Pantoprazole 40 MG in Sodium Chloride 0.9% 10 ML IV SCH (15:45)
[2019-01-17] MEDS: Sodium Chloride 0.9% 1,000 ML IV SCH ×3 (00:59→16:30)
[2019-01-17] MEDS: Heparin Sodium 5,000 Units/ML Vial SUBCUT SCH (04:55)
[2019-01-17] MEDS: Prochlorperazine 10 MG Tab PO SCH ×4 (05:00→22:09)
[2019-01-17] MEDS: oxyCODONE 5 MG Tab PO PRN ×4 (05:00→23:02)
[2019-01-17 05:28] LABS: BLOOD UREA NITROGEN,BUN 6 mg/dL (7.0-18.0); CARBON DIOXIDE,CO2 25.2 mmol/L (21.0-32.0); CHLORIDE,CL 97 mmol/L (98-107); GLUCOSE RANDOM 79 mg/dL (74-106); POTASSIUM,K 3.8 mmol/L (3.5-5.1); SODIUM,NA 131 mmol/L (136-145)
[2019-01-17] MEDS: Docusate Sodium 100 MG Cap PO SCH ×2 (09:00→20:04)
--- NOTE | 2019-01-17 11:53 | PCM.PN ---
- General Info Date of Service: 01/17/19 Admission Dx/Problem (Free Text): Admission Diagnosis/Problem Admission Diagnosis/Problem Abdominal pain Subjective Update: pain better controlled. No concerns this morning. Still deciding on liver biopsy. Functional Status: Reports: Pain Controlled - Review of Systems General: Reports: Weakness, Malaise Pulmonary: Reports: No Symptoms. Denies: Shortness of Breath Cardiovascular: Reports: No Symptoms. Denies: Chest Pain Gastrointestinal: Reports: Abdominal Pain (RUQ). Denies: Nausea, Vomiting Genitourinary: Reports: No Symptoms Musculoskeletal: Reports: No Symptoms Skin: Reports: No Symptoms Neurological: Reports: No Symptoms - Patient Data Vitals - Most Recent: Last Vital Signs Temp 98.3 F 01/17/19 07:47 Pulse 96 01/17/19 07:47 Resp 18 01/17/19 07:47 BP 124/75 01/17/19 07:47 Pulse Ox 94 L 01/17/19 07:47 Weight - Most Recent: 58.06 kg I&O - Last 24 Hours: Intake & Output 01/16/19 01/17/19 01/17/19 22:59 06:59 14:59 Intake Total 1915 1834 Output Total 950 1050 Balance 965 784 Lab Results Last 24 Hours: Laboratory Results - last 24 hr 01/17/19 01/17/19 Range/Units 04:55 04:55 WBC 14.32 H (4.0-11.0) K/uL RBC 3.35 L (4.30-5.90) M/uL Hgb 7.8 L (12.0-16.0) g/dL Hct 26.0 L (36.0-46.0) % MCV 77.6 L (80.0-98.0) fL MCH 23.3 L (27.0-32.0) pg MCHC 30.0 L (31.0-37.0) g/dL RDW Std Deviation 57.8 (28.0-62.0) fl RDW Coeff of [place] 21 H (11.0-15.0) % Plt Count 379 (150-400) K/uL MPV 8.90 (7.40-12.00) fL Add Manual Diff YES Neutrophils % (Manual) 83 H (48.0-80.0) % Band Neutrophils % 2 % Lymphocytes % (Manual) 9 L (16.0-40.0) % Monocytes % (Manual) 6 (0.0-15.0) % Nucleated RBC % 0.0 /100WBC Absolute Seg Neuts 11.9 H (1.4-5.7) Band Neutrophils # 0.3 Lymphocytes # (Manual) 1.3 (0.6-2.4) Monocytes # (Manual) 0.9 H (0.0-0.8) Nucleated RBCs # 0 K/uL Sodium 131 L (136-145) mmol/L Potassium 3.8 (3.5-5.1) mmol/L Chloride 97 L (98-107) mmol/L Carbon Dioxide 25.2 (21.0-32.0) mmol/L BUN 6 L (7.0-18.0) mg/dL Creatinine 0.5 L (0.6-1.0) mg/dL Est Cr Clr Drug Dosing 122.01 mL/min Estimated GFR (MDRD) > 60.0 ml/min Glucose 79 (74-106) mg/dL Calcium 8.5 (8.5-10.1) mg/dL Fernando Results Last 24 Hours: Microbiology 01/15/19 17:30 Aerobic Blood Culture - Preliminary Blood - Venous - Lab Draw NO GROWTH AFTER 1 DAY Anaerobic Blood Culture - Preliminary NO GROWTH AFTER 1 DAY 01/15/19 16:57 Aerobic Blood Culture - Preliminary Blood - Venous NO GROWTH AFTER 1 DAY Anaerobic Blood Culture - Final Med Orders - Current: Current Medications Albuterol/Ipratropium (Duoneb 3.0-0.5 Mg/3 Ml) 3 ml NEB Q4HRRT PRN PRN Reason: Shortness Of Breath/wheezing Bisacodyl (Dulcolax) 10 mg RECTAL DAILY PRN PRN Reason: Constipation Last Admin: 01/15/19 17:54 Dose: 10 mg Docusate Sodium (Colace) 100 mg PO BID [facility] Last Admin: 01/17/19 09:00 Dose: 100 mg Fentanyl (Duragesic) 100 mcg TRDERM Q72H [facility] Last Admin: 01/15/19 17:36 Dose: 100 mcg Fentanyl (Duragesic) 25 mcg TRDERM Q72H [facility] Last Admin: 01/15/19 17:37 Dose: 25 mcg Heparin Sodium (Porcine) (Heparin Sodium) 5,000 units SUBCUT Q12H [facility] Last Admin: 01/17/19 04:55 Dose: 5,000 units Hydromorphone HCl (Dilaudid) 1 mg IVPUSH Q4H PRN PRN Reason: Breakthrough Pain Last Admin: 01/15/19 23:55 Dose: 1 mg Pantoprazole Sodium 40 mg/ (Sodium Chloride) 10 mls @ 300 mls/hr IV Q24H [facility] Last Admin: 01/16/19 15:45 Dose: 300 mls/hr Levofloxacin/Dextrose 750 mg/ (Premix) 150 mls @ 100 mls/hr IV Q24H [facility] Last Admin: 01/16/19 15:38 Dose: 100 mls/hr Sodium Chloride (Normal Saline) 1,000 mls @ 125 mls/hr IV Q8H [facility] Last Admin: 01/17/19 08:59 Dose: 125 mls/hr Ketorolac Tromethamine (Toradol) 30 mg IVPUSH Q6H PRN PRN Reason: Pain Stop: 01/21/19 10:55 Ondansetron HCl (Zofran) 4 mg IVPUSH Q4H PRN PRN Reason: Nausea Last Admin: 01/15/19 19:44 Dose: 4 mg Oxycodone HCl (Oxycodone) 20 mg PO Q4H PRN PRN Reason: Pain (moderate 4-6) Last Admin: 01/17/19 10:57 Dose: 20 mg Prochlorperazine Maleate (Compazine) 10 mg PO TID [facility] Last Admin: 01/17/19 05:00 Dose: 10 mg Discontinued Medications Ceftriaxone Sodium (Rocephin) 1 gm IVPUSH Q24H [facility] Hydromorphone HCl (Dilaudid) 1 mg IVPUSH ONETIME ONE Stop: 01/15/19 13:43 Last Admin: 01/15/19 13:54 Dose: 1 mg Sodium Chloride (Normal Saline) 1,000 mls @ 125 mls/hr IV STAT [facility] Last Admin: 01/15/19 15:07 Dose: 125 mls/hr Influenza Virus Vaccine (Pharmacy To Dose - Influenza Vaccine) 1 each IM ONETIME ONE Stop: 01/15/19 18:19 Influenza Virus Vaccine (Fluzone Quad 8080-8087 Syringe) 60 mcg IM .ONCE ONE Stop: 01/15/19 18:31 Pantoprazole Sodium (Protonix Iv) 40 mg IV Q24H [facility] Last Admin: 01/15/19 17:49 Dose: Not Given - Exam General: Alert, Sedated (in and out of sleeping, only keeps eyes open for short period of time). No: Oriented Lungs: Clear to Auscultation, Normal Respiratory Effort Cardiovascular: Regular Rate, Regular Rhythm GI/Abdominal Exam: Distended, Hepatomegaly. No: Normal Bowel Sounds Extremities: Normal Inspection, Normal Range of Motion, Non-Tender, No Pedal Edema Neurological: No New Focal Deficit Psy/Mental Status: Alert - Problem List & Annotations (1) AMS (altered mental status) SNOMED Code(s): 546801959 Code(s): R41.82 - ALTERED MENTAL STATUS, UNSPECIFIED Status: Acute Current Visit: Yes (2) Leukocytosis SNOMED Code(s): 091770065, 236713836 Code(s): D72.829 - ELEVATED WHITE BLOOD CELL COUNT, UNSPECIFIED Status: Acute Current Visit: Yes (3) Colon cancer metastasized to liver SNOMED Code(s): 822255178, 078096880 Code(s): C18.9 - MALIGNANT NEOPLASM OF COLON, UNSPECIFIED; C78.7 - SECONDARY MALIG NEOPLASM OF LIVER AND INTRAHEPATIC BILE DUCT Status: Acute Current Visit: Yes (4) Abdominal pain SNOMED Code(s): 16482415 Code(s): R10.9 - UNSPECIFIED ABDOMINAL PAIN Status: Acute Current Visit: Yes Qualifiers: Abdominal location: right upper quadrant Qualified Code(s): R10.11 - Right upper quadrant pain (5) Metastatic cancer SNOMED Code(s): 966643605 Code(s): C79.9 - SECONDARY MALIGNANT NEOPLASM OF UNSPECIFIED SITE Status: Acute Current Visit: Yes - Problem List Review Problem List Initiated/Reviewed/Updated: No - My Orders Last 24 Hours: My Active Orders 01/16/19 10:54 Ketorolac [Toradol] 30 mg IVPUSH Q6H PRN 01/16/19 11:34 Consult to Hospice [CONS] Routine 01/16/19 13:28 Patient Status [ADT] Stat 01/18/19 05:11 BASIC METABOLIC PANEL,BMP [CHEM] AM CBC WITH AUTO DIFF [HEME] AM - Plan Plan:: This 53 year old female with metastatic colon cancer presented with uncontrolled abdominal pain and leukocytosis 1. Leukocytosis:Stable, 14,000. Continue Levaquin 750 mg IV, no obvious source of infection noted. Will continue for now, could be secondary to advancing cancer. 2. Metastatic colon cancer: Head CT negative. Fentanyl 125 mcg patch and Oxycodone 20 mg every 4 hours PRN pain. Doing better with pain, Hospice consult Again, long discussion with regarding prognosis and recommendations for further treatment. I spoke with KORTNEY Clay in oncology regarding their recommendations, she reports their primary recommendation for her was Hospice. At last appointment she reports they wanted to try this next medication if possible, but liver biopsy was poor sample and not able to be used. After the discussion with Danna, i spoke with and Saad. They ultimately decided against the biopsy and will continue with Hospice. They would like to go home if possible. Vadim feels he will be able to take care of her at home. He ultimately reports he wants to take her to [place] if times allows for her to pass away there.
[2019-01-17] MEDS: Pantoprazole 40 MG in Sodium Chloride 0.9% 10 ML IV SCH (16:21)
[2019-01-17] MEDS: Levofloxacin/Dextrose 5%-Water 750 MG in Premix Bag 1 BAG IV SCH (16:28)
[2019-01-17] MEDS: Ondansetron 4 MG/2 ML SDV IVPUSH PRN (18:27)
[2019-01-17] MEDS: HYDROmorphone 1 MG/ML Syringe IVPUSH PRN (20:04)
[2019-01-18] MEDS: Sodium Chloride 0.9% 1,000 ML IV SCH ×2 (02:01→09:45)
[2019-01-18] MEDS: HYDROmorphone 1 MG/ML Syringe IVPUSH PRN ×3 (04:16→11:38)
[2019-01-18] MEDS: Prochlorperazine 10 MG Tab PO SCH ×2 (04:17→06:12)
[2019-01-18 07:18] LABS: BLOOD UREA NITROGEN,BUN 4 mg/dL (7.0-18.0); CARBON DIOXIDE,CO2 26.5 mmol/L (21.0-32.0); CHLORIDE,CL 96 mmol/L (98-107); GLUCOSE RANDOM 90 mg/dL (74-106); POTASSIUM,K 3.7 mmol/L (3.5-5.1); SODIUM,NA 133 mmol/L (136-145)
[2019-01-18] MEDS: oxyCODONE 5 MG Tab PO PRN (07:41)
[2019-01-18] MEDS: Docusate Sodium 100 MG Cap PO SCH (09:45)
--- NOTE | 2019-01-18 11:47 | PCM.DCSUM1 ---
Discharge Summary - Hospital Course Brief History: This 53 year old female with pmh of stage IV metastatic colon cancer with mets to lung, liver and peritoneum presented to the ED with complaints of abdominal pain. Her and her report the Oxycodone is not helping her pain. She denies chest pain or SOB at home. No urinary complaints. Complains of constipation, no BM in the last 2 days. Reports increased pain to lower back. She did take Miralax today to help with constipation. She denies fevers, chills, sore throat or sinus congestion. She recently had liver biopsy to explore further treatment with Oncology so decision yet has been made regarding when this would be starting. Int he ED leukocytosis noted at 16,720, hgb 8.6, platelets 510, Na 132, Cl 95, BUN 9 and Cr 0.7. Abdominal Xray reveals hepatomegaly. UA negative. Previous imaging obtained 1 week ago revealed increasing pulmonary nodules as well as progression in carcinomatosis. Diagnosis: Stroke: No - Discharge Data Discharge Date: 01/18/19 Discharge Disposition: DC/Tfer to Hospice - Home 52 Condition: Good - Referral to Home Health Primary Care Physician: PCP Unknown - Discharge Diagnosis/Problem(s) (1) AMS (altered mental status) SNOMED Code(s): 243344204 ICD Code: R41.82 - ALTERED MENTAL STATUS, UNSPECIFIED Status: Acute Current Visit: Yes (2) Leukocytosis SNOMED Code(s): 218231995, 937702475 ICD Code: D72.829 - ELEVATED WHITE BLOOD CELL COUNT, UNSPECIFIED Status: Acute Current Visit: Yes (3) Colon cancer metastasized to liver SNOMED Code(s): 224381483, 085172327 ICD Code: C18.9 - MALIGNANT NEOPLASM OF COLON, UNSPECIFIED; C78.7 - SECONDARY MALIG NEOPLASM OF LIVER AND INTRAHEPATIC BILE DUCT Status: Acute Current Visit: Yes (4) Abdominal pain SNOMED Code(s): 13922615 ICD Code: R10.9 - UNSPECIFIED ABDOMINAL PAIN Status: Acute Current Visit : Yes Qualifiers: Abdominal location: right upper quadrant Qualified Code(s): R10.11 - Right upper quadrant pain (5) Metastatic cancer SNOMED Code(s): 236463198 ICD Code: C79.9 - SECONDARY MALIGNANT NEOPLASM OF UNSPECIFIED SITE Status: Acute Current Visit: Yes - Patient Summary/Data Consults: Consultations 01/16/19 11:34 Consult to Hospice [CONS] Routine - Patient Instructions Diet: Regular Diet as Tolerated Activity: As Tolerated Notify Provider of: Fever, Increased Pain, Swelling and Redness, Drainage, Nausea and/or Vomiting - Discharge Plan *PRESCRIPTION DRUG MONITORING PROGRAM REVIEWED*: Not Applicable *COPY OF PRESCRIPTION DRUG MONITORING REPORT IN PATIENT NEYMAR: Not Applicable Home Medications: Home Meds Ondansetron [Zofran] 8 mg PO Q8H PRN 07/07/18 [History] Prochlorperazine Maleate [Compazine] 10 mg PO TID 07/07/18 [History] Albuterol Sulfate [Proair Hfa] 2 puff IH Q4H PRN 01/05/19 [History] Docusate Sodium [Colace] 100 mg PO BID cap 01/18/19 [Rx] fentaNYL [Duragesic] 25 mcg TRDERM Q72H patch 01/18/19 [Rx] fentaNYL [Duragesic] 100 mcg TRDERM Q72H patch 01/18/19 [Rx] oxyCODONE 20 mg PO Q4H PRN tablet 01/18/19 [Rx] Oxygen Therapy Mode: Room Air Patient Handouts: Abdominal Pain, Adult, [id number] - Discharge Summary/Plan Comment DC Time >30 min.: No Discharge Summary/Plan Comment: Admitting Diagnoses: Intractable abdominal pain Leukocytosis Metastatic colon cancer Discharge Diagnoses: Metastatic colon cancer Hospice Saad was admitted secondary to intractable abdominal pain secondary to metastatic colon cancer. She was fully evaluated for confusion and infection. No obvious source found for infection. VS have been stable. She was treated with Levaquin for possible pneumonia, but Xray only revealed worsening pulmonary metastatic disease. Fentanyl patch increased to 125 mcg with Oxycodone 20 mg PO every 4 hours PRN pain. She has had good control on pain since these changes were made. Significant time spent with family and Saad regarding code status, prognosis with metastatic colon cancer with worsening disease noted on recent imaging and our recommendation for Hospice care. They had decided on DNR status and eventually decided against further liver biopsy and opted for Hospice care at home. She will be discharged today with new pain medication regimen with Hospice. They are to contact Hospice with any concerns regarding worsening pain or condition. Vadim and Saad aware. - General Info Date of Service: 01/18/19 Admission Dx/Problem (Free Text: Admission Diagnosis/Problem Admission Diagnosis/Problem Abdominal pain Subjective Update: Feeling ok today, pain controlled still needing breakthrough medication. But pain medication has helped significantly with pain. Functional Status: Reports: Pain Controlled, Tolerating Diet, Ambulating, Urinating - Review of Systems General: Reports: Weakness, Fatigue Pulmonary: Reports: No Symptoms. Denies: Shortness of Breath Cardiovascular: Reports: No Symptoms. Denies: Chest Pain Gastrointestinal: Reports: Abdominal Pain. Denies: Nausea, Vomiting Genitourinary: Reports: No Symptoms. Denies: Dysuria, Frequency, Burning Musculoskeletal: Reports: Back Pain Skin: Reports: No Symptoms Neurological: Reports: No Symptoms Psychiatric: Reports: No Symptoms - Patient Data Vitals - Most Recent: Last Vital Signs Temp 97.7 F 01/18/19 08:00 Pulse 89 01/18/19 08:00 Resp 15 01/18/19 08:00 BP 117/73 01/18/19 08:00 Pulse Ox 94 L 01/18/19 08:00 Weight - Most Recent: 58.06 kg I&O - Last 24 hours: Intake & Output 01/17/19 01/18/19 01/18/19 22:59 06:59 14:59 Intake Total 3010 1703 100 Output Total 700 800 Balance 2310 903 100 Lab Results - Last 24 hrs: Laboratory Results - last 24 hr 01/18/19 01/18/19 Range/Units 06:08 06:08 WBC 16.73 H (4.0-11.0) K/uL RBC 3.29 L (4.30-5.90) M/uL Hgb 7.8 L (12.0-16.0) g/dL Hct 25.1 L (36.0-46.0) % MCV 76.3 L (80.0-98.0) fL MCH 23.7 L (27.0-32.0) pg MCHC 31.1 (31.0-37.0) g/dL RDW Std Deviation 57.3 (28.0-62.0) fl RDW Coeff of [place] 21 H (11.0-15.0) % Plt Count 475 H (150-400) K/uL MPV 8.80 (7.40-12.00) fL Add Manual Diff YES Neutrophils % (Manual) 83 H (48.0-80.0) % Lymphocytes % (Manual) 5 L (16.0-40.0) % Monocytes % (Manual) 12 (0.0-15.0) % Nucleated RBC % 0.0 /100WBC Absolute Seg Neuts 13.9 H (1.4-5.7) Lymphocytes # (Manual) 0.8 (0.6-2.4) Monocytes # (Manual) 2.0 H (0.0-0.8) Nucleated RBCs # 0 K/uL Sodium 133 L (136-145) mmol/L Potassium 3.7 (3.5-5.1) mmol/L Chloride 96 L (98-107) mmol/L Carbon Dioxide 26.5 (21.0-32.0) mmol/L BUN 4 L (7.0-18.0) mg/dL Creatinine 0.5 L (0.6-1.0) mg/dL Est Cr Clr Drug Dosing 122.01 mL/min Estimated GFR (MDRD) > 60.0 ml/min Glucose 90 (74-106) mg/dL Calcium 8.2 L (8.5-10.1) mg/dL NAZIA Results - Last 24 hrs: Microbiology 01/15/19 17:30 Aerobic Blood Culture - Preliminary Blood - Venous - Lab Draw NO GROWTH AFTER 2 DAYS Anaerobic Blood Culture - Preliminary NO GROWTH AFTER 2 DAYS 01/15/19 16:57 Aerobic Blood Culture - Preliminary Blood - Venous NO GROWTH AFTER 2 DAYS Anaerobic Blood Culture - Final Med Orders - Current: Current Medications Albuterol/Ipratropium (Duoneb 3.0-0.5 Mg/3 Ml) 3 ml NEB Q4HRRT PRN PRN Reason: Shortness Of Breath/wheezing Bisacodyl (Dulcolax) 10 mg RECTAL DAILY PRN PRN Reason: Constipation Last Admin: 01/15/19 17:54 Dose: 10 mg Docusate Sodium (Colace) 100 mg PO BID [facility] Last Admin: 01/18/19 09:45 Dose: 100 mg Fentanyl (Duragesic) 100 mcg TRDERM Q72H [facility] Last Admin: 01/18/19 11:39 Dose: 100 mcg Fentanyl (Duragesic) 25 mcg TRDERM Q72H [facility] Last Admin: 01/18/19 11:38 Dose: 25 mcg Hydromorphone HCl (Dilaudid) 1 mg IVPUSH Q4H PRN PRN Reason: Breakthrough Pain Last Admin: 01/18/19 11:38 Dose: 1 mg Pantoprazole Sodium 40 mg/ (Sodium Chloride) 10 mls @ 300 mls/hr IV Q24H [facility] Last Admin: 01/17/19 16:21 Dose: 300 mls/hr Levofloxacin/Dextrose 750 mg/ (Premix) 150 mls @ 100 mls/hr IV Q24H [facility] Last Admin: 01/17/19 16:28 Dose: 100 mls/hr Sodium Chloride (Normal Saline) 1,000 mls @ 125 mls/hr IV Q8H [facility] Last Admin: 01/18/19 09:45 Dose: 125 mls/hr Ketorolac Tromethamine (Toradol) 30 mg IVPUSH Q6H PRN PRN Reason: Pain Stop: 01/21/19 10:55 Last Admin: 01/18/19 10:42 Dose: 30 mg Ondansetron HCl (Zofran) 4 mg IVPUSH Q4H PRN PRN Reason: Nausea Last Admin: 01/17/19 18:27 Dose: 4 mg Oxycodone HCl (Oxycodone) 20 mg PO Q4H PRN PRN Reason: Pain (moderate 4-6) Last Admin: 01/18/19 07:41 Dose: 20 mg Prochlorperazine Maleate (Compazine) 10 mg PO TID [facility] Last Admin: 01/18/19 06:12 Dose: Not Given Discontinued Medications Ceftriaxone Sodium (Rocephin) 1 gm IVPUSH Q24H [facility] Fentanyl (Duragesic) 100 mcg TRDERM Q72H [facility] Last Admin: 01/15/19 17:36 Dose: 100 mcg Fentanyl (Duragesic) 25 mcg TRDERM Q72H [facility] Last Admin: 01/15/19 17:37 Dose: 25 mcg Heparin Sodium (Porcine) (Heparin Sodium) 5,000 units SUBCUT Q12H [facility] Last Admin: 01/17/19 04:55 Dose: 5,000 units Hydromorphone HCl (Dilaudid) 1 mg IVPUSH ONETIME ONE Stop: 01/15/19 13:43 Last Admin: 01/15/19 13:54 Dose: 1 mg Sodium Chloride (Normal Saline) 1,000 mls @ 125 mls/hr IV STAT [facility] Last Admin: 01/15/19 15:07 Dose: 125 mls/hr Influenza Virus Vaccine (Pharmacy To Dose - Influenza Vaccine) 1 each IM ONETIME ONE Stop: 01/15/19 18:19 Influenza Virus Vaccine (Fluzone Quad [id number] Syringe) 60 mcg IM .ONCE ONE Stop: 01/15/19 18:31 Pantoprazole Sodium (Protonix Iv) 40 mg IV Q24H [facility] Last Admin: 01/15/19 17:49 Dose: Not Given - Exam General: Reports: Alert, Oriented, Cooperative, No Acute Distress, Sedated, Other (pale, cachetic in appearance.) Lungs: Reports: Clear to Auscultation, Normal Respiratory Effort Cardiovascular: Reports: Regular Rate, Regular Rhythm GI/Abdominal Exam: Normal Bowel Sounds, Distended, Tender, Hepatomegaly Wound/Incisions: Reports: Healing Well Neurological: Reports: No New Focal Deficit Psy/Mental Status: Reports: Alert, Normal Affect, Normal Mood
[2019-01-18] MEDS ORDERED: fentaNYL 25 MCG/HR Transdermal Patch TRDERM SCH (12:00)
[2019-01-18] MEDS ORDERED: fentaNYL 100 MCG/HR Transdermal Patch TRDERM SCH (12:00)
== END 2019-01-18 13:35 | disposition hospice, home (50) | DRG 948 ==
LOC: MW.ED 12:53 → MW.MS 15:14 → OBSVTOIN 01-16 13:28
PROVIDERS: ADMIT Internal Medicine; ATTEND Internal Medicine
DX: G89.3 Neoplasm related pain (acute) (chronic) (principal); C18.9 Malignant neoplasm of colon, unspecified; C18.0 Malignant neoplasm of cecum; C78.7 Secondary malignant neoplasm of liver and intrahepatic bile duct; C78.00 Secondary malignant neoplasm of unspecified lung; C78.6 Secondary malignant neoplasm of retroperitoneum and peritoneum; R10.11 Right upper quadrant pain; K59.00 Constipation, unspecified; Z51.5 Encounter for palliative care; Z66 Do not resuscitate; M54.5 Low back pain; R16.0 Hepatomegaly, not elsewhere classified; D72.829 Elevated white blood cell count, unspecified; I10 Essential (primary) hypertension; J44.9 Chronic obstructive pulmonary disease, unspecified; D50.9 Iron deficiency anemia, unspecified; F41.9 Anxiety disorder, unspecified; R41.82 Altered mental status, unspecified; F31.9 Bipolar disorder, unspecified; Z87.891 Personal history of nicotine dependence; Z79.899 Other long term (current) drug therapy; Z88.0 Allergy status to penicillin; Z88.8 Allergy status to other drugs, medicaments and biological substances
CPT/HCPCS: 36415 ×2; 70450; 71045; 74019; 80048; 80053; 81003; 83605 ×2; 83690; 84484; 85025 ×2; 85610; 87040 ×2; 93005; 96361; 96374; 99285; A9270 ×10; C9113; J1170 ×3; J1644 ×2; J1956; J2405; J7040 ×3; J7050; 96372; 96375; 96376; 99283; G0378; J1642; J1885; Q0164